=== PATIENT | male | born 2000 | race Caucasian/White ===

== ENCOUNTER 2025-07-25 18:20 | Emergency (ER) | payer SELFPAY ==
[2025-07-25 18:20] VITALS: BP 141/73; PULSE 109; RESP 22; TEMP 37.4; O2SAT 99; BMI 24.4
--- OUTSIDE RECORDS SUMMARY | 2025-07-25 18:42 | XMS_ITS | Encounter Summary ---
Author Organization [facility] Address [address] [place] [address] Care Team Providers Care Holistic Pulser Name Role Phone Franky Starkey MD Primary Care Provider +1 -[phone] Encounter Details Date Type Department Care Team (Latest Contact Info) Description 09/25/2003 Outpatient Historical 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
--- OUTSIDE RECORDS SUMMARY | 2025-07-25 18:42 | XMS_ITS | Encounter Summary ---
Author Organization [facility] Address [address] [place] [address] Care Team Providers Care E Commerce Retailer Name Role Phone Franky Starkey MD Primary Care Provider +1 -[phone] Encounter Details Date Type Department Care Team (Latest Contact Info) Description 08/22/2001 [facility] [place] [address] [phone] Alfred Vera MD [address] [phone] Unspecified otitis media (Primary Dx) Social History Tobacco Use Types Packs/Day Years Used Date Smoking Tobacco: Never Assessed Sex and Gender Information Value Date Recorded Sex Assigned at Not on file Legal 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
--- OUTSIDE RECORDS SUMMARY | 2025-07-25 18:42 | XMS_ITS | Encounter Summary ---
Author Organization [facility] Address [address] 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
--- OUTSIDE RECORDS SUMMARY | 2025-07-25 18:42 | XMS_ITS | Encounter Summary ---
Author Organization [facility] Address [address] [place] [address] Care Team Providers Care Patient Ambassador Name Role Phone Franky Starkey MD Primary Care Provider +1 -[phone] Encounter Details Date Type Department Care Team (Latest Contact Info) Description 10/25/2001 Outpatient Historical [facility] Medicine [place] [address] [address] Car Suazo DO NO ADDRESS ON FILE ACUTE URI NOS (Primary Dx) Social History Tobacco Use Types Packs/Day Years Used Date Smoking Tobacco: Never Assessed Sex and Gender Information Value Date Recorded Sex Assigned at Not on file 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
--- OUTSIDE RECORDS SUMMARY | 2025-07-25 18:42 | XMS_ITS | Encounter Summary ---
Author Organization [facility] Address [address] [place] [address] Care Team Providers Care Sound Mixer Name Role Phone Franky Starkey MD Primary Care Provider +1 -[phone] Encounter Details Date Type Department Care Team (Latest Contact Info) Description 12/27/2002 Outpatient Historical [facility] Medicine [place] [address] [phone] Alfred Vera MD [address] [address] ACUTE URI NOS (Primary Dx) Social History Tobacco Use Types Packs/Day Years Used Date Smoking Tobacco: Never Assessed Sex and Gender Information Value Date Recorded Sex Assigned at Not on file Legal 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
--- OUTSIDE RECORDS SUMMARY | 2025-07-25 18:42 | XMS_ITS | Encounter Summary ---
Author Organization [facility] Address [address] [place] [address] Care Team Providers Care Slate Roofer Helper Name Role Phone Franky Starkey MD Primary Care Provider +1 -[phone] Encounter Details Date Type Department Care Team (Latest Contact Info) Description 02/20/2002 Outpatient Historical [facility] Family Medicine- [place] [address] [facility] [place] [address] Nevin Hinojosa MD NO ADDRESS ON FILE ACUTE PHARYNGITIS (Primary Dx) Social History Tobacco Use Types Packs/Day Years Used Date Smoking Tobacco: Never Assessed Sex and Gender Information Value Date Recorded Sex Assigned at Not on file 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
--- OUTSIDE RECORDS SUMMARY | 2025-07-25 18:42 | XMS_ITS | Encounter Summary ---
Author Organization [facility] Address [address] [place] [address] Care Team Providers Care Data Migration Lead Name Role Phone Franky Starkey MD Primary Care Provider +1 -[phone] Encounter Details Date Type Department Care Team (Latest Contact Info) Description 03/09/2003 Outpatient Historical 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
--- OUTSIDE RECORDS SUMMARY | 2025-07-25 18:42 | XMS_ITS | Encounter Summary ---
Author Organization [facility] Address [address] [place] [address] Care Team Providers Care Estate Administrator Name Role Phone Franky Starkey MD Primary Care Provider +1 -[phone] Encounter Details Date Type Department Care Team (Latest Contact Info) Description 07/31/2002 Outpatient Historical [facility] Medicine [place] [address] [phone] Alfred Vera MD [address] [phone] OTITIS MEDIA NOS (Primary Dx); ACUTE BRONCHITIS; IMPACTED CERUMEN Social History Tobacco Use Types Packs/Day Years Used Date Smoking Tobacco: Never Assessed Sex and Gender Information Value Date Recorded Sex Assigned at Not on file Legal Sex Male 3:58 AM APPEALS ANALYST Gender Identity Not on file Sexual Orientation Not on file documented as of this encounter Plan of Treatment Not on file documented as of this encounter Visit Diagnoses Diagnosis Unspecified otitis media- Primary Acute bronchitis Impacted cerumen documented in this encounter Care Teams Estate Administrator Relationship Specialty Start Date End Date Franky Starkey MD [address] [phone] PCP - General Family Practice 03/03/17 09/07/17 documented as of this encounter
--- OUTSIDE RECORDS SUMMARY | 2025-07-25 18:42 | XMS_ITS | Encounter Summary ---
Author Organization [facility] Address [address] [place] [address] Care Team Providers Care Continuous Miner Name Role Phone Franky Starkey MD Primary Care Provider +1 -[phone] Encounter Details Date Type Department Care Team (Latest Contact Info) Description 12/04/2002 Outpatient Historical [facility] Medicine [place] [address] [phone] Alfred Vera MD [address] [address] INFEC OTITIS EXTERNA NOS (Primary Dx); IMPACTED CERUMEN; SPEECH/LANGUAGE DIS NEC Social History Tobacco Use Types Packs/Day Years Used Date Smoking Tobacco: Never Assessed Sex and Gender Information Value Date Recorded Sex Assigned at Not on file Legal Sex Male 3:58 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
--- OUTSIDE RECORDS SUMMARY | 2025-07-25 18:43 | XMS_ITS | Encounter Summary ---
Author Organization [facility] Address [address] [place] [address] Care Team Providers Care Candy Cutter Machine Name Role Phone Franky Starkey MD Primary Care Provider +1 -[phone] Encounter Details Date Type Department Care Team (Late st Contact Info) Description 12/23/2005 Outpatient Historical [facility] [address] [place] [phone] Social History Tobacco Use Types Packs/Day Years Used Date Smoking Tobacco: Never Assessed Sex and Gender Information Value Date Recorded Sex Assigned at Not on file Legal 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
--- OUTSIDE RECORDS SUMMARY | 2025-07-25 18:43 | XMS_ITS | Encounter Summary ---
Author Organization [facility] Address [address] [place] [address] Care Team Providers Care Indian Blanket Weaver Name Role Phone Franky Starkey MD Primary Care Provider +1 -[phone] Encounter Details Date Type Department Care Team (Latest Contact Info) Description 10/29/2003 Outpatient Historical [facility] Medicine [place] [address] [address] Car Suazo DO NO ADDRESS ON FILE ACUTE BRONCHITIS (Primary Dx) Social History Tobacco Use Types Packs/Day Years Used Date Smoking Tobacco: Never Assessed Sex and Gender Information Value Date Recorded Sex Assigned at Not on file Legal 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
--- OUTSIDE RECORDS SUMMARY | 2025-07-25 18:43 | XMS_ITS | Encounter Summary ---
Author Organization [facility] Address [address] [place] [address] Care Team Providers Care Etymology Teacher Name Role Phone Franky Starkey MD Primary Care Provider +1 -[phone] Encounter Details Date Type Department Care Team (Latest Contact Info) Description 12/06/2006 Outpatient Historical [facility] Medicine [place] [address] [address] Shoshana Mills NP NO ADDRESS ON FILE Acute Pharyngitis (Primary Dx); Cough Social History Tobacco Use Types Packs/Day Years Used Date Smoking Tobacco: Never Assessed Sex and Gender Information Value Date Recorded Sex Assigned at Not on file Legal 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
--- OUTSIDE RECORDS SUMMARY | 2025-07-25 18:43 | XMS_ITS | Encounter Summary ---
Author Organization [facility] Address [address] [place] [address] Care Team Providers Care Aerospace Engineer Name Role Phone Franky Starkey MD Primary Care Provider +1 -[phone] Encounter Details Date Type Department Care Team (Latest Contact Info) Description 12/22/2005 Outpatient Historical [facility] Medicine [place] [address] [phone] Gi Perez, TENTERING MACHINE FEEDER [address] [place] [phone] ACUTE URI NOS (Primary Dx); COUGH Social History Tobacco Use Types Packs/Day Years Used Date Smoking Tobacco: Never Assessed Sex and Gender Information Value Date Recorded Sex Assigned at Not on file Legal Sex Male 3:58 AM HAT IRONER Gender Identity Not on file Sexual Orientation Not on file documented as of this encounter Plan of Treatment Not on file documented as of this encounter Visit Diagnoses Diagnosis Acute upper respiratory infections of unspecified site- Primary Cough documented in this encounter Care Teams Aerospace Engineer Relationship Specialty Start Date End Date Franky Starkey MD [address] [phone] PCP - General Family Practice 03/03/17 09/07/17 documented as of this encounter
--- OUTSIDE RECORDS SUMMARY | 2025-07-25 18:43 | XMS_ITS | Encounter Summary ---
Author Organization [facility] Address [address] [place] [address] Care Team Providers Care After School Coordinator Name Role Phone Franky Starkey MD Primary Care Provider +1 -[phone] Encounter Details Date Type Department Care Team (Latest Contact Info) Description 12/09/2005 Outpatient Historical [facility] Medicine [place] [address] [address] Nevin Hinojosa MD NO ADDRESS ON FILE Dermatitis due to plant (Primary Dx) Social History Tobacco Use Types Packs/Day Years Used Date Smoking Tobacco: Never Assessed Sex and Gender Information Value Date Recorded Sex Assigned at Not on file Legal Sex Male 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
--- OUTSIDE RECORDS SUMMARY | 2025-07-25 18:43 | XMS_ITS | Encounter Summary ---
Author Organization [facility] Address [address] [place] [address] Care Team Providers Care Electronic Scale Assembler And Tester Name Role Phone Franky Starkey MD Primary Care Provider +1 -[phone] Encounter Details Date Type Department Care Team (Latest Contact Info) Description 01/16/2005 Outpatient Historical [facility] Medicine [place] [address] [phone] Shoshana Mills NP NO ADDRESS ON FILE Routine child health exam (Primary Dx) Social History Tobacco Use Types Packs/Day Years Used Date Smoking Tobacco: Never Assessed Sex and Gender Information Value Date Recorded Sex Assigned at Not on file Legal 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
--- OUTSIDE RECORDS SUMMARY | 2025-07-25 18:43 | XMS_ITS | Encounter Summary ---
Author Organization [facility] Address [address] [place] [address] Care Team Providers Care Operations Manager Name Role Phone Franky Starkey MD Primary Care Provider +1 -[phone] Encounter Details Date Type Department Care Team (Latest Contact Info) Description 02/04/2005 Outpatient Historical [facility] Family Medicine- [place] [address] [place] [address] Shoshana Mills NP NO ADDRESS ON FILE ACUTE PHARYNGITIS (Primary Dx); ACUTE BRONCHITIS Social History Tobacco Use Types Packs/Day Years Used Date Smoking Tobacco: Never Assessed Sex and Gender Information Value Date Recorded Sex Assigned at Not on file 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
--- OUTSIDE RECORDS SUMMARY | 2025-07-25 18:43 | XMS_ITS | Encounter Summary ---
Author Organization [facility] Address [address] [place] [address] Care Team Providers Care Dragger Out Name Role Phone Franky Starkey MD Primary Care Provider +1 -[phone] Encounter Details Date Type Department Care Team (Latest Contact Info) Description 04/22/2006 Outpatient Historical [facility] Medicine [place] [address] [address] Nevin Hinojosa MD NO ADDRESS ON FILE Dermatitis due to Plant (Primary Dx) Social History Tobacco Use Types Packs/Day Years Used Date Smoking Tobacco: Never Assessed Sex and Gender Information Value Date Recorded Sex Assigned at Not on file Legal Sex Male 3:58 AM ADON Gender Identity Not on file Sexual Orientation Not on file documented as of this encounter Plan of Treatment Not on file documented as of this encounter Visit Diagnoses Diagnosis Dermatitis due to plant- Primary Contact dermatitis and other eczema due to plants (except food) documented in this encounter Care Teams Dragger Out Relationship Specialty Start Date End Date Franky Starkey MD [address] [phone] PCP - General Family Practice 03/03/17 09/07/17 documented as of this encounter
--- OUTSIDE RECORDS SUMMARY | 2025-07-25 18:43 | XMS_ITS | Encounter Summary ---
Author Organization [facility] Address [address] [place] [address] Care Team Providers Care Bicycle Repairer Name Role Phone Franky Starkey MD Primary Care Provider +1 -[phone] Encounter Details Date Type Department Care Team (Latest Contact Info) Description 07/20/2006 Outpatient Historical [facility] Medicine [place] [address] [phone] Gi Perez, DIGITAL ASSOCIATE [address] [place] [phone] Acute Upper Respiratory Infections of Unspecified Site (Primary Dx) Social History Tobacco Use Types Packs/Day Years Used Date Smoking Tobacco: Never Assessed Sex and Gender Information Value Date Recorded Sex Assigned at Not on file Legal 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
--- OUTSIDE RECORDS SUMMARY | 2025-07-25 18:43 | XMS_ITS | Clinical Summary ---
Author Organization [facility] [place] [address] Care Team Providers Care It Trainer Name Role Phone Unavailable Primary Care Provider Unavailabl e Allergies No known active allergies Medications cephALEXin (KEFLEX) 500 mg capsule Take 1 Capsule (500 mg) by mouth 4 times daily. 20 Capsule None 12/21/2018 Active HYDROcodone-indigo taminophen (NORCO) 5-325 mg tablet Take 1 Tablet by mouth every 4 hours as needed for Pain. Max Daily Amount: 6 Tablets 4 Tablet 01/12/2019 Active Active Problems Problem Noted Date Diagnosed Date Cellulitis of left lower extremity 05/20/2020 Environmental tobacco smoke exposure 11/28/2015 Immunizations Immunization Administration Dates Next Due (ADACEL/BOOSTRIX)(10 YR UP) TDAP VACCINE, 0.5ML, IM 12/21/2018 (M-M-R II/PRIORIX)(12 MO UP) MEASLES, MUMPS AND RUBELLA VIRUS VACCINE, 0.5 ML IM/SUBCUT 01/16/2005 Dt Dtp Dtap Vaccine 01/16/2005 HPV Vaccine 3 Dose IM VFC 09/05/2010 IPV/OPV 01/16/2005 Meningococcal A Conjugate Vaccine IM VFC 010 Family History Medical History Relation Name Comments Healthy Father Ovarian Cancer Maternal Grandmother Cancer Mother cervical cancer Colon Cancer Paternal Grandfather Healthy Paternal Grandmother Relation Name Status Comments Father Alive Maternal Grandmother Alive Mother Alive Paternal Grandfather Paternal Grandmother Social History Tobacco Use Types Packs/Day Years Used Date Smoking Tobacco: Every Day Cigarettes Smokeless Tobacco: Never Alcohol Use Standard Drinks/Week Comments No 0 (1 standard drink = 0.6 oz pur e alcohol) Sex and Gender Information Value Date Recorded Sex Assigned at Not on file Legal Sex Male 3:58 AM 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 Gender Identity Not on file Sexual Orientation Not on file Occupation Industry Job Start Date Job End Date Not on file Not on file Not on file Not on file Last Filed Vital Signs Vital Sign Reading Time Taken Comments Blood Pressure 151/78 09/15/2020 4:10 PM 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 Pulse 94 05/16/2020 3:44 PM CDT Temperature 36.7 C (98 F) 09/15/2020 4:10 PM 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 Respiratory Rate 18 09/15/2020 3:30 PM 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 Oxygen Saturation 100% 09/15/2020 4:10 PM 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 Inhaled Oxygen Concentration - - Weight 81.5 kg (179 lb 9.6 oz) 09/15/2020 3:30 P M 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 Height 182.9 cm (6') 09/15/2020 3:30 PM 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 Body Mass Index 24.36 09/15/2020 3:30 PM 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 Plan of Treatment Health Maintenance Due Date Last Done Comments HPV VACCINES (2 - Male 2-dose series) 03/06/2011 HEPATITIS B VACCINES (1 of 3 - 19+ 3-dose series) 2018 INFLUENZA VACCINE (#1) 2025 DTAP/TDAP/TD VACCINES (3 - Td or Tdap) 12/21/2028, 01/16/2005 CHLAMYDIA SCREENING (ANNUAL) 11-24 YEARS Discontinued 05/16/2020 Procedures Procedure Name Priority Date/Time Associated Diagnosis Comments GC/CHLAMYDIA, URINE Stat 05/16/2020 4 :14 PM CDT from Last 3 Months or Most Recently Relevant to Health Maintenance Results * GC/CHLAMYDIA, URINE (05/16/2020 4:14 PM CDT) CHLAMYDIA DNA AMPLIFICATION NOT DETECTED Not Detected 05/17/2020 7:06 PM CDT [facility] GC DNA AMPLIFICATION NOT DETECTED Not Detected 05/17/2020 7:06 PM CDT [facility] Urine URINE SPECIMEN / Unknown Collection / Unknown 05/16/2020 4:14 PM CDT 05/16/2020 4:40 PM CDT Narrative [facility] - 05/17/2020 7:06 PM CDT Results should not be used for the evaluation of suspected sexual abuse or for other medico-legal indications. The only legally accepted results are from culture. Results cannot be used to assess therapeutic success or failure since nucleic acids may persist following antimicrobial therapy. Raciel Avelar DO URINE ORDERABLES COM Final Re sult [id number] [address] [place] [address] from Last 3 Months or Most Recently Relevant to Health Maintenance Insurance [employer] * Guarantor: NATANAEL WHITTAKER Account Type Relation to Patient Date of Phone Billing Address Third Constitution Party Liability Other
--- OUTSIDE RECORDS SUMMARY | 2025-07-25 18:43 | XMS_ITS | Encounter Summary ---
Author Organization [facility] Address [address] [place] [address] Care Team Providers Care Retail Merchandising Manager Name Role Phone Franky Starkey MD Primary Care Provider [phone] Encounter Details Date Type Department Care Team (Latest Contact Info) Description 03/12/2004 Outpatient Historical 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
--- OUTSIDE RECORDS SUMMARY | 2025-07-25 18:43 | XMS_ITS | Clinical Summary ---
Author Organization [facility] Address [address] Attn: Epic Prelude ADT [place] [address] Care Team Providers Care Wellness Instructor Name Role Phone Unavailable Primary Care Provider Unavailabl e Allergies No known active allergies Medications gabapentin (NEURONTIN) 300 mg capsule Take 1 Capsule (300 mg) by mouth every 8 hours. 90 Capsule 05/14/2025 Active QUEtiapine (SEROquel) 50 mg tablet Take 1 Tablet (50 mg) by mouth 2 times daily. 30 Tablet 05/14/2025 Active sertraline (ZOLOFT) 50 mg tablet Take 1 Tablet (50 mg) by mouth daily. 30 Tablet 05/15/2025 Active Active Problems Problem Noted Date Diagnosed Date Substance induced mood disorder 05/10/2025 Severe episode of recurrent major depressive disorder, without psychotic features 05/10/2025 COVID-19 virus infection 10/18/2023 Traumatic closed fracture of distal phalanx of finger with minimal displacement 07/21/2022 Nail avulsion, finger, initial encounter 022 Current severe episode of ma victorino depressive disorder without psychotic features without prior episode 08/07/2021 Suicide attempt 08/07/2021 Drug overdose, intentional self-harm, initial en counter 08/07/2021 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 Cannabis abuse, daily use 08/07/2021 Intentional acetaminophen overdose 08/01/2021 Suicide ideation 08/01/2021 Methamphetamine abuse 08/01/2021 Abrasion of right cornea 08/01/2021 Cellulitis of left lower extremity 05/20/2020 Tobacco use disorder 11/28/2015 Suicidal behavior with attempted self-injury Encounters Date Type Department Care Team Description 07/11/2025 External Device Data [facility]CTION Provider, Abstract 06/12/2025 External Device Data [facility] Provider, Abstract 06/12/2025 External Device Data [facility] Provider, Abstract 06/05/2025 External Device Data [facility] Provider, Abstract 06/05/2025 External Device Data [facility] Provider, Abstract 06/05/2025 External Device Data [facility] Provider, Abstract 05/13/2025 Plan of Care Documentation [address] [address] 05/11/2025 Plan of Care Documentation [address] [address] 05/10/2025 Plan of Care Documentation [address] [address] 05/09/2025 1:18 PM CDT - 05/14/2025 9:36 PM CDT Hospital Encounter [address] [address] Becki Galvan MD Substance induced mood disorder (CMS/HCC) Discharge Disposition: Home or Self Care 05/09/2025 12:30 AM CDT - 05/09/2025 11:59 PM CDT Hospital Encounter [facility] [place] [address] [place] [address] Eamon Schreiber MD Ambulance, [facility] Discharge Disposition: [facility] 05/09/2025 Travel 05/08/2025 11:04 PM CDT - 05/09/2025 12:02 PM CDT Emergency [facility] Emergency Department [address] [place] [address] Donald Rosen MD Reinhard, Kevin H, MD Plate, Rachel, MD Suicidal ideation (Primary Dx) [facility] from Last 3 Months Immunizations Immunization Administration Dates Next Due (ADACEL/BOOSTRIX)(10 YR UP) TDAP VACCINE, 0.5ML, IM 08/25/2021,12/21/2018 (M-M-R II/PRIORIX)(12 [place] UP) MEASLES, MUMPS AND [...] Tobacco: Every Day Cigarettes Smokeless Tobacco: Never Tobacco Cessation:Ready to Q uit: Not Asked; Counseling Given: Not Answered Alcohol Use Standard Drinks/Week Comments Not Currently 3 (1 standard drink = 0.6 oz pur e alcohol) Feeling Safe Answer Date Recorded Are you in a relationship wi th someone who hurts you emotionally and/or physically? No 05/09/2025 Food Insecurity Answer Date Recorded Patient needs follow up regardin 05/09/2025 Transportation Needs Answer Date Record ed Patient needs follow up regardin 05/09/2025 Utility Needs Answer Date Recorded Patient needs follow up regardin 05/09/2025 Sex and Gender Information Value Date Recorded Sex Assigned at Not on file Legal Sex Male 1:58 PM [employer] Gender Identity Not on file Sexual Orientation Not on file Last Filed Vital Signs Vital Sign Reading Time Taken Comments Blood Pressure 133/69 05/14/2025 7:44 PM CDT Pulse 79 05/14/2025 7:44 PM CDT Temperature 37.1 C (98.8 F) 05/14/2025 7:44 PM CDT Respiratory Rate 18 05/14/2025 7:44 PM CDT Oxygen Saturation 97% 05/14/2025 7:44 PM CDT Inhaled Oxygen Concentration - - Weight 75.9 kg (167 lb 6.4 oz) 05/09/2025 2:00 P M CDT Height 180.3 cm (5' 11 ) 05/09/2025 2:00 PM CDT Body Mass Index 23.35 05/09/2025 2:00 PM CDT Plan of Treatment Health Maintenance Due Date Last Done Comments HPV VACCINES (2 - Male 2-dos e series) 03/06/2011 09/05/2010 INFLUENZA VACCINE (#1) 2025 DTAP/TDAP/TD VACCINES (4 - T d or Tdap) 08/25/2031 08/25/2021, 12/21/2018, 01/16/2005 HEPATITIS B VACCINES Completed 01/06/2000, 1999, 1999 Abdominal Aortic Aneurysm (A AA) Screening Completed 06/06/2012 Procedures Procedure Name Priority Date/Time Associated Diagnosis Comments EXTRA TUBE (URINE ROSA) Stat 05/09/2025 12:11 AM CDT DRUG SCREEN, URINE Stat 05/09/2025 12 :11 AM CDT URINALYSIS W/REFLEX MICROSCOPIC Stat 05/09/2025 12:11 AM CDT ETHANOL LEVEL Stat 05/08/2025 11:42 PM CDT COMPREHENSIVE METABOLIC PANEL Stat 05/08/2025 11:42 PM CDT CBC WITH DIFFERENTIAL Stat 05/08/2025 11:[address] ABDOMEN PELVIS WO CONTRAST Stat 06/06/2012 4:07 PM CDT Back pain Viral infection in conditions classified elsewhere and of unspecified site from Last 3 Months or Most Recently Relevant to Health Maintenance Results * EXTRA TUBE (URINE ROSA) (05/09/2025 12:11 AM CDT) Urine URINE SPECIMEN OBTAINED BY CLEAN CATCH PROCEDURE / Unknown Collection / Unknown 05/09/2025 12:11 AM CDT 05/09/2025 12:29 AM CDT Donald Rosen MD URINE ORDERABLES Final Result [facility] # [id number] [address] [address] * (ABNORMAL) DRUG SCREEN, URINE (05/09/2025 12:11 AM CDT) [facility] AMPHETAMINE QUAL, URINE Presumptive Positive(A) Negative 05/09/2025 1:13 AM [facility] BARBITURATE QUAL, URINE Negative Negative 05/09/2025 1:13 AM [facility] BENZODIAZEPINE QUAL, URINE Negative Negative 05/09/2025 1:13 AM [facility] COCAINE QUAL URINE Negative Negative 05/09/2025 1:13 AM [facility] OPIATE QUAL, URINE Negative Negative 05/09/2025 1:13 AM [facility] CANNABINOIDS QUAL, URINE Presumptive Positive(A) Negative 05/09/2025 1:13 AM [facility] OXYCODONE QUAL, URINE Negative Negative 05/09/2025 1:13 AM [facility] METHADONE QUAL, URINE Negative Negative 05/09/2025 1:13 AM [facility] FENTANYL QUAL, URINE Negative Negative 05/09/2025 1:13 AM [facility] CREATININE, URINE 502.9(H) 40.0 - 278.0 mg/dL 05/09/2025 1:13 AM [facility] Comment:Reference Range vari es with fluid intake and diet. Urine URINE SPECIMEN OBTAINED BY CLEAN CATCH PROCEDURE / Unknown Collection / Unknown 05/09/2025 12:11 AM T 05/09/2025 12:31 AM [facility] Narrative [facility] - 05/09/2025 1:13 AM [facility] This test is a qualitative screen. The presumptive positive results should not be used for legal purposes. If confirmation of results is desired, the lab must be contacted without delay. Drug Ref. Range Screening Threshold Amphetamines Negative 500 ng/mL Barbiturates Negative 200 ng/mL Benzodiazepines Negative 100 ng/mL Cannabinoids Negative 50 ng/mL Cocaine Metabolite Negative 300 ng/mL Opiate Negative 300 ng/mL Oxycodone Negative 100 ng/mL Methadone Negative 300 ng/mL Fentanyl Negative 5 ng/mL Donald Rosen MD URINE ORDERABLES Final Result [facility] CLIA # [id number] [facility], 1929[address] [address] [place] [address] * (ABNORMAL) URINALYSIS WITH REFLEX MICROSCOPIC (05/09/2025 12:11 AM CDT) COLOR UA Yellow Pale to Dark Yellow 05/09/2025 12:43 AM T [facility] CLARITY UA Clear Clear 05/09/2025 12:43 AM T [facility] SPECIFIC GRAVITY UA 1.037(H) 1.003 - 1.035 05/09/2025 12:43 AM T [facility] PH UA 6.0 5.0 - 8.0 05/09/2025 12:43 AM T [facility] LEUKOCYTE ESTERASE UA Trace(A) Negative 05/09/2025 12:43 AM T [facility] NITRITE UA Negative Negative 05/09/2025 12:43 AM [facility] PROTEIN UA 1+(A) Negative 05/09/2025 12:43 AM [facility] GLUCOSE UA Trace(A) Negative 05/09/2025 12:43 AM [facility] KETONES UA Trace(A) Negative 05/09/2025 12:43 AM [facility] UROBILINOGEN UA 4.0(A) <2.0 mg/dL 12:43 AM T [facility] BILIRUBIN UA Negative Negative 05/09/2025 12:43 AM T [facility] BLOOD UA Negative Negative 05/09/2025 12:43 AM T [facility] WBC UA 3-5(A) 0 - 2 /hpf 05/09/2025 12:43 AM T [facility] RBC UA 0-2 0 - 2 /hpf 05/09/2025 12:43 AM T [facility] BACTERIA UA Negative Negative /hpf 05/09/2025 12:43 AM CDT [facility] CALCIUM OXALATE, URINE Present(A) Absent 05/09/2025 12:43 AM CDT [facility] Urine URINE SPECIMEN OBTAINED BY CLEAN CATCH PROCEDURE / Unknown Collection / Unknown 05/09/2025 12:11 AM CDT 05/09/2025 12:29 AM CDT Donald Rosen MD URINE ORDERABLES Final Result [facility] CLIA # [id number] [address] [address] [place] [address] * (ABNORMAL) CBC WITH DIFFERENTIAL (05/08/2025 11:42 PM CDT) WBC 12.6(H) 4.5 - 11.0 K/uL 05/08/2025 11:57 PM CDT [facility] RBC 4.55(L) 4.60 - 6.20 M/uL 05/08/2025 11:57 PM CDT [facility] HEMOGLOBIN 14.5 14.0 - 18.0 g/dL 05/08/2025 11:57 PM T [facility] HEMATOCRIT 40.7(L) 41.0 - 53.0 % 05/08/2025 11:57 PM CDT [facility] MCV 89.5 84.0 - 103.0 fL 05/08/2025 11:57 PM CDT [facility] MCH 31.9 27.0 - 34.0 pg 05/08/2025 11:57 PM CDT [facility] MCHC 35.6(H) 30.0 - 35.0 g/dL 05/08/2025 11:57 PM CDT [facility] PLATELETS 318 140 - 440 K/uL 05/08/2025 11:57 PM [facility] MPV 8.8(L) 8.9 - 12.8 fL 05/08/2025 11:57 PM [facility] RDW 12.3 11.0 - 14.5 % 05/08/2025 11:57 PM [facility] RDW-STDEV 40.4 37.0 - 54.0 fL 05/08/2025 11:57 PM [facility] NEUTROPHILS 70 42 - 75 % 05/08/2025 11:57 PM [facility] LYMPHOCYTES 18(L) 24 - 44 % 05/08/2025 11:57 PM [facility] MONOCYTES 9 2 - 10 % 05/08/2025 11:57 PM [facility] EOSINOPHILS 2 0 - 7 % 05/08/2025 11:57 PM [facility] BASOPHILS 1 0 - 1 % 05/08/2025 11:57 PM [facility] IMMATURE GRANULOCYTES 0 0 - 2 % 05/08/2025 11:57 PM [facility] NEUTROPHIL ABSOLUTE 8.79(H) 2.00 - 8.00 K/uL 05/08/2025 11:57 PM [facility] LYMPHOCYTE ABSOLUTE 2.29 1.20 - 4.00 K/uL 05/08/2025 11:57 PM [facility] MONOCYTE ABSOLUTE 1.16(H) 0.10 - 0.60 K/uL 05/08/2025 11:57 PM [facility] EOSINOPHIL ABSOLUTE 0.27 0.00 - 0.70 K/uL 05/08/2025 11:57 PM [facility] BASOPHILS ABSOLUTE 0.06 0.00 - 0.20 K/uL 05/08/2025 11:57 PM [facility] IMMATURE GRANULOCYTES ABSOLUTE 0.02 0.00 - 0.10 K/uL 05/08/2025 11:57 PM [facility] SMEAR REVIEWED: NA - Not Applicable 05/08/2025 11:57 PM [facility] Blood Venipuncture / Unknown 05/08/2025 11:42 PM CDT 05/08/2025 11:50 PM CDT Donald Rosen MD HEMATOLOGY ORDERABLES Final Result Performing Organization Address [facility] Co de Phone Number [facility] CLIA # [id number] [address] [address] * ETHANOL LEVEL (05/08/2025 11:42 PM CDT) ETHANOL <10.10 <10.10 mg/dL 05/09/2025 12:21 AM CDT [facility] ETHANOL % <0.01 <=0.01 %w/v 05/09/2025 12:21 AM CDT [facility] Blood Venipuncture / Unknown 05/08/2025 11:42 PM CDT 05/08/2025 11:50 PM CDT Donald Rosen MD CHEMISTRY ORDERABLES F inal Result Performing Organization Address [facility] Co de Phone Number [facility] CLIA # [id number] [address] [address] * (ABNORMAL) COMPREHENSIVE METABOLIC PANEL (05/08/2025 11:42 PM CDT) SODIUM 140 136 - 145 mmol/L 05/09/2025 12:21 AM CDT [facility] POTASSIUM 3.3(L) 3.5 - 5.1 mmol/L 05/09/2025 12:21 AM CDT [facility] CHLORIDE 104 98 - 107 mmol/L 05/09/2025 12:21 AM CDT [facility] CO2 24 22 - 29 mmol/L 05/09/2025 12:21 AM CDT [facility] CALCIUM 9.0 8.6 - 10.0 mg/dL 05/09/2025 12:21 AM CDT [facility] BUN 18 6 - 20 mg/dL 05/09/2025 12:21 AM [facility] CREATININE 1.05 0.67 - 1.17 mg/dL 05/09/2025 12:21 AM [facility] GLUCOSE 110(H) 74 - 99 mg/dL 05/09/2025 12:21 AM [facility] TOTAL PROTEIN 6.2(L) 6.4 - 8.3 g/dL 05/09/2025 12:21 AM [facility] ALBUMIN 4.4 3.5 - 5.2 g/dL 05/09/2025 12:21 AM [facility] BILIRUBIN TOTAL 0.4 0.0 - 1.0 mg/dL 05/09/2025 12:21 AM [facility] ALKALINE PHOSPHATASE 57 40 - 129 U/L 05/09/2025 12:21 AM [facility] AST 19 10 - 50 U/L 05/09/2025 12:21 AM [facility] ALT 11 <=50 U/L 05/09/2025 12:21 AM [facility] GFR >60 >=60 mL/min/1.7 3 sq meter 05/09/2025 12:21 AM [facility] Comment:eGFR calculated with 2020 CKD-EPI equation. Vegetarian diet, extremely high or low muscle mass, and may affect results. Cystatin C with Glomerular Filtration Rate is a suitable alternative for these patients. ANION GAP 12 9 - 20 mmol/L 05/09/2025 12:21 AM [facility] Blood Venipuncture / Unknown 05/08/2025 11:42 PM CDT 05/08/2025 11:50 PM T Donald Rosen MD CHEMISTRY ORDERABLES F inal Result [facility] CLIA # [id number] [address] [address] [place] [address] * CT ABDOMEN PELVIS WO CONTRAST (06/06/2012 4:07 PM CDT) Anatomical Region Laterality Modality Abdomen Other Narrative 06/06/2012 8:[address] ABDOMEN AND PELVIS, noncontrast 06 June 2012 TECHNIQUE With the patient supine in the scanning gantry, with no oral or IV contrast administered, helical axial imaging was obtained from above the diaphragm through the pelvis at 5 mm increments for 87 axial images. Sagittal and coronal reconstructions are also obtained. DESCRIPTION The heart and lung bases appear unremarkable. The unenhanced liver, spleen, pancreas, gallbladder, adrenal glands, kidneys, the ureters, bladder and appendix appear unremarkable. Small bowel and colon appear unremarkable except for some minimal fluid levels of the small bowel and colon. No obstructive distention or pneumoperitoneum is seen. IMPRESSION no acute abdominal findings Procedure Note Jarvis Schmid MD - 01/14/[address] ABDOMEN AND PELVIS, noncontrast 06 June 2012 TECHNIQUE With the patient supine in the scanning gantry, with no oral or IV contrast administered, helical axial imaging was obtained from above the diaphragm through the pelvis at 5 mm increments for 87 axial images. Sagittal and coronal reconstructions are also obtained. DESCRIPTION The heart and lung bases appear unremarkable. The unenhanced liver, spleen, pancreas, gallbladder, adrenal glands, kidneys, the ureters, bladder and appendix appear unremarkable. Small bowel and colon appear unremarkable except for some minimal fluid levels of the small bowel and colon. No obstructive distention or pneumoperitoneum is seen. IMPRESSION no acute abdominal findings us Celi Gusman MD CT ORDERABLES Final Result from Last 3 Months or Most Recently Relevant to Health Maintenance Advance Directives For more information, please contact: [phone] * Full Code (Latest Code Status on File) Date Activated Date Inactivated Comments 05/09/2025 1:27 PM 05/14/2025 11:42 PM * Full Code Date Activated Date Inactivated Comments 05/09/2025 7:16 AM 05/09/2025 1:18 PM * Full Code Date Activated Date Inactivated Comments 08/06/2021 10:44 PM 08/11/2021 6:16 PM * Full Code Date Activated Date Inactivated Comments 08/01/2021 2:49 PM 08/06/2021 8:31 PM
--- OUTSIDE RECORDS SUMMARY | 2025-07-25 18:43 | XMS_ITS | Encounter Summary ---
[facility] Address [address] [place] [address] Care Team Providers Care Pasting Inspector Name Role Phone Franky Starkey MD Primary Care Provider [phone] Encounter Details Date Type Department Care Team (Late st Contact Info) Description 04/12/2004 Outpatient Historical [facility] 06 Daryl Schroeder MD [address] [address] Social History Tobacco Use Types Packs/Day Years Used Date Smoking Tobacco: Never Assessed Sex and Gender Information Value Date Recorded Sex Assigned at Not on file Legal Sex Male 3:58 AM CEO [place] Gender Identity Not on file Sexual Orientation Not on file documented as of this encounter Plan of Treatment Not on file documented as of this encounter Visit Diagnoses Not on filedocumented in this encounter Care Teams Pasting Inspector Relationship Specialty Start Date End Date Franky Starkey MD [address] [phone] PCP - General Family Practice 03/03/17 09/07/17 documented as of this encounter
--- OUTSIDE RECORDS SUMMARY | 2025-07-25 18:43 | XMS_ITS | Encounter Summary ---
Author Organization [facility] Address [address] [place] [address] Care Team Providers Care School Psychologist Assistant Name Role Phone Franky Starkey MD Primary Care Provider +1 [phone] Encounter Details Date Type Department Care Team (Latest Contact Info) Description 01/01/2005 Outpatient Historical [facility] Medicine [place] [address] [address] Nevin Hinojosa MD NO ADDRESS ON FILE ACUTE URI NOS (Primary Dx) Social History Tobacco Use Types Packs/Day Years Used Date Smoking Tobacco: Never Assessed Sex and Gender Information Value Date Recorded Sex Assigned at Not on file Legal 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
--- OUTSIDE RECORDS SUMMARY | 2025-07-25 18:43 | XMS_ITS | Encounter Summary ---
Author Organization [facility] Address [address] [place] [address] Care Team Providers Care Health And Safety Specialist Name Role Phone Franky Starkey MD Primary Care Provider [phone] [phone] Encounter Details Date Type Department Care Team (Latest Contact Info) Description 12/22/2001 Outpatient Historical [facility] Medicine [place] [address] [address] Nevin Hinojosa MD NO ADDRESS ON FILE OTITIS MEDIA NOS (Primary Dx); INFEC OTITIS EXTERNA NOS Social History Tobacco Use Types Packs/Day Years Used Date Smoking Tobacco: Never Assessed Sex and Gender Information Value Date Recorded Sex Assigned at Not on file 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
--- OUTSIDE RECORDS SUMMARY | 2025-07-25 18:43 | XMS_ITS | Encounter Summary ---
Author Organization [facility] Address [address] [place] [address] Care Team Providers Care Professional Nursing Assistant Name Role Phone Franky Starkey MD Primary Care Provider [phone] [phone] Encounter Details Date Type Department Care Team (Latest Contact Info) Description 04/20/2001 Outpatient Historical [facility] Family Medicine- [place] [address] [place] [address] Car Suazo, NO ADDRESS ON FILE Unspecified otitis media (Primary Dx); Acute tonsillitis; Acute sinusitis, unspecified Social History Tobacco Use Types Packs/Day Years Used Date Smoking Tobacco: Never Assessed Sex and Gender Information Value Date Recorded Sex Assigned at Not on file 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
--- OUTSIDE RECORDS SUMMARY | 2025-07-25 18:43 | XMS_ITS | Encounter Summary ---
Author Organization [facility] Address [address] [place] [address] Care Team Providers Care Pantomimist Name Role Phone Franky Starkey MD Primary Care Provider [phone] [phone] Encounter Details Date Type Department Care Team (Latest Contact Info) Description 12/07/2001 Outpatient Historical [facility] Family Medicine- [place] [address] [place] [address] Alfred Vera MD [address] [facility] [address] [place] [phone] OTITIS MEDIA NOS (Primary Dx); OTALGIA NOS; IMPACTED CERUMEN Social History Tobacco Use Types Packs/Day Years Used Date Smoking Tobacco: Never Assessed Sex and Gender Information Value Date Recorded Sex Assigned at Not on file 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
--- OUTSIDE RECORDS SUMMARY | 2025-07-25 18:43 | XMS_ITS | Encounter Summary ---
Author Organization [facility] Address [address] [place] [address] Care Team Providers Care Lathe Sander Name Role Phone Franky Starkey MD Primary Care Provider [phone] [phone] Encounter Details Date Type Department Care Team (Latest Contact Info) Description 01/30/2002 Outpatient Historical [facility] Medicine [place] [address] [phone] Alfred Vera MD [address] [phone] IMPACTED CERUMEN (Primary Dx) Social History Tobacco Use Types Packs/Day Years Used Date Smoking Tobacco: Never Assessed Sex and Gender Information Value Date Recorded Sex Assigned at Not on file 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
--- OUTSIDE RECORDS SUMMARY | 2025-07-25 18:43 | XMS_ITS | Encounter Summary ---
Author Organization [facility] Address [address] [place] [address] Care Team Providers Care Porcelain Waxer Name Role Phone Franky Starkey MD Primary Care Provider +1 [phone] Encounter Details Date Type Department Care Team (Latest Contact Info) Description 08/04/2007 Outpatient Historical [facility] Medicine [place] [address] [phone] Gi Perez, AIRPLANE CAPTAIN [address] [place] [phone] Abdominal Pain, Unspecified Site (Primary Dx); Diarrhea Social History Tobacco Use Types Packs/Day Years Used Date Smoking Tobacco: Never Assessed Sex and Gender Information Value Date Recorded Sex Assigned at Not on file 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
--- OUTSIDE RECORDS SUMMARY | 2025-07-25 18:43 | XMS_ITS | Encounter Summary ---
Author Organization [facility] Address [address] [place] [address] Care Team Providers Care Elementary Esl Teacher Name Role Phone Franky Starkey MD Primary Care Provider [phone] [phone] Encounter Details Date Type Department Care Team (Latest Contact Info) Description 09/14/2006 Outpatient Historical [facility] Medicine [place] [address] [phone] Gi Perez, GAMING CASHIER [address] [place] [phone] Acute Upper Respiratory Infections of Unspecified Site (Primary Dx) Social History Tobacco Use Types Packs/Day Years Used Date Smoking Tobacco: Never Assessed Sex and Gender Information Value Date Recorded Sex Assigned at Not on file 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
--- OUTSIDE RECORDS SUMMARY | 2025-07-25 18:43 | XMS_ITS | Encounter Summary ---
Author Organization [facility] Address [address] [place] [address] Care Team Providers Care Optic Fibre Drawer Name Role Phone Franky Starkey MD Primary Care Provider +1 [phone] Encounter Details Date Type Department Care Team (Latest Contact Info) Description 08/08/2001 Outpatient Historical [facility] Medicine [place] [address] [phone] Alfred Vera MD [address] [phone] Unspecified otitis media (Primary Dx) Social History Tobacco Use Types Packs/Day Years Used Date Smoking Tobacco: Never Assessed Sex and Gender Information Value Date Recorded Sex Assigned at Not on file 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
--- OUTSIDE RECORDS SUMMARY | 2025-07-25 18:43 | XMS_ITS | Encounter Summary ---
Author Organization [facility] Address [address] [place] [address] Care Team Providers Care Health Tech Name Role Phone Franky Starkey MD Primary Care Provider [phone] [phone] Encounter Details Date Type Department Care Team (Latest Contact Info) Description 10/01/2003 Outpatient Historical [facility] Family Medicine- [place] [address] [place] [address] Car Suazo, NO ADDRESS ON FILE PNEUMONIA, ORGANISM NOS (Primary Dx) Social History Tobacco Use Types Packs/Day Years Used Date Smoking Tobacco: Never Assessed Sex and Gender Information Value Date Recorded Sex Assigned at Not on file 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
--- NOTE | 2025-07-25 18:53 | CTR_ITS ---
PROCEDURE INFORMATION: Exam: CT Abdomen And Pelvis With Contrast Exam date and time: 07/25/2025 7:34 PM Age: 25 years old Clinical indication: Abdominal pain; Generalized; Additional info: Abdominal pain/back pain, wait on cmp TECHNIQUE: Imaging protocol: Computed tomography of the abdomen and pelvis with contrast. 223 image(s) are submitted. Radiation optimization: All CT scans at this facility use at least one of these dose optimization techniques: automated exposure control; mA and/or kV adjustment per patient size (includes targeted exams where dose is matched to clinical indication); or iterative reconstruction. Contrast material: OMNIPAQUE 350; Contrast volume: 100 ml; Contrast route: INTRAVENOUS (IV); COMPARISON: No relevant prior studies available. RADIATION DOSE METRICS: Total DLP (mGy-cm): 660.33 FINDINGS: Liver: Normal. No mass. Gallbladder and biliary ducts: Normal. No calcified stones. No ductal dilation. Pancreas: Normal. No ductal dilation. Spleen: Normal. No splenomegaly. Adrenal glands: Normal. No mass. Kidneys and ureters: See Stomach and bowel finding. Stomach and bowel: Fecal material is seen throughout the colon, could represent mild constipation. No evidence of diverticulitis or small bowel obstruction. Normal appendix. No urinary tract obstruction or calculus on either side. 1.1 cm air containing cystic structure in the left side superior sacrum adjacent to the sacroiliac joint seen on image number 60/5, could represent sequela of underlying degenerative changes of the SI joint. Infection is considered less likely. Degenerative disc disease at L3-L4, L4-L5 and L5-S1 level. Abdominal pain is difficult to explain. Appendix: See Stomach and bowel finding. Intraperitoneal space: See Stomach and bowel finding. Vasculature: Unremarkable. No abdominal aortic aneurysm. Lymph nodes: Unremarkable. No enlarged lymph nodes. Urinary bladder: Unremarkable as visualized. Reproductive: Unremarkable as visualized. Bones/joints: See Stomach and bowel finding. Soft tissues: Unremarkable. CT/CT abdomen pelvis w con* [id number] IMPRESSION: Fecal material is seen throughout the colon, could represent mild constipation. No evidence of diverticulitis or small bowel obstruction. Normal appendix. No urinary tract obstruction or calculus on either side. 1.1 cm air containing cystic structure in the left side superior sacrum adjacent to the sacroiliac joint seen on image number 60/5, could represent sequela of underlying degenerative changes of the SI joint. Infection is considered less likely. Degenerative disc disease at L3-L4, L4-L5 and L5-S1 level. Abdominal pain is difficult to explain.
[2025-07-25 19:04] LABS: Hematocrit 43.1 % (37-53); Hemoglobin 15.70 g/dL (11.27-16.99); Mean Corpuscular HGB Conc 36.4 g/dL (30-55); Mean Corpuscular Hemoglobin 31.6 pg (27-33); Mean Corpuscular Volume 86.7 fl (82-101); Nucleated Red Blood Cells % 0 %; Platelet Count 291 10^3/cmm (157-399); Red Blood Count 4.97 10^6/uL (3.85-5.65); White Blood Count 9.01 10^3/uL (3.29-11.43)
--- NOTE | 2025-07-25 19:05 | ED_ITS ---
HPI - Abdominal Pain 2 General: Chief Complaint: Abdominal Pain Stated Complaint: kidney/ flank pain Source: patient Mode of arrival: EMS Limitations: no limitations History of Present Illness: This patient is a 25-year-old male who presents to the emergency department by ambulance, [facility], complaining of bilateral flank pain. He states he has had kidney issues for years, stemming from Tylenol overdose many years ago that left him hospitalized with diffuse organ failure, states that intermittently has had pain but never this severe. He is crying on assessment and refusing to answer questions, is not reporting any nausea or vomiting. Has been able to make urine, no hematuria. States the pain radiates into the abdomen bilaterally. Pain began yesterday, has gradually worsened since and states the pain in his back is sharp and stabbing. No chest pain or shortness of breath. No fevers. States he has not followed up with anyone since being hospitalized. MD elicited complaint: flank pain Pertinent past history: other ( kidney injury from tylenol OD ) Onset (ago): day(s) Pain Consistency: constant Location: L flank and R flank Severity: severe Quality: stabbing and sharp Radiation: other (abdomen) Associated Symptoms: Denies bloating, change in stool character, chills, constipation, diarrhea, dysuria, fever(s), hematochezia, nausea and vomiting Related Data Allergies Allergy/AdvReac Type Severity Reaction Status Date / Time No Known Allergies Allergy Verified 07/25/25 18:27 Review of Systems 2 General: Reports: 10 or more systems reviewed and unremarkable except in HPI and below Const: Denies: fever(s), chills, change in appetite, change in weight or diaphoresis ENMT: Denies: throat pain or hoarseness Card: Denies: chest pain, palpitations or lightheadedness Resp: Denies: dyspnea, productive cough or wheezing GI: Reports: abdominal pain; Denies: nausea, vomiting, diarrhea, constipation, bloating, change in stool character or hematochezia : Reports: flank pain; Denies: difficulty urinating, dysuria, urinary frequency or urinary urgency Musc: Denies: neck pain or back pain Skin/Breast: Denies: rash or new lesions Neuro: Denies: headache(s) or dizziness Physical Exam 2 Const: COMMON NORMALS: average body habitus, patient oriented x3, alert and well nourished GENERAL APPEARANCE: cooperative ORIENTATION/CONSCIOUSNESS: Yes awake OTHER: Nontoxic-appearing, tearful Eye: COMMON NORMALS: Equal, round and reactive pupils present and EOMs intact bilaterally PUPIL: Yes Equal, round and reactive pupils present Neck/C-Spine: COMMON NORMALS: full ROM, supple, no meningeal signs and no JVD Resp: COMMON NORMALS: normal respiratory effort, No retractions, No use of accessory muscles and clear to auscultation bilaterally AUSCULTATION: clear to auscultation bilaterally, no crackles, no rales, no rhonchi and no wheezes Cardio: COMMON NORMALS: no JVD, regular rhythm, No gallops present (Cardio), No clicks present (Cardio), No murmurs present (Cardio), No rub (Cardio) and Peripheral pulses 2+ throughout RATE: tachycardic RHYTHM: regular rhythm PERIPHERAL PULSES: Peripheral pulses 2+ throughout GI: COMMON NORMALS: Normal to inspection, nondistended, normoactive bowel sounds present, Soft to palpation, No hepatosplenomegaly present and no masses AUSCULTATION: Yes normoactive bowel sounds PALPATION: Yes Soft to palpation, Yes Tenderness to palpation present (GI) (Diffuse abdominal tenderness to light palpation), Yes Guarding due to palpation present (GI) (Voluntary), No Rigid due to palpation and Yes No hepatosplenomegaly present RECTAL EXAM: Yes deferred Extremity: COMMON NORMALS: normal to inspection and full ROM Neuro: COMMON NORMALS: patient oriented x3, moves all extremities, no focal motor deficits and no sensory deficits noted SENSORIUM/ORIENTATION: Yes alert MENINGEAL SIGNS: Yes no meningeal signs Psych: COMMON NORMALS: mental status grossly normal, cooperative and speech normal SPEECH: Yes normal speech Skin: COMMON NORMALS: no rashes or lesions noted GENERAL SKIN EXAM: no rashes or lesions noted Course 2 Vital Signs: Vital signs: Vital Signs Temperature 99.3 F 07/25/25 18:20 Pulse Rate 80 07/25/25 21:54 Respiratory Rate 18 07/25/25 21:54 Blood Pressure 133/68 07/25/25 21:54 Pulse Oximetry 99 07/25/25 21:54 Oxygen Delivery Me thod Room Air 07/25/25 20:30 MDM - Abdominal Pain Medical Decision Making Patient presenting [facility] with concerns of bilateral flank pain, reporting history of kidney injury from Tylenol overdose. Tearful on exam, diffuse tender to the abdomen, mild tachycardia but otherwise nontoxic-appearing. Still able to make urine, his blood work is all unremarkable including negative urinalysis. CT abdomen and pelvis does not show any acute abnormalities, specifically with his kidneys. He does note significant improvement of his symptoms after Toradol through the IV, suspect musculoskeletal pain and no reason for further lab work, imaging, or admission. He will be discharged back to [facility]. Lab Data 07/25/25 18:34 07/25/25 18:34 Labs/Radiology: Radiology Impressions Abdomen/Pelvis CT 07/25/25 18:53 IMPRESSION: Fecal material is seen throughout the colon, could represent mild constipation. No evidence of diverticulitis or small bowel obstruction. Normal appendix. No urinary tract obstruction or calculus on either side. 1.1 cm air containing cystic structure in the left side superior sacrum adjacent to the sacroiliac joint seen on image number 60/5, could represent sequela of underlying degenerative changes of the SI joint. Infection is considered less likely. Degenerative disc disease at L3-L4, L4-L5 and L5-S1 level. Abdominal pain is difficult to explain. Laboratory Results WBC 9.01 10^3/uL (3.29-11.43) 07/25/25 18: RBC 4.97 10^6/uL (3.85-5.65) 07/25/25 18:34 Hgb 15.70 g/dL (11.27-16.99) 07/25/25 18:34 Hct 43.1 % (37-53) 07/25/25 18:34 MCV 86.7 fl (82-101) 07/25/25 18:34 MCH 31.6 pg (27-33) 07/25/25 18: MCHC 36.4 g/dL (30-55) 07/25/25 18:34 RDW 12.2 % (12.1-15.1) 07/25/25 18:34 Plt Count 291 10^3/cmm (157-399) 07/25/25 18:34 MPV 9.3 fL (7.4-10.4) 07/25/25 18: Neut % (Auto) 80.0 % 07/25/25 18: Lymph % (Auto) 3.1 % 07/25/25 18:34 [place] % (Auto) 14.2 % 07/25/25 18:34 Eos % (Auto) 1.7 % 07/25/25 18:34 Baso % (Auto) 0.7 % 07/25/25 18:34 Neut # (Auto) 7.21 10^3/uL (1.8-7.7) 07/25/25 18:34 Lymph # (Auto) 0.3 10^3/uL (0.8-4.8) L 07/25/25 18:34 [place] # (Auto) 1.3 10^3/uL (0.2-0.9) H 07/25/25 18:34 Eos # (Auto) 0.2 10^3/uL (0.0-0.8) 07/25/25 18:34 Baso # (Auto) 0.1 10^3/uL (0.0-0.1) 07/25/25 18:34 Nucleated RBC % (auto) 0 % 07/25/25 18:34 Nucleated RBCs # 0.0 /100WBC 07/25/25 18:34 Sodium 135 mmol/L (136-145) L 07/25/25 18:34 Potassium 3.5 mmol/L (3.5-5.1) 07/25/25 18:34 Chloride 101 mmol/L (98-107) 07/25/25 18:34 Carbon Dioxide 19 mmol/L (22-29) L 07/25/25 18:34 Anion Gap 18.5 (5-19) 07/25/25 18:34 BUN 17 mg/dL (6-20) 07/25/25 18:34 Creatinine 0.8 mg/dL (0.7-1.2) 07/25/25 18:34 GFR Calculation 116.9 mL/min (90-130) 07/25/25 18:34 Glucose 109 mg/dL (65-115) 07/25/25 18:34 Calculated Osmolality 282 mOsm/kg (285-295) L 07/25/25 18:34 Calcium 9.7 mg/dL (8.5-10.5) 07/25/25 18:34 Total Bilirubin 0.5 mg/dL (0.15-1.2) 07/25/25 18:34 AST 13 U/L (0-40) 07/25/25 18:34 ALT 10 U/L (0-41) 07/25/25 18:34 Alkaline Phosphatase 65 U/L (40-130) 07/25/25 18:34 Total Protein 7.2 g/dL (6.6-8.7) 07/25/25 18:34 Albumin 4.8 g/dL (3.5-5.2) 07/25/25 18:34 Globulin 2.4 g/dL (1.3-4.6) 07/25/25 18:34 Lipase 20 U/L (13-60) 07/25/25 18:34 Urine Color Yellow (Yellow) 07/25/25 19:58 Urine Appearance Clear (CLEAR) 07/25/25 19:58 Urine pH 8.0 (5-7) A 07/25/25 19:58 Ur Specific [place] 1.026 (1.005-1.030) 07/25/25 19:58 Urine Protein Trace (Negative) A 07/25/25 19:58 Urine Glucose (UA) Negative (Normal) 07/25/25 19:58 Urine Ketones 3+ (Negative) H 07/25/25 19:58 Urine Blood Negative (Negative) 07/25/25 19:58 Urine Nitrate Negative (Negative) 07/25/25 19:58 Urine Bilirubin Negative (Negative) 07/25/25 19:58 Urine Urobilinogen 1.0 mg/dL (Negative) 07/25/25 19:58 Ur Leukocyte Esterase Negative (Negative) 07/25/25 19:58 Urine RBC 0-2 /hpf (0-2) 07/25/25 19:58 Urine WBC 0-5 /hpf (0-5) 07/25/25 19:58 Ur Squamous Epith Cells 0-5 /hpf (0-5) 07/25/25 19:58 Amorphous Sediment Not Reportable 07/25/25 19:58 Urine Bacteria None seen /hpf (NONE) 07/25/25 19:58 Hyaline Casts 0-4 /lpf H 07/25/25 19:58 All radiology interpretation(s) finalized by discharge Discharge Plan Discharge Patient Disposition: Home Clinical Impression: Musculoskeletal back pain Condition: Stable Discharge Orders: Discharge ED (Routine); Ordered 07/25/25 Ordered By: Silverio Dockery Referrals: Sanjay Freedman FNP [Primary Care Provider, [facility]] Patient Instructions: Patient Portal & Fausto Instructions Activity Restrictions/Additional Instructions: Musculoskeletal Back Pain Discharge Diagnosis: Acute musculoskeletal low back pain, with normal laboratory, urinalysis, and abdominal/pelvic CT findings. No evidence of infection, nephrolithiasis, or other intra-abdominal pathology. Prognosis: Acute nonspecific low back pain is typically self-limited, with most patients experiencing significant improvement within days to weeks. The absence of red flag symptoms and normal diagnostic workup indicate a very low likelihood of serious underlying disease.[1] https://www.nejm.org/doi/full/10.1056/VPOPyy5545180 [2] https://pubmed.ncbi.nlm.nih.gov/76443184 [3] https://pubmed.ncbi.nlm.nih.gov/15191568 Activity Recommendations: - Encourage early return to normal activities as tolerated, even if mild pain persists. Prolonged bed rest is not recommended, as it may delay recovery.[1] https://www.nejm.org/doi/full/10.1056/EUSLwh7202826 [4] https://www.nejm.org/doi/full/10.1056/ROOQ804004017252642 [5] https://pubmed.ncbi.nlm.nih.gov/14830201 [2] https://pubmed.ncbi.nlm.nih.gov/17 399991 [3] https://pubmed.ncbi.nlm.nih.gov/98411559 - Avoid heavy lifting, repetitive trunk twisting, or activities that exacerbate pain in the acute phase.[4] https://www.nejm.org/doi/full/10.1056/CTMT199112051461230 - Incarcerated patients should be encouraged to participate in available activities and avoid unnecessary inactivity. Analgesia: - Short-term use of NSAIDs (e.g., ketorolac, ibuprofen, naproxen) may be beneficial for symptom relief, provided there are no contraindications (renal impairment, GI ulcer, bleeding risk).[1] https://www.nejm.org/doi/full/10.1056/DKSMkm5837171 [4] https://www.nejm.org/doi/full/10.1056/VUYU310623316401470 [6] https://pubmed.ncbi.nlm.nih.gov/31248315 [2] https://pubmed.ncbi.nlm.nih.gov/17 894721 - If NSAIDs are not tolerated, acetaminophen may be considered, though evidence for efficacy is limited.[6] https://pubmed.ncbi.nlm.nih.gov/87380027 [2] https://pubmed.ncbi.nlm.nih.gov/37061331 - Muscle relaxants may provide additional relief but are associated with sedation and are not routinely recommended.[4] https://www.nejm.org/doi/full/10.1056/KVYZ401696317601258 [6] https://pubmed.ncbi.nlm.nih.gov/61645227 - Opioids are not indicated for uncomplicated musculoskeletal back pain.[6] https://pubmed.ncbi.nlm.nih.gov/15828015 Nonpharmacologic Measures: - Consider use of a heating pad for comfort; limited data suggest possible benefit.[1] https://www.nejm.org/doi/full/10.1056/AGJXey2122010 [2] https://pubmed.ncbi.nlm.nih.gov/13637045 - Physical therapy, core strengthening, or supervised exercise are not indicated acutely but may be considered if pain persists beyond 2-4 weeks or if there is risk of chronicity.[1] https://www.nejm.org/doi/full/10.1056/KFSAao7942397 [5] https://pubmed.ncbi.nlm.nih.gov/57117573 [6] https://pubmed.ncbi.nlm.nih.gov/64261499 - Patient education and reassurance regarding the favorable prognosis are essential.[1] https://www.nejm.org/doi/full/10.1056/VAGEjl8009375 [7] https://pubmed.ncbi.nlm.nih.gov/42759280 [2] https://pubmed.ncbi.nlm.nih.gov/64386243 [3] https://pubmed.ncbi.nlm.nih.gov/09726212 Warning Signs ( Red Flags ): Advise immediate medical attention if any of the following develop: - New or worsening neurological deficits (e.g., leg weakness, numbness, loss of bowel/bladder control) - Fever, chills, or signs of systemic infection - Unexplained weight loss - Severe, unremitting pain, especially at night - History of cancer or immunosuppression[6] https://pubmed.ncbi.nlm.nih.gov/66699285 [2] https://pubmed.ncbi.nlm.nih.gov/91107321 [3] https:/ /pubmed.ncbi.nlm.nih.gov/66568140 Follow-Up: - Routine follow-up is not required unless symptoms persist beyond 4-6 weeks, worsen, or new concerning features arise.[1] https://www.nejm.org/doi/full/10.1056/YVGUcd4523039 [2] https://pubmed.ncbi.nlm.nih.gov/95296264 [3] https://pubmed.ncbi.nlm.nih.gov/20148203 - If pain does not improve within 2 months, consider referral for specialist evaluation and possible supervised exercise or behavioral therapy.[1] https://www.nejm.org/doi/full/10.1056/CMPGca3920954 Prevention of Chronicity: - Early identification of psychosocial barriers (fear avoidance, depression, stress) may help prevent progression to chronic pain.[5] https://pubmed.ncbi.nlm.nih.gov/33339009 [6] https://pubmed.ncbi.nlm.nih.gov/59788133 - Screening tools (e.g., PICK-UP, ?rebro Musculoskeletal Pain Questionnaire) may be considered if available.[1] https://www.nejm.org/doi/full/10.1056/CPJTmq7836309 [8] https://pubmed.ncbi.nlm.nih.gov/01266828 Return to Long Term: - The patient is medically stable for return to penitentiary. No restrictions are required beyond avoidance of activities that exacerbate pain in the acute phase. Patient Education: - Reassure regarding the benign nature and expected recovery of musculoskeletal back pain. - Encourage maintenance of activity and function, as tolerated. - Advise on appropriate use of analgesics and nonpharmacologic measures. - Review warning signs and indications for prompt re-evaluation. References: Recommendations are based on current evidence and consensus from recent reviews and guidelines.[1] https://www.nejm.org/doi/full/10.1056/INILzt5039296 [7] https://pubmed.ncbi.nlm.nih.gov/73864669 [4] https://www.nejm.org/doi/full/10.1056/AXKM803334845853433 [5] https://pubmed.ncbi.nlm.nih.gov/06932685 [6] https://pubmed.ncbi.nlm.nih.gov/76410198 [2] https://pubmed.ncbi.nlm.nih.gov/78082490 [3] https://pubmed.ncbi.nlm.nih.gov/20572010 References * Nonspecific Low Back Pain https://www.nejm.org/doi/full/10.1056/BIYFqx3668092 . Chiarorenatoo A, Sander LANGSTON. The [place] Journal of Medicine. 2021;386(18):3248-0616. doi:10.1056/ETVLtw9860280. * Evaluation and Treatment of Acute Low Back Pain https://pubmed.ncbi.nlm.nih.gov/56985010 . Sinan Barrett. [employer]ician. 2007;75(8):1181-8. * Evaluating and Managing Acute Low Back Pain in the Primary Care Setting https://pubmed.ncbi.nlm.nih.gov/35401743 . Steve SJ, Kathy GALAN. Journal of General Internal Medicine. 2001;16(2):120-31. doi:10.1111/j.1525- 1497.2001.60006.x. * Low Back Pain https://www.nejm.org/doi/full/10.1056/GUOY557240865890648 . Lux Chavez RA. The [place] Journal of Medicine. 2001;344(5):363-70. doi:10.1056/SOOP237956834282251. * Nonspecific Low Back Pain and Return to Work https://pubmed.ncbi.nlm.nih.gov/02421934 . Kip BA, Nancy MA. [place] [employer]ician. 2019;100(11):697-703. * Mechanical Low Back Pain https://pubmed.ncbi.nlm.nih.gov/42699844 . Felipe JS, Hillary DC, Maza JA. [employer]ician. 2018;98(7):421-428. * Prevention and Treatment of Low Back Pain: Evidence, Challenges, and Promising Directions https://pubmed.ncbi.nlm.nih.gov/24286975 . Parker NE, Tramaine JR, Martín D, et al. Lancet ([place], [place]). 2018;391(36034):4512-2617. doi:10.1016/R8611-98261899647-7. * Chronic Low Back Pain in Adults: Evaluation and Management https://pubmed.ncbi.nlm.nih.gov/39142986 . Reji KRISHNAMURTHY, Olga SC, Jorge RB. [place] [employer]ician. 2023;109(3):233-244. Print Language: Faroese Coding Level of Care Code ED Nurse Manager for Ari Beckman
[2025-07-25 19:15] LABS: Alanine Aminotransferase 10 U/L (0-41); Albumin Level 4.8 g/dL (3.5-5.2); Alkaline Phosphatase 65 U/L (40-130); Anion Gap 18.5 (5-19); Aspartate Amino Transferase 13 U/L (0-40); Blood Urea Nitrogen 17 mg/dL (6-20); Calcium 9.7 mg/dL (8.5-10.5); Carbon Dioxide 19 mmol/L (22-29); Chloride 101 mmol/L (98-107); Creatinine Clr Calc Pharmacy 156.7872; Globulin 2.4 g/dL (1.3-4.6); Glucose 109 mg/dL (65-115); Lipase 20 U/L (13-60); Osmolality Calculated 282 mOsm/kg (285-295); Potassium 3.5 mmol/L (3.5-5.1); Sodium 135 mmol/L (136-145); Total Protein 7.2 g/dL (6.6-8.7)
[2025-07-25] MEDS: iohexol 350 mg/mL 500 mL Btl (per mL) IV (19:47)
[2025-07-25 19:50] VITALS: BP 134/62; PULSE 89; O2SAT 98
[2025-07-25] MEDS: ondansetron 2 mg/ML SDV 2 mL 4 MG IVP (19:53)
[2025-07-25 20:00] VITALS: BP 138/70; PULSE 82; O2SAT 99
[2025-07-25 20:05] LABS: Glucose Urine UA Negative (Normal); Nitrate Urine Negative (Negative); Specific Gravity, Urine 1.026 (1.005-1.030)
[2025-07-25 20:11] LABS: Add Urine Microscopic? YES
[2025-07-25 20:30] VITALS: BP 160/57; PULSE 94; O2SAT 99
[2025-07-25 21:00] VITALS: BP 140/71; PULSE 89; O2SAT 97
[2025-07-25 21:54] VITALS: BP 133/68; PULSE 80; RESP 18; O2SAT 99
== END 2025-07-25 21:55 | disposition home or self-care (01) ==
PROVIDERS: Emergency Provider Physician Assistant; PCP Nurse Practitioner Family
DX: M79.18 Myalgia, other site (principal)
CPT/HCPCS: 36415; 74177; 80053; 81001; 83690; 85025; 96374; 96375; 99285; J1885; J2405; J7040

== ENCOUNTER 2025-09-07 16:51 | Inpatient (IN) | payer BC, MEDICAID, SELFPAY ==
[2025-09-07] VITALS (16 sets, daily range): BP systolic 129–165; BP diastolic 76–98; PULSE 79–104; RESP 13–17; TEMP 36.4–36.9; O2SAT 92–100; BMI 27.5; BMI 27.3
--- NOTE | 2025-09-07 16:57 | ECG_ITS ---
[facility] Test Date: 2025-09-07 Pat Name: Kalia Dillard Department: Room: Gender: Male Classroom Assistant: : 2000 Requested By: Mary Cid Order Number: [id number] Omer MD: ALLEY NORTH Measurements Intervals [place] Rate: 90 P: 19 [place]: 136 QRS: 59 QRSD: 101 T: 37 QT: 357 QTc: 438 Interpretive Statements SINUS RHYTHM POSSIBLE RIGHT VENTRICULAR CONDUCTION DELAY [RSR (QR) IN V1/V2] SEPTAL MYOCARDIAL INFARCTION , OF INDETERMINATE AGE [40+ ms Q WAVE IN V1/V2] No previous ECG available for comparison Electronically Signed On 09-09-2025 22:27:30 CDT by ALLEY NORTH [email or web address]
--- OUTSIDE RECORDS SUMMARY | 2025-09-07 16:58 | XMS_ITS | Encounter Summary ---
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
--- OUTSIDE RECORDS SUMMARY | 2025-09-07 16:58 | XMS_ITS | Encounter Summary ---
Author Organization [facility] Address [address] [place] [address] Care Team Providers Care Pantograph Engraver Name Role Phone Franky Starkey MD Primary Care Provider [phone] [phone] Encounter Details Date Type Department Care Team (Latest Contact Info) Description 12/04/2002 Outpatient Historical [facility] Medicine [place] [address] [address] Alfred Vera MD [address] [address] INFEC OTITIS EXTERNA NOS (Primary Dx); IMPACTED CERUMEN; SPEECH/LANGUAGE DIS NEC Social History Tobacco Use Types Packs/Day Years Used Date Smoking Tobacco: Never Assessed Sex and Gender Information Value Date Recorded Sex Assigned at Not on file 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
--- OUTSIDE RECORDS SUMMARY | 2025-09-07 16:58 | XMS_ITS | Encounter Summary ---
Author Organization [facility] Address [address] [place] [address] Care Team Providers Care Medical Lab Specialist Name Role Phone Franky Starkey MD Primary Care Provider [phone] Encounter Details Date Type Department Care Team (Latest Contact Info) Description 09/14/2006 Outpatient Historical [facility] Medicine [place] [address] [phone] Gi Perez, CROSS ENTERPRISE INTEGRATOR [address] [place] [phone] Acute Upper Respiratory Infections of Unspecified Site (Primary Dx) Social History Tobacco Use Types Packs/Day Years Used Date Smoking Tobacco: Never Assessed Sex and Gender Information Value Date Recorded Sex Assigned at Not on file 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
--- OUTSIDE RECORDS SUMMARY | 2025-09-07 16:58 | XMS_ITS | Encounter Summary ---
Author Organization [facility] Address [address] [place] [address] Care Team Providers Care Commercial Correspondent Name Role Phone Franky Starkey MD Primary Care Provider [phone] [phone] Encounter Details Date Type Department Care Team (Latest Contact Info) Description 12/07/2001 Outpatient Historical [facility]- [place] [address] [place] [address] Alfred Vera MD [address] [facility] [address] [place] [phone] OTITIS MEDIA NOS (Primary Dx); OTALGIA NOS; IMPACTED CERUMEN Social History Tobacco Use Types Packs/Day Years Used Date Smoking Tobacco: Never Assessed Sex and Gender Information Value Date Recorded Sex Assigned at Not on file 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
--- OUTSIDE RECORDS SUMMARY | 2025-09-07 16:58 | XMS_ITS | Encounter Summary ---
Author Organization [facility] Address [address] [place] [address] Care Team Providers Care Legal Director Name Role Phone Franky Starkey MD Primary Care Provider [phone] [phone] Encounter Details Date Type Department Care Team (Latest Contact Info) Description 12/27/2002 Outpatient Historical [facility] Medicine [place] [address] [phone] Alfred Vera MD [address] [address] ACUTE URI NOS (Primary Dx) Social History Tobacco Use Types Packs/Day Years Used Date Smoking Tobacco: Never Assessed Sex and Gender Information Value Date Recorded Sex Assigned at Not on file 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
--- OUTSIDE RECORDS SUMMARY | 2025-09-07 16:58 | XMS_ITS | Encounter Summary ---
Author Organization [facility] Address [address] [place] [address] Care Team Providers Care Net Making Supervisor Name Role Phone Franky Starkey MD Primary Care Provider +1 -[phone] Encounter Details Date Type Department Care Team (Latest Contact Info) Description 01/16/2005 Outpatient Historical [facility] Medicine [place] [address] [address] Shoshana Mills NP NO ADDRESS ON FILE Routine child health exam (Primary Dx) Social History Tobacco Use Types Packs/Day Years Used Date Smoking Tobacco: Never Assessed Sex and Gender Information Value Date Recorded Sex Assigned at Not on file 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
--- OUTSIDE RECORDS SUMMARY | 2025-09-07 16:58 | XMS_ITS | Encounter Summary ---
Author Organization [facility] Address [address] [place] [address] Care Team Providers Care Toll Mechanic Name Role Phone Franky Starkey MD Primary Care Provider +1 -[phone] Encounter Details Date Type Department Care Team (Latest Contact Info) Description 02/20/2002 Outpatient Historical [facility] Family Medicine- [address] [place] [address] Nevin Hinojosa MD NO ADDRESS ON FILE ACUTE PHARYNGITIS (Primary Dx) Social History Tobacco Use Types Packs/Day Years Used Date Smoking Tobacco: Never Assessed Sex and Gender Information Value Date Recorded Sex Assigned at Not on file Legal Sex Male 3:58 AM SENIOR COMPLIANCE OFFICER Gender Identity Not on file Sexual Orientation Not on file documented as of this encounter Plan of Treatment Not on file documented as of this encounter Visit Diagnoses Diagnosis Acute pharyngitis- Primary documented in this encounter Care Teams Toll Mechanic Relationship Specialty Start Date End Date Franky Starkey MD [address] [facility] [address] [place] [address] PCP - General Family Practice 03/03/17 09/07/17 documented as of this encounter
--- OUTSIDE RECORDS SUMMARY | 2025-09-07 16:58 | XMS_ITS | Encounter Summary ---
Author Organization [facility] Address [address]: [place] [address] Care Team Providers Care Voice Coach Name Role Phone Franky Starkey MD Primary Care Provider +1 -[phone] Encounter Details Date Type Department Care Team (Late st Contact Info) Description 02/21/2002 Outpatient Historical Nevin Hinojosa MD NO ADDRESS ON FILE Social History Tobacco Use Types Packs/Day Years Used Date Smoking Tobacco: Never Assessed Sex and Gender Information Value Date Recorded Sex Assigned at Not on file Legal Sex Male 3:58 AM MUMPS DEVELOPER Gender Identity Not on file Sexual Orientation Not on file documented as of this encounter Plan of Treatment Not on file documented as of this encounter Visit Diagnoses Not on filedocumented in this encounter Care Teams Voice Coach Relationship Specialty Start Date End Date Franky Starkey MD [address] [facility] [address] [place] [address] PCP - General Family Practice 03/03/17 09/07/17 documented as of this encounter
--- OUTSIDE RECORDS SUMMARY | 2025-09-07 16:58 | XMS_ITS | Encounter Summary ---
Author Organization [facility] Address [address] [place] [address] Care Team Providers Care Railroad Car Repair Supervisor Name Role Phone Franky Starkey MD Primary Care Provider +1 -[phone] Encounter Details Date Type Department Care Team (Latest Contact Info) Description 07/20/2006 Outpatient Historical [facility] Medicine [place] [address] [phone] Gi Perez, PERSONNEL TRAINING OFFICER [address] [place] [phone] Acute Upper Respiratory Infections of Unspecified Site (Primary Dx) Social History Tobacco Use Types Packs/Day Years Used Date Smoking Tobacco: Never Assessed Sex and Gender Information Value Date Recorded Sex Assigned at Not on file Legal Sex Male 3:58 AM DROP WORKER Gender Identity Not on file Sexual Orientation Not on file documented as of this encounter Plan of Treatment Not on file documented as of this encounter Visit Diagnoses Diagnosis Acute upper respiratory infections of unspecified site- Primary documented in this encounter Care Teams Railroad Car Repair Supervisor Relationship Specialty Start Date End Date Franky Starkey MD [address] [phone] PCP - General Family Practice 03/03/17 09/07/17 documented as of this encounter
--- OUTSIDE RECORDS SUMMARY | 2025-09-07 16:58 | XMS_ITS | Encounter Summary ---
Author Organization [facility] Address [address] [place] [address] Care Team Providers Care Coal Drier Operator Name Role Phone Franky Starkey MD Primary Care Provider +1 -[phone] Encounter Details Date Type Department Care Team (Latest Contact Info) Description 10/25/2001 Outpatient Historical [facility] Medicine [place] [address] [address] Car Suazo DO NO ADDRESS ON FILE ACUTE URI NOS (Primary Dx) Social History Tobacco Use Types Packs/Day Years Used Date Smoking Tobacco: Never Assessed Sex and Gender Information Value Date Recorded Sex Assigned at Not on file Legal Sex Male 3:58 AM WARP WORKER Gender Identity Not on file Sexual Orientation Not on file documented as of this encounter Plan of Treatment Not on file documented as of this encounter Visit Diagnoses Diagnosis Acute upper respiratory infections of unspecified site- Primary documented in this encounter Care Teams Coal Drier Operator Relationship Specialty Start Date End Date Franky Starkey MD [address] [phone] PCP - General Family Practice 03/03/17 09/07/17 documented as of this encounter
--- OUTSIDE RECORDS SUMMARY | 2025-09-07 16:58 | XMS_ITS | Encounter Summary ---
Author Organization [facility] Address [address] [place] [address] Care Team Providers Care Color Control Supervisor Name Role Phone Franky Starkey MD Primary Care Provider +1 -[phone] Encounter Details Date Type Department Care Team (Latest Contact Info) Description 03/12/2004 Outpatient Historical [facility] Medicine [place] [address] [address] Nevin Hinojosa MD NO ADDRESS ON FILE ACUTE PHARYNGITIS (Primary Dx); ACUTE BRONCHITIS Social History Tobacco Use Types Packs/Day Years Used Date Smoking Tobacco: Never Assessed Sex and Gender Information Value Date Recorded Sex Assigned at Not on file Legal Sex Male 3:58 AM INVENTORY AUDITOR Gender Identity Not on file Sexual Orientation Not on file documented as of this encounter Plan of Treatment Not on file documented as of this encounter Visit Diagnoses Diagnosis Acute pharyngitis- Primary Acute bronchitis documented in this encounter Care Teams Color Control Supervisor Relationship Specialty Start Date End Date Franky Starkey MD [address] [phone] PCP - General Family Practice 03/03/17 09/07/17 documented as of this encounter
--- OUTSIDE RECORDS SUMMARY | 2025-09-07 16:58 | XMS_ITS | Encounter Summary ---
Author Organization [facility] Address [address] [place] [address] Care Team Providers Care Utility Worker Film Processing Name Role Phone Franky Starkey MD Primary Care Provider +1 -[phone] Encounter Details Date Type Department Care Team (Latest Contact Info) Description 04/20/2001 Outpatient Historical [facility] Family Medicine- [place] [address] [place] [address] Car Suazo, NO ADDRESS ON FILE Unspecified otitis media (Primary Dx); Acute tonsillitis; Acute sinusitis, unspecified Social History Tobacco Use Types Packs/Day Years Used Date Smoking Tobacco: Never Assessed Sex and Gender Information Value Date Recorded Sex Assigned at Not on file Legal Sex Male 3:58 AM CRYPTOLOGIC TECHNICIAN OPERATOR/ANALYST Gender Identity Not on file Sexual Orientation Not on file documented as of this encounter Plan of Treatment Not on file documented as of this encounter Visit Diagnoses Diagnosis Unspecified otitis media- Primary Acute tonsillitis Acute sinusitis, unspecified documented in this encounter Care Teams Utility Worker Film Processing Relationship Specialty Start Date End Date Franky Starkey MD [address] [facility] [address] [place] [address] PCP - General Family Practice 03/03/17 09/07/17 documented as of this encounter
--- OUTSIDE RECORDS SUMMARY | 2025-09-07 16:58 | XMS_ITS | Encounter Summary ---
Author Organization [facility] Address [address] [place] [address] Care Team Providers Care Vice President Mission Integration Name Role Phone Franky Starkey MD Primary Care Provider +1 -[phone] Encounter Details Date Type Department Care Team (Latest Contact Info) Description 08/04/2007 Outpatient Historical [facility] Medicine [place] [address] [phone] Gi Perez, COIL SPRING ASSEMBLER [address] [place] [phone] Abdominal Pain, Unspecified Site (Primary Dx); Diarrhea Social History Tobacco Use Types Packs/Day Years Used Date Smoking Tobacco: Never Assessed Sex and Gender Information Value Date Recorded Sex Assigned at Not on file Legal Sex Male 3:58 AM LAB COURIER Gender Identity Not on file Sexual Orientation Not on file documented as of this encounter Plan of Treatment Not on file documented as of this encounter Visit Diagnoses Diagnosis Abdominal pain, unspecified site- Primary Diarrhea documented in this encounter Care Teams Vice President Mission Integration Relationship Specialty Start Date End Date Franky Starkey MD [address] [phone] PCP - General Family Practice 03/03/17 09/07/17 documented as of this encounter
--- OUTSIDE RECORDS SUMMARY | 2025-09-07 16:58 | XMS_ITS | Encounter Summary ---
Author Organization [facility] Address [address] [place] [address] Care Team Providers Care Pack Puller Name Role Phone Franky Starkey MD Primary Care Provider +1 -[phone] Encounter Details Date Type Department Care Team (Latest Contact Info) Description 10/01/2003 Outpatient Historical [facility] Family Medicine- [place] [address] [place] [address] Car Suazo, NO ADDRESS ON FILE PNEUMONIA, ORGANISM NOS (Primary Dx) Social History Tobacco Use Types Packs/Day Years Used Date Smoking Tobacco: Never Assessed Sex and Gender Information Value Date Recorded Sex Assigned at Not on file Legal Sex Male 3:58 AM SIGNAL INTELLIGENCE/ELECTRONIC WARFARE Gender Identity Not on file Sexual Orientation Not on file documented as of this encounter Plan of Treatment Not on file documented as of this encounter Visit Diagnoses Diagnosis Pneumonia, organism unspecified(486)- Primary Pneumonia, organism unspecified documented in this encounter Care Teams Pack Puller Relationship Specialty Start Date End Date Franky Starkey MD [address] [place] [phone] PCP - General Family Practice 03/03/17 09/07/17 documented as of this encounter
--- OUTSIDE RECORDS SUMMARY | 2025-09-07 16:58 | XMS_ITS | Encounter Summary ---
Author Organization [facility] Address [address] [place] [address] Care Team Providers Care Retort Load Expediter Name Role Phone Franky Starkey MD Primary Care Provider +1 -[phone] Encounter Details Date Type Department Care Team (Latest Contact Info) Description 12/22/2005 Outpatient Historical [facility] Medicine [place] [address] [phone] Gi Perez, AUTO CLUB TRAVEL COUNSELOR [address] [place] [phone] ACUTE URI NOS (Primary Dx); COUGH Social History Tobacco Use Types Packs/Day Years Used Date Smoking Tobacco: Never Assessed Sex and Gender Information Value Date Recorded Sex Assigned at Not on file Legal Sex Male 3:58 AM HEALTH PROFESSIONAL Gender Identity Not on file Sexual Orientation Not on file documented as of this encounter Plan of Treatment Not on file documented as of this encounter Visit Diagnoses Diagnosis Acute upper respiratory infections of unspecified site- Primary Cough documented in this encounter Care Teams Retort Load Expediter Relationship Specialty Start Date End Date Franky Starkey MD [address] [phone] PCP - General Family Practice 03/03/17 09/07/17 documented as of this encounter
--- OUTSIDE RECORDS SUMMARY | 2025-09-07 16:58 | XMS_ITS | Encounter Summary ---
Author Organization [facility] Address [address] [place] [address] Care Team Providers Care Supervisor [place] Name Role Phone Franky Starkey MD Primary Care Provider +1 -[phone] Encounter Details Date Type Department Care Team (Latest Contact Info) Description 01/30/2002 Outpatient Historical [facility] Medicine [place] [address] [phone] Alfred Vera MD [address] [phone] IMPACTED CERUMEN (Primary Dx) Social History Tobacco Use Types Packs/Day Years Used Date Smoking Tobacco: Never Assessed Sex and Gender Information Value Date Recorded Sex Assigned at Not on file Legal Sex Male 3:58 AM CAGE/VAULT SUPERVISOR Gender Identity Not on file Sexual Orientation Not on file documented as of this encounter Plan of Treatment Not on file documented as of this encounter Visit Diagnoses Diagnosis Impacted cerumen- Primary documented in this encounter Care Teams Supervisor [place] Relationship Specialty Start Date End Date Franky Starkey MD [address] [phone] PCP - General Family Practice 03/03/17 09/07/17 documented as of this encounter
--- OUTSIDE RECORDS SUMMARY | 2025-09-07 16:58 | XMS_ITS | Encounter Summary ---
Author Organization [facility] Address [address] [place] [address] Care Team Providers Care Hr Systems Analyst Name Role Phone Franky Starkey MD Primary Care Provider +1 -[phone] Encounter Details Date Type Department Care Team (Latest Contact Info) Description 12/09/2005 Outpatient Historical [facility] Medicine [place] [address] [address] Nevin Hinojosa MD NO ADDRESS ON FILE Dermatitis due to plant (Primary Dx) Social History Tobacco Use Types Packs/Day Years Used Date Smoking Tobacco: Never Assessed Sex and Gender Information Value Date Recorded Sex Assigned at Not on file Legal Sex Male 3:58 AM MECHANICAL MAINTENANCE ENGINEER Gender Identity Not on file Sexual Orientation Not on file documented as of this encounter Plan of Treatment Not on file documented as of this encounter Visit Diagnoses Diagnosis Dermatitis due to plant- Primary Contact dermatitis and other eczema due to plants (except food) documented in this encounter Care Teams Hr Systems Analyst Relationship Specialty Start Date End Date Franky Starkey MD [address] [phone] PCP - General Family Practice 03/03/17 09/07/17 documented as of this encounter
--- OUTSIDE RECORDS SUMMARY | 2025-09-07 16:58 | XMS_ITS | Encounter Summary ---
Author Organization [facility] Address [address] [place] [address] Care Team Providers Care Assembly Line Brazer Name Role Phone Franky Starkey MD Primary Care Provider +1 -[phone] Encounter Details Date Type Department Care Team (Latest Contact Info) Description 02/04/2005 Outpatient Historical [facility] Family Medicine- [place] [address] [place] [address] Shoshana Mills NP NO ADDRESS ON FILE ACUTE PHARYNGITIS (Primary Dx); ACUTE BRONCHITIS Social History Tobacco Use Types Packs/Day Years Used Date Smoking Tobacco: Never Assessed Sex and Gender Information Value Date Recorded Sex Assigned at Not on file Legal Sex Male 3:58 AM BURNING SUPERVISOR Gender Identity Not on file Sexual Orientation Not on file documented as of this encounter Plan of Treatment Not on file documented as of this encounter Visit Diagnoses Diagnosis Acute pharyngitis- Primary Acute bronchitis documented in this encounter Care Teams Assembly Line Brazer Relationship Specialty Start Date End Date Franky Starkey MD [address] [facility] [address] [place] [address] PCP - General Family Practice 03/03/17 09/07/17 documented as of this encounter
--- OUTSIDE RECORDS SUMMARY | 2025-09-07 16:58 | XMS_ITS | Encounter Summary ---
Author Organization [facility] Address [address] [place] [address] Care Team Providers Care Ship Laborer Name Role Phone Franky Starkey MD Primary Care Provider +1 -[phone] Encounter Details Date Type Department Care Team (Latest Contact Info) Description 03/09/2003 Outpatient Historical [facility] Medicine [place] [address] [phone] Nevin Hinojosa MD NO ADDRESS ON FILE DIARRHEA NOS (Primary Dx) Social History Tobacco Use Types Packs/Day Years Used Date Smoking Tobacco: Never Assessed Sex and Gender Information Value Date Recorded Sex Assigned at Not on file Legal Sex Male 3:58 AM MACHINE FILLER Gender Identity Not on file Sexual Orientation Not on file documented as of this encounter Plan of Treatment Not on file documented as of this encounter Visit Diagnoses Diagnosis Diarrhea- Primary documented in this encounter Care Teams Ship Laborer Relationship Specialty Start Date End Date Franky Starkey MD [address] [phone] PCP - General Family Practice 03/03/17 09/07/17 documented as of this encounter
--- OUTSIDE RECORDS SUMMARY | 2025-09-07 16:58 | XMS_ITS | Encounter Summary ---
Author Organization [facility] Address [address] [place] [address] Care Team Providers Care Beauty Parlor Cleaner Name Role Phone Franky Starkey MD Primary Care Provider +1 -[phone] Encounter Details Date Type Department Care Team (Latest Contact Info) Description 07/31/2002 Outpatient Historical [facility] Medicine [place] [address] [address] Alfred Vera MD [address] [address] OTITIS MEDIA NOS (Primary Dx); ACUTE BRONCHITIS; IMPACTED CERUMEN Social History Tobacco Use Types Packs/Day Years Used Date Smoking Tobacco: Never Assessed Sex and Gender Information Value Date Recorded Sex Assigned at Not on file Legal Sex Male 3:58 AM COMPLIANCE ENGINEER Gender Identity Not on file Sexual Orientation Not on file documented as of this encounter Plan of Treatment Not on file documented as of this encounter Visit Diagnoses Diagnosis Unspecified otitis media- Primary Acute bronchitis Impacted cerumen documented in this encounter Care Teams Beauty Parlor Cleaner Relationship Specialty Start Date End Date Franky Starkey MD [address] [phone] PCP - General Family Practice 03/03/17 09/07/17 documented as of this encounter
--- OUTSIDE RECORDS SUMMARY | 2025-09-07 16:58 | XMS_ITS | Clinical Summary ---
Author Organization [facility] Address [address] [place] [address] Care Team Providers Care Graffiti Cleaner Name Role Phone Unavailable Primary Care Provider [...] on file Legal Sex Male 3:58 AM CO DIRECTOR Gender Identity Not on file Sexual Orientation Not on file Occupation Industry Job Start Date Job End Date Not on file Not on file Not on file Not on file Last Filed Vital Signs Vital Sign Reading Time Taken Comments Blood Pressure 151/78 09/15/2020 4:10 PM CO DIRECTOR Pulse 94 05/16/2020 3:44 PM CDT Temperature 36.7 C (98 F) 09/15/2020 4:10 PM CO DIRECTOR Respiratory Rate 18 09/15/2020 3:30 PM CO DIRECTOR Oxygen Saturation 100% 09/15/2020 4:10 PM CO DIRECTOR Inhaled Oxygen Concentration - - Weight 81.5 kg (179 lb 9.6 oz) 09/15/2020 3:30 P M CO DIRECTOR Height 182.9 cm (6') 09/15/2020 3:30 PM CO DIRECTOR Body Mass Index 24.36 09/15/2020 3:30 PM CO DIRECTOR Plan of Treatment Health Maintenance Due Date [...] Not Detected 05/17/2020 7:06 PM CDT [facility] GC DNA AMPLIFICATION NOT DETECTED Not Detected 05/17/2020 7:06 PM CDT [facility] Urine URINE SPECIMEN / Unknown Collection / Unknown 05/16/2020 4:14 PM CDT 05/16/2020 4:40 PM CDT Narrative [facility] - 05/17/2020 7:06 PM CDT Results should not be used for the evaluation of suspected sexual abuse or for other medico-legal indications. The only legally accepted results are from culture. Results cannot be used to assess therapeutic success or failure since nucleic acids may persist following antimicrobial therapy. Raciel Avelar DO URINE ORDERABLES COM Final Re sult [facility]# [id number] [address] [place] [address] from Last 3 Months or Most Recently Relevant to Health Maintenance Insurance [employer] * Guarantor: NATANAEL WHITTAKER Account Type Relation to Patient Date of Phone Billing Address Third Alliance Party Liability Other
--- OUTSIDE RECORDS SUMMARY | 2025-09-07 16:58 | XMS_ITS | Encounter Summary ---
Author Organization [facility] Address [address] [place] [address] Care Team Providers Care Dispute Coordinator Name Role Phone Franky Starkey MD Primary Care Provider +1 -[phone] Encounter Details Date Type Department Care Team (Latest Contact Info) Description 09/25/2003 Outpatient Historical [facility] Medicine [place] [address] [address] Car Suazo DO NO ADDRESS ON FILE ACUTE BRONCHITIS (Primary Dx); ASTHMA UNSPECIFIED; HYPOVOLEMIA Social History Tobacco Use Types Packs/Day Years Used Date Smoking Tobacco: Never Assessed Sex and Gender Information Value Date Recorded Sex Assigned at Not on file Legal Sex Male 3:58 AM RAND BUTTER Gender Identity Not on file Sexual Orientation Not on file documented as of this encounter Plan of Treatment Not on file documented as of this encounter Visit Diagnoses Diagnosis Acute bronchitis- Primary Unspecified asthma(493.90) Unspecified asthma Volume depletion documented in this encounter Care Teams Dispute Coordinator Relationship Specialty Start Date End Date Franky Starkey MD [address] [phone] PCP - General Family Practice 03/03/17 09/07/17 documented as of this encounter
--- OUTSIDE RECORDS SUMMARY | 2025-09-07 16:58 | XMS_ITS | Encounter Summary ---
Author Organization [facility] Address [address] [place] [address] Care Team Providers Care Urban And Regional Planner Name Role Phone Franky Starkey MD Primary Care Provider +1 -[phone] Encounter Details Date Type Department Care Team (Latest Contact Info) Description 04/22/2006 Outpatient Historical [facility] Medicine [place] [address] [address] Nevin Hinojosa MD NO ADDRESS ON FILE Dermatitis due to Plant (Primary Dx) Social History Tobacco Use Types Packs/Day Years Used Date Smoking Tobacco: Never Assessed Sex and Gender Information Value Date Recorded Sex Assigned at Not on file Legal Sex Male 3:58 AM VENTILATION MECHANIC Gender Identity Not on file Sexual Orientation Not on file documented as of this encounter Plan of Treatment Not on file documented as of this encounter Visit Diagnoses Diagnosis Dermatitis due to plant- Primary Contact dermatitis and other eczema due to plants (except food) documented in this encounter Care Teams Urban And Regional Planner Relationship Specialty Start Date End Date Franky Starkey MD [address] [phone] PCP - General Family Practice 03/03/17 09/07/17 documented as of this encounter
--- OUTSIDE RECORDS SUMMARY | 2025-09-07 16:58 | XMS_ITS | Encounter Summary ---
Author Organization [facility] Address [address] [place] [address] Care Team Providers Care Grinding Wheel Operator Name Role Phone Franky Starkey MD Primary Care Provider [phone] Encounter Details Date Type Department Care Team (Latest Contact Info) Description 08/22/2001 Outpatient Historical [facility] Medicine [place] [address] [phone] Alfred Vera MD [address] [phone] Unspecified otitis media (Primary Dx) Social History Tobacco Use Types Packs/Day Years Used Date Smoking Tobacco: Never Assessed Sex and Gender Information Value Date Recorded Sex Assigned at Not on file Legal Sex Male 3:58 AM ACCOUNTING TECHNICIAN Gender Identity Not on file Sexual Orientation Not on file documented as of this encounter Plan of Treatment Not on file documented as of this encounter Visit Diagnoses Diagnosis Unspecified otitis media- Primary documented in this encounter Care Teams Grinding Wheel Operator Relationship Specialty Start Date End Date Franky Starkey MD [address] [phone] PCP - General Family Practice 03/03/17 09/07/17 documented as of this encounter
--- OUTSIDE RECORDS SUMMARY | 2025-09-07 16:58 | XMS_ITS | Encounter Summary ---
Author Organization [facility] Address [address] [place] [address] Care Team Providers Care Wastewater Treatment Supervisor Name Role Phone Franky Starkey MD Primary Care Provider [phone] Encounter Details Date Type Department Care Team (Latest Contact Info) Description 12/06/2006 Outpatient Historical [facility] Medicine [place] [address] [phone] Shoshana Mills NP NO ADDRESS ON FILE Acute Pharyngitis (Primary Dx); Cough Social History Tobacco Use Types Packs/Day Years Used Date Smoking Tobacco: Never Assessed Sex and Gender Information Value Date Recorded Sex Assigned at Not on file Legal Sex Male 3:58 AM ENAMEL BURNER Gender Identity Not on file Sexual Orientation Not on file documented as of this encounter Plan of Treatment Not on file documented as of this encounter Visit Diagnoses Diagnosis Acute pharyngitis- Primary Cough documented in this encounter Care Teams Wastewater Treatment Supervisor Relationship Specialty Start Date End Date Franky Starkey MD [address] [phone] PCP - General Family Practice 03/03/17 09/07/17 documented as of this encounter
--- OUTSIDE RECORDS SUMMARY | 2025-09-07 16:58 | XMS_ITS | Encounter Summary ---
Author Organization [facility] Address [address] [place] [address] Care Team Providers Care Ground Water Pump Installer Name Role Phone Franky Starkey MD Primary Care Provider [phone] Encounter Details Date Type Department Care Team (Latest Contact Info) Description 10/29/2003 Outpatient Historical [facility] Medicine [place] [address] [phone] Car Suazo DO NO ADDRESS ON FILE ACUTE BRONCHITIS (Primary Dx) Social History Tobacco Use Types Packs/Day Years Used Date Smoking Tobacco: Never Assessed Sex and Gender Information Value Date Recorded Sex Assigned at Not on file 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
--- OUTSIDE RECORDS SUMMARY | 2025-09-07 16:58 | XMS_ITS | Encounter Summary ---
Author Organization [facility] Address [address] [place] [address] Care Team Providers Care Battery Plate Assembler Name Role Phone Franky Starkey MD Primary Care Provider [phone] [phone] Encounter Details Date Type Department Care Team (Latest Contact Info) Description 08/08/[address] 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
--- OUTSIDE RECORDS SUMMARY | 2025-09-07 16:58 | XMS_ITS | Encounter Summary ---
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
--- OUTSIDE RECORDS SUMMARY | 2025-09-07 16:58 | XMS_ITS | Encounter Summary ---
Author Organization [facility] Address [address] [place] [address] Care Team Providers Care Bath Tester Name Role Phone Franky Starkey MD Primary Care Provider [phone] Encounter Details Date Type Department Care Team (Latest Contact Info) Description 01/01/2005 Outpatient Historical [facility] Medicine [place] [address] [phone] Nevin Hinojosa MD NO ADDRESS ON FILE ACUTE URI NOS (Primary Dx) Social History Tobacco Use Types Packs/Day Years Used Date Smoking Tobacco: Never Assessed Sex and Gender Information Value Date Recorded Sex Assigned at Not on file 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
--- OUTSIDE RECORDS SUMMARY | 2025-09-07 16:58 | XMS_ITS | Encounter Summary ---
Author Organization [facility] Address [address] [place] [address] Care Team Providers Care Commercial Production Editor Name Role Phone Franky Starkey MD Primary Care Provider [phone] Encounter Details Date Type Department Care Team (Latest Contact Info) Description 12/22/2001 Outpatient Historical [facility] Medicine [place] [address] [phone] Nevin Hinojosa MD NO ADDRESS ON FILE OTITIS MEDIA NOS (Primary Dx); INFEC OTITIS EXTERNA NOS Social History Tobacco Use Types Packs/Day Years Used Date Smoking Tobacco: Never Assessed Sex and Gender Information Value Date Recorded Sex Assigned at Not on file 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
--- NOTE | 2025-09-07 17:11 | W.ED.OVERDOS ---
Documented by User: ACACIA Fink 09/10/25 12:54 HPI - Overdose General: Chief Complaint: Overdose Stated Complaint: intentional overdose Time Seen by Provider: 09/07/25 16:55 Source: patient Mode of arrival: EMS Limitations: no limitations History of Present Illness: Patient is a 25-year-old male who presents to ED today via EMS after an intentional overdose. Patient states he intentionally took 24 tablets of 400 mg gabapentin in a suicide attempt. Ingestion was roughly around 3pm. Upon arrival he is somewhat somnolent but alert and oriented. MD complaint: intentional overdose Onset (ago): hour(s) Time: 15:00 Intent: suicide attempt Associated symptoms: depression Treatments Prior to Arrival: none Related Data Home Medications ?Medication ?Instructions ?Recorded ?Confirmed benztropine 2 mg tablet 2 mg PO Q8H PRN dystonia 09/08/25 09/08/25 bupropion HCl 150 mg tablet,12 hr 150 mg PO TID 09/08/25 09/08/25 sustained-release gabapentin 400 mg capsule 400 mg PO TID 09/08/25 09/08/25 risperidone 2 mg tablet 2 mg PO TID 09/08/25 09/08/25 trazodone 150 mg tablet 150 mg PO BEDTIME 09/08/25 09/08/25 Allergies Allergy/AdvReac Type Severity Reaction Status Date / Time No Known Allergies Allergy Verified 07/25/25 18:27 Review of Systems Eyes: Denies: change in vision, blurry vision, photophobia, floaters or seeing flashes Card: Denies: chest pain, palpitations, irregular heart rhythm, lightheadedness or syncope Resp: Denies: dyspnea GI: Denies: abdominal pain, nausea, vomiting or diarrhea Neuro: Denies: headache(s), numbness in extremities, weakness in extremities, sensory changes, difficulty walking, confusion, difficulty communicating thoughts or seizure-like activity Physical Exam Const: COMMON NORMALS: average body habitus, patient oriented x3, healthy appearing, alert and well nourished GENERAL APPEARANCE: cooperative ORIENTATION/CONSCIOUSNESS: Yes awake, Yes oriented to person, Yes oriented to place and Yes oriented to time OTHER: somnolent/drowsy-he does awaken easily, was able to change his close in his room, answers all questions appropriately HENMT: COMMON NORMALS: normocephalic and atraumatic HEAD & SCALP: normal to inspection, normocephalic and atraumatic FACE & SINUS: normal facial exam Eye: GENERAL EYE: appearance normal, both eyes and all related structures and normal light reflex DIRECT OPHTHALMOSCOPY: Yes normal light reflex OTHER: mild ocular clonus Resp: COMMON NORMALS: normal respiratory effort and clear to auscultation bilaterally AUSCULTATION: clear to auscultation bilaterally Cardio: COMMON NORMALS: regular rate and regular rhythm RATE: regular rate RHYTHM: regular rhythm Extremity: GENERAL: Yes normal exam except as noted Neuro: ANASTACIA COMA SCALE: document GCS findings [place] coma scale eye opening: Spontaneous [place] coma scale verbal response: Orientated [place] coma scale motor response: Obey commands [place] coma scale total score: 15 COMMON NORMALS: patient oriented x3, CN's II-XII intact bilaterally, moves all extremities, no focal motor deficits, no sensory deficits noted and gait normal SENSORIUM/ORIENTATION: Yes alert, Yes oriented to person, Yes oriented to place and Yes oriented to time Psych: COMMON NORMALS: speech normal APPEARANCE: Yes grossly normal ATTITUDE: Yes calm ACTIVITY/MOTOR BEHAVIOR: Yes appropriate eye contact SPEECH: Yes normal speech THOUGHT CONTENT: Yes Suicidality present INSIGHT: Fair insight present (Psych) JUDGEMENT: Fair judgement present (Psych) Course Consultations: Consultation #1: Dr. Luis-will consult on patient while in hospital or at NPU once he is cleared medically and transferred there Consultation #2: Dr. Cline-accepts admission to ICU Vital Signs: Vital signs: Vital Signs Temperature 98.6 F 09/10/25 06:00 Pulse Rate 90 09/10/25 06:00 Respiratory Rate 18 09/10/25 06:00 Blood Pressure 108/71 09/10/25 06:00 Pulse Oximetry 98 09/10/25 06:00 Oxygen Delivery Me thod Room Air 09/10/25 06:00 MDM - Overdose Medical Decision Making Patient is a 25-year-old male who took 24 tablets of 400 mg gabapentin approximately 3 hours ago and an intentional suicide attempt. He arrives drowsy but is able to answer questioning. His vital signs are stable. Did speak to poison control. Peak of this medication is anywhere from 1 to 5 hours. Half-life is anywhere from 5 to 7 hours. 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 I spoke to hospitalist and we will admit to ICU overnight with plan to discharge to NPU tomorrow once medically cleared. He was placed on a 96-hour hold. We will have psych consult on him while in the hospital. Dr. Martinez aware of plan and agrees and will place admit orders. Dr. Cid was also consulted with when patient first arrived to ED and agreed with plan for labs, fluids, conservative management, poison control consult, etc. Differential Diagnosis Likely drug overdose Medical Records I reviewed the patient's medical records. Lab Data I reviewed the patient's lab results. 09/08/25 04:18 09/08/25 04:18 Laboratory Results WBC 7.57 10^3/uL (3.29-11.43) 09/08/25 04:18 RBC 5.09 10^6/uL (3.85-5.65) 09/08/25 04:18 Hgb 16.30 g/dL (11.27-16.99) 09/08/25 04:18 Hct 47.1 % (37-53) 09/08/25 04:18 MCV 92.5 fl (82-101) 09/08/25 04:18 MCH 32.0 pg (27-33) 09/08/25 04:18 MCHC 34.6 g/dL (30-55) 09/08/25 04:18 RDW 12.2 % (12.1-15.1) 09/08/25 04:18 Plt Count 315 10^3/cmm (157-399) 09/08/25 04:18 MPV 8.5 fL (7.4-10.4) 09/08/25 04:18 Neut % (Auto) 57.2 % 09/08/25 04:18 Lymph % (Auto) 24.0 % 09/08/25 04:18 Oxford % (Auto) 14.1 % 09/08/25 04:18 Eos % (Auto) 3.6 % 09/08/25 04:18 Baso % (Auto) 0.8 % 09/08/25 04:18 Neut # (Auto) 4.33 10^3/uL (1.8-7.7) 09/08/25 04:18 Lymph # (Auto) 1.8 10^3/uL (0.8-4.8) 09/08/25 04:18 Oxford # (Auto) 1.1 10^3/uL (0.2-0.9) H 09/08/25 04:18 Eos # (Auto) 0.3 10^3/uL (0.0-0.8) 09/08/25 04:18 Baso # (Auto) 0.1 10^3/uL (0.0-0.1) 09/08/25 04:18 Nucleated RBC % (auto) 0 % 09/08/25 04:18 Nucleated RBCs # 0.0 /100WBC 09/08/25 04:18 Specimen Type Arterial 09/07/25 18:32 Sample Site Radial, right 09/07/25 18:32 ABG pH 7.44 (7.35-7.45) 09/07/25 18:32 ABG pCO2 38.5 mmHg (35-45) 09/07/25 18:32 ABG pO2 96.1 mmHg (80.0-100.0) 09/07/25 18:32 ABG PO2/FiO2 Ratio 457 09/07/25 18:32 ABG HCO3 26.0 mmol/L (22-26) 09/07/25 18:32 ABG O2 Saturation 98.3 09/07/25 18:32 ABG Base Excess 1.8 mmol/L (-2.0-2.0) 09/07/25 18:32 Iggy Test Pos 09/07/25 18:32 A-a O2 Gradient 0.7 mmHg (5-10) L 09/07/25 18:32 Hematocrit 51.5 % (42-52) 09/07/25 18:32 Hgb O2 Saturation 91.2 % (95-100) L 09/07/25 18:32 Carboxyhemoglobin 6.2 %THgb (0.4-20.1) 09/07/25 18:32 Methemoglobin 1.0 % (0.4-1.5) 09/07/25 18:32 Total Hemoglobin 16.8 g/dL (14-18) 09/07/25 18:32 Sodium 139.0 mmol/L (131-143) 09/07/25 18:32 Potassium 3.6 mmol/L (3.5-5.0) 09/07/25 18:32 Glucose 96.0 mg/dL (70-115) 09/07/25 18:32 Ionized Calcium 1.2 mmol/L (1.1-1.4) 09/07/25 18:32 O2 Delivery Device Room air 09/07/25 18:32 FiO2 21.0 % 09/07/25 18:32 Screen Stretcher ID glc 09/07/25 18:32 Sodium 140 mmol/L (136-145) 09/08/25 04:18 Potassium 4.0 mmol/L (3.5-5.1) 09/08/25 04:18 Chloride 104 mmol/L (98-107) 09/08/25 04:18 Carbon Dioxide 24 mmol/L (22-29) 09/08/25 04:18 Anion Gap 16.0 (5-19) 09/08/25 04:18 BUN 16 mg/dL (6-20) 09/08/25 04:18 Creatinine 0.9 mg/dL (0.7-1.2) 09/08/25 04:18 GFR Calculation 102.0 mL/min (90-130) 09/08/25 04:18 Glucose 82 mg/dL (65-115) 09/08/25 04:18 Calculated Osmolality 290 mOsm/kg (285-295) 09/08/25 04:18 Lactic Acid 1.2 mmol/L (0.5-2.2) 09/07/25 17:33 Calcium 8.8 mg/dL (8.5-10.5) 09/08/25 04:18 Phosphorus 4.1 mg/dL (2.5-4.5) 09/08/25 04:18 Magnesium 2.2 mg/dL (1.7-2.3) 09/08/25 04:18 Total Bilirubin 1.0 mg/dL (0.15-1.2) 09/08/25 04:18 AST 13 U/L (0-40) 09/08/25 04:18 ALT 15 U/L (0-41) 09/08/25 04:18 Alkaline Phosphatase 61 U/L (40-130) 09/08/25 04:18 Creatine Kinase 83 U/L (39-308) 09/07/25 17:33 Total Protein 6.5 g/dL (6.6-8.7) L 09/08/25 04:18 Albumin 4.3 g/dL (3.5-5.2) 09/08/25 04:18 Globulin 2.2 g/dL (1.3-4.6) 09/08/25 04:18 Salicylates < 0.3 mg/dL (3-10) L 09/07/25 17:33 Urine Opiates Screen Negative ng/mL (Negative) 09/07/25 19:14 Acetaminophen < 5.0 ug/mL (10-30) L 09/07/25 17:33 Ur Barbiturates Screen Negative ng/mL (Negative) 09/07/25 19:14 Ur Phencyclidine Scrn Negative ng/mL (Negative) 09/07/25 19:14 Ur Amphetamines Screen Positive ng/mL (Negative) H 09/07/25 19:14 U Benzodiazepines Scrn Negative ng/mL (Negative) 09/07/25 19:14 Urine Cocaine Screen Negative ng/mL (Negative) 09/07/25 19:14 U Marijuana (THC) Screen Positive ng/mL (Negative) H 09/07/25 19:14 Ethyl Alcohol < 10 mg/dL (0-10) 09/07/25 17:33 No radiology studies performed this visit Discharge Plan Discharge Patient Disposition: Admitted As Inpatient Admit Provider: Mona Cline Clinical Impression: Intentional overdose of gabapentin, Suicide attempt, Involuntary commitment Condition: Stable Coding Level of Care Code ED Strategy Associate for Chg Fwd Documented by User: Anton Martinez DO 09/08/25 03:06 HPI - Overdose General: Chief Complaint: Overdose Stated Complaint: intentional overdose Time Seen by Provider: 09/07/25 16:55 Related Data Home Medications ?Medication ?Instructions ?Recorded ?Confirmed benztropine 2 mg tablet 2 mg PO Q8H PRN dystonia 09/08/25 09/08/25 bupropion HCl 150 mg tablet,12 hr 150 mg PO TID 09/08/25 09/08/25 sustained-release gabapentin 400 mg capsule 400 mg PO TID 09/08/25 09/08/25 risperidone 2 mg tablet 2 mg PO TID 09/08/25 09/08/25 trazodone 150 mg tablet 150 mg PO BEDTIME 09/08/25 09/08/25 Allergies Allergy/AdvReac Type Severity Reaction Status Date / Time No Known Allergies Allergy Verified 07/25/25 18:27 Physical Exam Neuro: ANASTACIA COMA SCALE: document GCS findings [place] coma scale total score: 15 Course Vital Signs: Vital signs: Vital Signs Temperature 98.6 F 09/10/25 06:00 Pulse Rate 90 09/10/25 06:00 Respiratory Rate 18 09/10/25 06:00 Blood Pressure 108/71 09/10/25 06:00 Pulse Oximetry 98 09/10/25 06:00 Oxygen Delivery Me thod Room Air 09/10/25 06:00 MDM - Overdose Medical Decision Making Patient is a 25-year-old male who took 24 tablets of 400 mg gabapentin approximately 3 hours ago and an intentional suicide attempt. He arrives drowsy but is able to answer questioning. His vital signs are stable. Did speak to poison control. Peak of this medication is anywhere from 1 to 5 hours. Half-life is anywhere from 5 to 7 hours. 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 I spoke to hospitalist and we will admit to ICU overnight with plan to discharge to NPU tomorrow once medically cleared. He was placed on a 96-hour hold. We will have psych consult on him while in the hospital. Dr. Martinez aware of plan and agrees and will place admit orders. Dr. Cid was also consulted with when patient first arrived to ED and agreed with plan for labs, fluids, conservative management, poison control consult, etc. This patient was originally seen by Mrs. Peg PA-C. I agree with her history, evaluation, and management. Lab Data 09/08/25 04:18 09/08/25 04:18 Laboratory Results WBC 7.57 10^3/uL (3.29-11.43) 09/08/25 04:18 RBC 5.09 10^6/uL (3.85-5.65) 09/08/25 04:18 Hgb 16.30 g/dL (11.27-16.99) 09/08/25 04:18 Hct 47.1 % (37-53) 09/08/25 04:18 MCV 92.5 fl (82-101) 09/08/25 04:18 MCH 32.0 pg (27-33) 09/08/25 04:18 MCHC 34.6 g/dL (30-55) 09/08/25 04:18 RDW 12.2 % (12.1-15.1) 09/08/25 04:18 Plt Count 315 10^3/cmm (157-399) 09/08/25 04:18 MPV 8.5 fL (7.4-10.4) 09/08/25 04:18 Neut % (Auto) 57.2 % 09/08/25 04:18 Lymph % (Auto) 24.0 % 09/08/25 04:18 Oxford % (Auto) 14.1 % 09/08/25 04:18 Eos % (Auto) 3.6 % 09/08/25 04:18 Baso % (Auto) 0.8 % 09/08/25 04:18 Neut # (Auto) 4.33 10^3/uL (1.8-7.7) 09/08/25 04:18 Lymph # (Auto) 1.8 10^3/uL (0.8-4.8) 09/08/25 04:18 Oxford # (Auto) 1.1 10^3/uL (0.2-0.9) H 09/08/25 04:18 Eos # (Auto) 0.3 10^3/uL (0.0-0.8) 09/08/25 04:18 Baso # (Auto) 0.1 10^3/uL (0.0-0.1) 09/08/25 04:18 Nucleated RBC % (auto) 0 % 09/08/25 04:18 Nucleated RBCs # 0.0 /100WBC 09/08/25 04:18 Specimen Type Arterial 09/07/25 18:32 Sample Site Radial, right 09/07/25 18:32 ABG pH 7.44 (7.35-7.45) 09/07/25 18:32 ABG pCO2 38.5 mmHg (35-45) 09/07/25 18:32 ABG pO2 96.1 mmHg (80.0-100.0) 09/07/25 18:32 ABG PO2/FiO2 Ratio 457 09/07/25 18:32 ABG HCO3 26.0 mmol/L (22-26) 09/07/25 18:32 ABG O2 Saturation 98.3 09/07/25 18:32 ABG Base Excess 1.8 mmol/L (-2.0-2.0) 09/07/25 18:32 Iggy Test Pos 09/07/25 18:32 A-a O2 Gradient 0.7 mmHg (5-10) L 09/07/25 18:32 Hematocrit 51.5 % (42-52) 09/07/25 18:32 Hgb O2 Saturation 91.2 % (95-100) L 09/07/25 18:32 Carboxyhemoglobin 6.2 %THgb (0.4-20.1) 09/07/25 18:32 Methemoglobin 1.0 % (0.4-1.5) 09/07/25 18:32 Total Hemoglobin 16.8 g/dL (14-18) 09/07/25 18:32 Sodium 139.0 mmol/L (131-143) 09/07/25 18:32 Potassium 3.6 mmol/L (3.5-5.0) 09/07/25 18:32 Glucose 96.0 mg/dL (70-115) 09/07/25 18:32 Ionized Calcium 1.2 mmol/L (1.1-1.4) 09/07/25 18:32 O2 Delivery Device Room air 09/07/25 18:32 FiO2 21.0 % 09/07/25 18:32 Screen Stretcher ID glc 09/07/25 18:32 Sodium 140 mmol/L (136-145) 09/08/25 04:18 Potassium 4.0 mmol/L (3.5-5.1) 09/08/25 04:18 Chloride 104 mmol/L (98-107) 09/08/25 04:18 Carbon Dioxide 24 mmol/L (22-29) 09/08/25 04:18 Anion Gap 16.0 (5-19) 09/08/25 04:18 BUN 16 mg/dL (6-20) 09/08/25 04:18 Creatinine 0.9 mg/dL (0.7-1.2) 09/08/25 04:18 GFR Calculation 102.0 mL/min (90-130) 09/08/25 04:18 Glucose 82 mg/dL (65-115) 09/08/25 04:18 Calculated Osmolality 290 mOsm/kg (285-295) 09/08/25 04:18 Lactic Acid 1.2 mmol/L (0.5-2.2) 09/07/25 17:33 Calcium 8.8 mg/dL (8.5-10.5) 09/08/25 04:18 Phosphorus 4.1 mg/dL (2.5-4.5) 09/08/25 04:18 Magnesium 2.2 mg/dL (1.7-2.3) 09/08/25 04:18 Total Bilirubin 1.0 mg/dL (0.15-1.2) 09/08/25 04:18 AST 13 U/L (0-40) 09/08/25 04:18 ALT 15 U/L (0-41) 09/08/25 04:18 Alkaline Phosphatase 61 U/L (40-130) 09/08/25 04:18 Creatine Kinase 83 U/L (39-308) 09/07/25 17:33 Total Protein 6.5 g/dL (6.6-8.7) L 09/08/25 04:18 Albumin 4.3 g/dL (3.5-5.2) 09/08/25 04:18 Globulin 2.2 g/dL (1.3-4.6) 09/08/25 04:18 Salicylates < 0.3 mg/dL (3-10) L 09/07/25 17:33 Urine Opiates Screen Negative ng/mL (Negative) 09/07/25 19:14 Acetaminophen < 5.0 ug/mL (10-30) L 09/07/25 17:33 Ur Barbiturates Screen Negative ng/mL (Negative) 09/07/25 19:14 Ur Phencyclidine Scrn Negative ng/mL (Negative) 09/07/25 19:14 Ur Amphetamines Screen Positive ng/mL (Negative) H 09/07/25 19:14 U Benzodiazepines Scrn Negative ng/mL (Negative) 09/07/25 19:14 Urine Cocaine Screen Negative ng/mL (Negative) 09/07/25 19:14 U Marijuana (THC) Screen Positive ng/mL (Negative) H 09/07/25 19:14 Ethyl Alcohol < 10 mg/dL (0-10) 09/07/25 17:33 Discharge Plan Discharge Patient Disposition: Admitted As Inpatient Admit Provider: Mona Cline Clinical Impression: Intentional overdose of gabapentin, Suicide attempt, Involuntary commitment Condition: Stable Coding Level of Care Code ED Strategy Associate for Ari Beckman
--- NOTE | 2025-09-07 17:38 | PC.NURSE ---
pt was read his 96 hour hold rights at this time. Security present
[2025-09-07 17:44] LABS: Hematocrit 47.5 % (37-53); Hemoglobin 16.80 g/dL (11.27-16.99); Mean Corpuscular HGB Conc 35.4 g/dL (30-55); Mean Corpuscular Hemoglobin 32.1 pg (27-33); Mean Corpuscular Volume 90.8 fl (82-101); Nucleated Red Blood Cells % 0 %; Platelet Count 365 10^3/cmm (157-399); Red Blood Count 5.23 10^6/uL (3.85-5.65); White Blood Count 10.63 10^3/uL (3.29-11.43)
[2025-09-07 18:07] LABS: Alanine Aminotransferase 20 U/L (0-41); Albumin Level 5.0 g/dL (3.5-5.2); Alkaline Phosphatase 71 U/L (40-130); Anion Gap 18.6 (5-19); Aspartate Amino Transferase 16 U/L (0-40); Blood Urea Nitrogen 16 mg/dL (6-20); Calcium 9.8 mg/dL (8.5-10.5); Carbon Dioxide 23 mmol/L (22-29); Chloride 100 mmol/L (98-107); Creatinine Clr Calc Pharmacy 165.0459; Globulin 2.7 g/dL (1.3-4.6); Glucose 99 mg/dL (65-115); Osmolality Calculated 287 mOsm/kg (285-295); Potassium 3.6 mmol/L (3.5-5.1); Sodium 138 mmol/L (136-145); Total Protein 7.7 g/dL (6.6-8.7)
[2025-09-07 18:08] LABS: Acetaminophen < 5.0 ug/mL (10-30); Alcohol Level < 10 mg/dL (0-10); Salicylate < 0.3 mg/dL (3-10)
[2025-09-07 18:41] LABS: Lactic Sepsis W/Reflex 1.2 mmol/L (0.5-2.2)
[2025-09-07 18:44] LABS: ABG PCO2 38.5 mmHg (35-45); ABG PH Result 7.44 (7.35-7.45); Alveolar-Arterial Oxygen Gradi 0.7 mmHg (5-10); Arterial Blood Gas Hematocrit 51.5 % (42-52); Blood Gas Allen Test Pos; Blood Gas Operator Identificat glc; Blood Gas Sample Site Radial, right; Blood Gas Sample Type Arterial; Carboxyhemoglobin 6.2 %THgb (0.4-20.1); Glucose Level-ABG 96.0 mg/dL (70-115); HCO3 ABG 26.0 mmol/L (22-26); Ionized Calcium Level - ABG 1.2 mmol/L (1.1-1.4); Methemoglobin 1.0 % (0.4-1.5); Oxygen Saturation ABG 98.3; PO2 ABG 96.1 mmHg (80.0-100.0); PO2 FiO2 Ratio Arterial Blood 457; Potassium Level - ABG 3.6 mmol/L (3.5-5.0); Sodium Level - ABG 139.0 mmol/L (131-143)
[2025-09-07 19:32] LABS: PCP Screen Urine Negative (Negative)
--- NOTE | 2025-09-07 19:49 | PM.HP ---
Providers/Chief Complaint Admitting Physician: LATOYA RODRIGUEZ DO--- admitted before 12 midnight Primary Care Provider: Sanjay Freedman Chief Complaint: intentional overdose History of Present Illness Kalia Dillard is a 25 year old male with no medical history significant for psychiatric illness, no history of intentional overdose to commit suicide but this happened this time when the patient had taken 10,000 mg total of gabapentin from some other source for an intention of killing himself. Why did the patient do this? Patient said that the girlfriend cheated on him. He was so devastated that he wanted to take his own life. It was reported that this medication we are taking 3 PM on this day of presentation. Poison control had it half-life of gabapentin is 5 hours. This patient was signed over to Dr. Florez who could not get to the patient into the change of shift and the patient was signed over to me. I have gone to the ED room 7 seeing the patient he was able to talk to me but very very sleepy Patient lives with a father and his mother 10 to 15 years ago he said. Patient is 25 currently and at that time patient was only a teenager. I have at this time consulted psychiatric bethea with psychiatrist for optimization of care of this patient psychiatric decompensation. Patient has no significant medical problem does not have history of high blood pressure hypercholesterolemia no diabetes will have the patient clear of the drug in the system and once fully awake patient should be able to go to psych bethea. 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 Medications/Allergies Allergies Allergy/AdvReac Type Severity Reaction Status Date / Time No Known Allergies Allergy Verified 07/25/25 18:27 Vitals/I&O/Wt Last Vital Signs Temp 97.5 F L 09/07/25 18:04 Pulse 89 09/07/25 19:15 Resp 16 09/07/25 19:15 BP 165/96 09/07/25 19:15 Pulse Ox 98 09/07/25 19:15 O2 Del Method Room Air 09/07/25 19:15 Weight last 48 hrs Weight 92.079 kg Physical Exam Narrative: Generally patient is very sleepy but nice and calm, on agitated HEENT normocephalic atraumatic neck neck is supple cardiovascular heart is regular lungs are pretty much clear abdomen soft nontender nondistended unremarkable extremities are intact no edema has good pulses neurology he has no focality lab studies lab studies reviewed and noted Data 09/07/25 17:33 09/07/25 17:33 A&P Assessment and plan 1. Intentional overdose of gabapentin: 2. Suicide attempt: 3. Involuntary commitment: 4. Infestation by bed bug: Plan: Intentional drug overdose to commit suicide - Admit to intensive care unit to guide against any system embarrassment for care - Gabapentin half-life is 5 hours - Monitor closely - Continue hydration gently Bedbug infestation - Contact isolation is mandatory - Follow protocol to take care of the bedbug for eradication Commitment is involuntary - Psychiatric consulted - I defer suicidal thoughts suicidal ideation suicidal attempts and overdose to commit harm to the psychiatrist And bethea - Patient needs counseling and care in psych bethea - Must transfer to psych bethea once accepted for further care Marginal hypokalemia - Potassium at this time is 3.6 and patient had received IV normal saline, will expect potassium to be lower - Will give oral potassium of 20 mEq orally GI and DVT prophylaxis in place - Continue to treat and optimize PDMP PDMP Reviewed: Not Reviewed Attestations Medical Necessity Statement*: Patient needs at least 23 hours to be optimized to go to psych bethea for further care Coding Level of Care Code 63213 Diagnoses Intentional overdose of gabapentin T42.6X2A Suicide attempt T14.91XA Involuntary commitment Z04.6 Infestation by bed bug B88.8 Time Spent (min) 60
[2025-09-07] MEDS: heparin 5,000 unit/mL INJ 1 mL 5000 UNIT SUBCUT (20:33)
--- OUTSIDE RECORDS SUMMARY | 2025-09-07 21:19 | XMS_ITS | Encounter Summary ---
Author Organization [facility] Address [address] [place] [address] Care Team Providers Care Garage Laborer Name Role Phone Franky Starkey MD Primary Care Provider +1 -[phone] Encounter Details Date Type Department Care Team (Latest Contact Info) Description 10/25/2001 Outpatient Historical [facility] Medicine [place] [address] [address] Car Suazo DO NO ADDRESS ON FILE ACUTE URI NOS (Primary Dx) Social History Tobacco Use Types Packs/Day Years Used Date Smoking Tobacco: Never Assessed Sex and Gender Information Value Date Recorded Sex Assigned at Not on file Legal Sex Male 3:58 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
--- OUTSIDE RECORDS SUMMARY | 2025-09-07 21:19 | XMS_ITS | Encounter Summary ---
Author Organization [facility] Address [address] [place] [address] Care Team Providers Care Admitting Representative Name Role Phone Franky Starkey MD Primary Care Provider +1 [phone] Encounter Details Date Type Department Care Team (Latest Contact Info) Description 09/14/2006 Outpatient Historical [facility] Medicine [place] [address] [phone] Gi Perez, PHILOSOPHY INSTRUCTOR [address] [place] [phone] Acute Upper Respiratory Infections of Unspecified Site (Primary Dx) Social History Tobacco Use Types Packs/Day Years Used Date Smoking Tobacco: Never Assessed Sex and Gender Information Value Date Recorded Sex Assigned at Not on file Legal Sex Male 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
--- OUTSIDE RECORDS SUMMARY | 2025-09-07 21:19 | XMS_ITS | Encounter Summary ---
Author Organization [facility] Address [address] [place] [address] Care Team Providers Care Real Estate Agency Licensee Name Role Phone Franky Starkey MD Primary Care Provider +1 [phone] Encounter Details Date Type Department Care Team (Late st Contact Info) Description 12/23/2005 Outpatient Historical [facility] [place] [address] [place] [phone] Social History Tobacco Use Types Packs/Day Years Used Date Smoking Tobacco: Never Assessed Sex and Gender Information Value Date Recorded Sex Assigned at Not on file Legal Sex Male 3:58 AM BAFFLE MOUNTER Gender Identity Not on file Sexual Orientation Not on file documented as of this encounter Plan of Treatment Not on file documented as of this encounter Visit Diagnoses Not on filedocumented in this encounter Care Teams Real Estate Agency Licensee Relationship Specialty Start Date End Date Franky Starkey MD [address] [facility] [address] [place] [phone] PCP - General Family Practice 03/03/17 09/07/17 documented as of this encounter
--- OUTSIDE RECORDS SUMMARY | 2025-09-07 21:19 | XMS_ITS | Clinical Summary ---
Author Organization [facility] Address [place] [address] Care Team Providers Care Doffer Name Role Phone Unavailable Primary Care Provider [...] on file Legal Sex Male 3:58 AM PICKLING OPERATOR Gender Identity Not on file Sexual Orientation Not on file Occupation Industry Job Start Date Job End Date Not on file Not on file Not on file Not on file Last Filed Vital Signs Vital Sign Reading Time Taken Comments Blood Pressure 151/78 09/15/2020 4:10 PM PICKLING OPERATOR Pulse 94 05/16/2020 3:44 PM CDT Temperature 36.7 C (98 F) 09/15/2020 4:10 PM PICKLING OPERATOR Respiratory Rate 18 09/15/2020 3:30 PM PICKLING OPERATOR Oxygen Saturation 100% 09/15/2020 4:10 PM PICKLING OPERATOR Inhaled Oxygen Concentration - - Weight 81.5 kg (179 lb 9.6 oz) 09/15/2020 3:30 P M PICKLING OPERATOR Height 182.9 cm (6') 09/15/2020 3:30 PM PICKLING OPERATOR Body Mass Index 24.36 09/15/2020 3:30 PM PICKLING OPERATOR Plan of Treatment Health Maintenance Due Date [...] DETECTED Not Detected 05/17/2020 7:06 PM CDT [facility] GC DNA AMPLIFICATION NOT DETECTED Not Detected 05/17/2020 7:06 PM CDT [facility] Urine URINE SPECIMEN / Unknown Collection / Unknown 05/16/2020 4:14 PM CDT 05/16/2020 4:40 PM CDT Narrative [facility] - 05/17/2020 7:06 PM CDT Results should not be used for the evaluation of suspected sexual abuse or for other medico-legal indications. The only legally accepted results are from culture. Results cannot be used to assess therapeutic success or failure since nucleic acids may persist following antimicrobial therapy. Raciel Avelar DO URINE ORDERABLES COM Final Re sult [facility] [id number] [address] [place] [address] from Last 3 Months or Most Recently Relevant to Health Maintenance Insurance [employer] * Guarantor: NATANAEL WHITTAKER Account Type Relation to Patient Date of Phone Billing Address Third Alliance Party Liability Other
--- OUTSIDE RECORDS SUMMARY | 2025-09-07 21:19 | XMS_ITS | Encounter Summary ---
Author Organization [facility] Address [address] [place] [address] Care Team Providers Care Electronic Publications Specialist Name Role Phone Franky Starkey MD Primary Care Provider +1 [phone] Encounter Details Date Type Department Care Team (Latest Contact Info) Description 12/07/2001 Outpatient Historical [facility] Family Medicine- [place] [address] [place] [address] Alfred Vera MD [address] [facility] [address] [place] [phone] OTITIS MEDIA NOS (Primary Dx); OTALGIA NOS; IMPACTED CERUMEN Social History Tobacco Use Types Packs/Day Years Used Date Smoking Tobacco: Never Assessed Sex and Gender Information Value Date Recorded Sex Assigned at Not on file Legal 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
--- OUTSIDE RECORDS SUMMARY | 2025-09-07 21:19 | XMS_ITS | Encounter Summary ---
Author Organization [facility] Address [address] Mondragon: [place] [address] Care Team Providers Care Veterinarian Epidemiologist Name Role Phone Franky Starkey MD Primary Care Provider +1 [phone] Encounter Details Date Type Department Care Team (Late st Contact Info) Description 02/21/2002 Outpatient Historical Nevin Hinojosa MD NO ADDRESS ON FILE Social History Tobacco Use Types Packs/Day Years Used Date Smoking Tobacco: Never Assessed Sex and Gender Information Value Date Recorded Sex Assigned at Not on file Legal Sex Male 3:58 AM SHIPWRIGHT SUPERVISOR Gender Identity Not on file Sexual Orientation Not on file documented as of this encounter Plan of Treatment Not on file documented as of this encounter Visit Diagnoses Not on filedocumented in this encounter Care Teams Veterinarian Epidemiologist Relationship Specialty Start Date End Date Franky Starkey MD [address] [facility] [address] [place] [address] PCP - General Family Practice 03/03/17 09/07/17 documented as of this encounter
--- OUTSIDE RECORDS SUMMARY | 2025-09-07 21:19 | XMS_ITS | Encounter Summary ---
Author Organization [facility] Address [address] [place] [address] Care Team Providers Care Buncher Machine Name Role Phone Franky Starkey MD Primary Care Provider +1 [phone] Encounter Details Date Type Department Care Team (Latest Contact Info) Description 08/04/2007 Outpatient Historical [facility] Medicine [place] [address] [phone] Gi Perez, FASHION PHOTOGRAPHER [address] [place] [phone] Abdominal Pain, Unspecified Site (Primary Dx); Diarrhea Social History Tobacco Use Types Packs/Day Years Used Date Smoking Tobacco: Never Assessed Sex and Gender Information Value Date Recorded Sex Assigned at Not on file Legal Sex Male 3:58 AM ATHLETIC TURF WORKER Gender Identity Not on file Sexual Orientation Not on file documented as of this encounter Plan of Treatment Not on file documented as of this encounter Visit Diagnoses Diagnosis Abdominal pain, unspecified site- Primary Diarrhea documented in this encounter Care Teams Buncher Machine Relationship Specialty Start Date End Date Franky Starkey MD [address] [phone] PCP - General Family Practice 03/03/17 09/07/17 documented as of this encounter
--- OUTSIDE RECORDS SUMMARY | 2025-09-07 21:19 | XMS_ITS | Encounter Summary ---
Author Organization [facility] Address [address] [place] [address] Care Team Providers Care Wire Rigger Name Role Phone Franky Starkey MD Primary Care Provider +1 -[phone] Encounter Details Date Type Department Care Team (Latest Contact Info) Description 08/08/2001 Outpatient Historical [facility] Medicine [place] [address] [phone] Alfred Vera MD [address] [phone] Unspecified otitis media (Primary Dx) Social History Tobacco Use Types Packs/Day Years Used Date Smoking Tobacco: Never Assessed Sex and Gender Information Value Date Recorded Sex Assigned at Not on file Legal Sex Male 3:58 AM FORESTRY ADVISER Gender Identity Not on file Sexual Orientation Not on file documented as of this encounter Plan of Treatment Not on file documented as of this encounter Visit Diagnoses Diagnosis Unspecified otitis media- Primary documented in this encounter Care Teams Wire Rigger Relationship Specialty Start Date End Date Franky Starkey MD [address] [phone] PCP - General Family Practice 03/03/17 09/07/17 documented as of this encounter
--- OUTSIDE RECORDS SUMMARY | 2025-09-07 21:19 | XMS_ITS | Encounter Summary ---
Author Organization [facility] Address [address] [place] [address] Care Team Providers Care Body And Fender Worker Name Role Phone Franky Starkey MD Primary Care Provider +1 -[phone] Encounter Details Date Type Department Care Team (Latest Contact Info) Description 08/22/2001 Outpatient Historical [facility] Medicine [place] [address] [phone] Alfred Vera MD [address] [phone] Unspecified otitis media (Primary Dx) Social History Tobacco Use Types Packs/Day Years Used Date Smoking Tobacco: Never Assessed Sex and Gender Information Value Date Recorded Sex Assigned at Not on file Legal Sex Male 3:58 AM ELECTRICAL POWER ENGINEER Gender Identity Not on file Sexual Orientation Not on file documented as of this encounter Plan of Treatment Not on file documented as of this encounter Visit Diagnoses Diagnosis Unspecified otitis media- Primary documented in this encounter Care Teams Body And Fender Worker Relationship Specialty Start Date End Date Franky Starkey MD [address] [phone] PCP - General Family Practice 03/03/17 09/07/17 documented as of this encounter
--- OUTSIDE RECORDS SUMMARY | 2025-09-07 21:19 | XMS_ITS | Encounter Summary ---
Author Organization [facility] Address [address] [place] [address] Care Team Providers Care Director Of Database Marketing Name Role Phone Franky Starkey MD Primary Care Provider +1 -[phone] Encounter Details Date Type Department Care Team (Latest Contact Info) Description 09/25/2003 Outpatient Historical [facility] Medicine [place] [address] [address] Car Suazo DO NO ADDRESS ON FILE ACUTE BRONCHITIS (Primary Dx); ASTHMA UNSPECIFIED; HYPOVOLEMIA Social History Tobacco Use Types Packs/Day Years Used Date Smoking Tobacco: Never Assessed Sex and Gender Information Value Date Recorded Sex Assigned at Not on file Legal Sex Male 3:58 AM CRITICAL CARE REGISTERED NURSE Gender Identity Not on file Sexual Orientation Not on file documented as of this encounter Plan of Treatment Not on file documented as of this encounter Visit Diagnoses Diagnosis Acute bronchitis- Primary Unspecified asthma(493.90) Unspecified asthma Volume depletion documented in this encounter Care Teams Director Of Database Marketing Relationship Specialty Start Date End Date Franky Starkey MD [address] [address] PCP - General Family Practice 03/03/17 09/07/17 documented as of this encounter
--- OUTSIDE RECORDS SUMMARY | 2025-09-07 21:19 | XMS_ITS | Encounter Summary ---
Author Organization [facility] Address [address] [place] [address] Care Team Providers Care Steam Shovel Operating Engineer Name Role Phone Franky Starkey MD Primary Care Provider +1 [phone] Encounter Details Date Type Department Care Team (Latest Contact Info) Description 12/22/2001 Outpatient Historical [facility] [place] [facility] Medicine [place] [address] [address] Nevin Hinojosa MD NO ADDRESS ON FILE OTITIS MEDIA NOS (Primary Dx); INFEC OTITIS EXTERNA NOS Social History Tobacco Use Types Packs/Day Years Used Date Smoking Tobacco: Never Assessed Sex and Gender Information Value Date Recorded Sex Assigned at Not on file Legal Sex Male 3:58 AM ISSUE CLERK Gender Identity Not on file Sexual Orientation Not on file documented as of this encounter Plan of Treatment Not on file documented as of this encounter Visit Diagnoses Diagnosis Unspecified otitis media- Primary Infective otitis externa, unspecified documented in this encounter Care Teams Steam Shovel Operating Engineer Relationship Specialty Start Date End Date Franky Starkey MD [address] [phone] PCP - General Family Practice 03/03/17 09/07/17 documented as of this encounter
--- OUTSIDE RECORDS SUMMARY | 2025-09-07 21:19 | XMS_ITS | Encounter Summary ---
Author Organization [facility] Address [address] [place] [address] Care Team Providers Care Chaplain Resident Name Role Phone Franky Starkey MD Primary Care Provider +1 -[phone] Encounter Details Date Type Department Care Team (Latest Contact Info) Description 12/06/2006 Outpatient Historical [facility] Medicine [place] [address] [address] Shoshana Mills NP NO ADDRESS ON FILE Acute Pharyngitis (Primary Dx); Cough Social History Tobacco Use Types Packs/Day Years Used Date Smoking Tobacco: Never Assessed Sex and Gender Information Value Date Recorded Sex Assigned at Not on file Legal Sex Male 3:58 AM PIN GAME 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
--- OUTSIDE RECORDS SUMMARY | 2025-09-07 21:19 | XMS_ITS | Encounter Summary ---
Author Organization [facility] Address [address] [place] [address] Care Team Providers Care Client Support Coordinator Name Role Phone Franky Starkey MD Primary Care Provider +1 -[phone] Encounter Details Date Type Department Care Team (Latest Contact Info) Description 01/30/2002 Outpatient Historical [facility] Medicine [place] [address] [phone] Alfred Vera MD [address] [phone] IMPACTED CERUMEN (Primary Dx) Social History Tobacco Use Types Packs/Day Years Used Date Smoking Tobacco: Never Assessed Sex and Gender Information Value Date Recorded Sex Assigned at Not on file Legal Sex Male 3:58 AM RETAIL AND RESTAURANT ASSOCIATE Gender Identity Not on file Sexual Orientation Not on file documented as of this encounter Plan of Treatment Not on file documented as of this encounter Visit Diagnoses Diagnosis Impacted cerumen- Primary documented in this encounter Care Teams Client Support Coordinator Relationship Specialty Start Date End Date Franky Starkey MD [address] [phone] PCP - General Family Practice 03/03/17 09/07/17 documented as of this encounter
--- OUTSIDE RECORDS SUMMARY | 2025-09-07 21:19 | XMS_ITS | Encounter Summary ---
Author Organization [facility] Address [address] [place] [address] Care Team Providers Care Template Reproduction Technician Name Role Phone Franky Starkey MD Primary Care Provider +1 -[phone] Encounter Details Date Type Department Care Team (Latest Contact Info) Description 03/09/2003 Outpatient Historical [facility] Medicine [place] [address] [phone] Nevin Hinojosa MD NO ADDRESS ON FILE DIARRHEA NOS (Primary Dx) Social History Tobacco Use Types Packs/Day Years Used Date Smoking Tobacco: Never Assessed Sex and Gender Information Value Date Recorded Sex Assigned at Not on file Legal Sex Male 3:58 AM RESIDENTIAL DESIGNER Gender Identity Not on file Sexual Orientation Not on file documented as of this encounter Plan of Treatment Not on file documented as of this encounter Visit Diagnoses Diagnosis Diarrhea- Primary documented in this encounter Care Teams Template Reproduction Technician Relationship Specialty Start Date End Date Franky Starkey MD [address] [phone] PCP - General Family Practice 03/03/17 09/07/17 documented as of this encounter
--- OUTSIDE RECORDS SUMMARY | 2025-09-07 21:19 | XMS_ITS | Encounter Summary ---
Author Organization [facility] Address [address] [place] [address] Care Team Providers Care Brand Representative Name Role Phone Franky Starkey MD Primary Care Provider +1 -[phone] Encounter Details Date Type Department Care Team (Latest Contact Info) Description 04/20/2001 Outpatient Historical [facility] Family Medicine- [place] [address] [place] [address] Car Suazo, NO ADDRESS ON FILE Unspecified otitis media (Primary Dx); Acute tonsillitis; Acute sinusitis, unspecified Social History Tobacco Use Types Packs/Day Years Used Date Smoking Tobacco: Never Assessed Sex and Gender Information Value Date Recorded Sex Assigned at Not on file Legal Sex Male 3:58 AM PARKING TECHNICIAN Gender Identity Not on file Sexual Orientation Not on file documented as of this encounter Plan of Treatment Not on file documented as of this encounter Visit Diagnoses Diagnosis Unspecified otitis media- Primary Acute tonsillitis Acute sinusitis, unspecified documented in this encounter Care Teams Brand Representative Relationship Specialty Start Date End Date Franky Starkey MD [address] [facility] [address] [place] [address] PCP - General Family Practice 03/03/17 09/07/17 documented as of this encounter
--- OUTSIDE RECORDS SUMMARY | 2025-09-07 21:19 | XMS_ITS | Encounter Summary ---
Author Organization [facility] Address [address] [place] [address] Care Team Providers Care Unemployment Examiner Name Role Phone Franky Starkey MD Primary Care Provider +1 -[phone] Encounter Details Date Type Department Care Team (Latest Contact Info) Description 12/04/[address] [facility] Medicine [place] [address] [address] Alfred Vera MD [address] [address] INFEC OTITIS EXTERNA NOS (Primary Dx); IMPACTED CERUMEN; SPEECH/LANGUAGE DIS NEC Social History Tobacco Use Types Packs/Day Years Used Date Smoking Tobacco: Never Assessed Sex and Gender Information Value Date Recorded Sex Assigned at Not on file Legal Sex Male 3:58 AM THERAPIST SPEECH Gender Identity Not on file Sexual Orientation Not on file documented as of this encounter Plan of Treatment Not on file documented as of this encounter Visit Diagnoses Diagnosis Infective otitis externa, unspecified- Primary Impacted cerumen Other developmental speech or language disorder documented in this encounter Care Teams Unemployment Examiner Relationship Specialty Start Date End Date Franky Starkey MD [address] [address] PCP - General Family Practice 03/03/17 09/07/17 documented as of this encounter
--- OUTSIDE RECORDS SUMMARY | 2025-09-07 21:19 | XMS_ITS | Encounter Summary ---
Author Organization [facility] Address [address] [place] [address] Care Team Providers Care Ore Washer Name Role Phone Franky Starkey MD Primary Care Provider +1 [phone] Encounter Details Date Type Department Care Team (Latest Contact Info) Description 12/27/2002 Outpatient Historical [facility] Medicine [place] [address] [phone] Alfred Vera MD [address] [address] ACUTE URI NOS (Primary Dx) Social History Tobacco Use Types Packs/Day Years Used Date Smoking Tobacco: Never Assessed Sex and Gender Information Value Date Recorded Sex Assigned at Not on file Legal 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
--- OUTSIDE RECORDS SUMMARY | 2025-09-07 21:19 | XMS_ITS | Encounter Summary ---
Author Organization [facility] Address [address] [place] [address] Care Team Providers Care Senior Sales Operations Manager Name Role Phone Franky Starkey MD Primary Care Provider +1 [phone] Encounter Details Date Type Department Care Team (Latest Contact Info) Description 07/20/2006 Outpatient Historical [facility] Medicine [place] [address] [phone] Gi Perez, MACHINE HEEL SPRAYER [address] [place] [phone] Acute Upper Respiratory Infections of Unspecified Site (Primary Dx) Social History Tobacco Use Types Packs/Day Years Used Date Smoking Tobacco: Never Assessed Sex and Gender Information Value Date Recorded Sex Assigned at Not on file 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
--- OUTSIDE RECORDS SUMMARY | 2025-09-07 21:19 | XMS_ITS | Encounter Summary ---
Author Organization [facility] Address [address] [place] [address] Care Team Providers Care Wafer Fabrication Operator Name Role Phone Franky Starkey MD Primary Care Provider +1 -[phone] Encounter Details Date Type Department Care Team (Latest Contact Info) Description 02/20/2002 Outpatient Historical [facility] Family Medicine- [place] [address] [facility] [place] [address] Nevin Hinojosa MD NO ADDRESS ON FILE ACUTE PHARYNGITIS (Primary Dx) Social History Tobacco Use Types Packs/Day Years Used Date Smoking Tobacco: Never Assessed Sex and Gender Information Value Date Recorded Sex Assigned at Not on file 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
--- OUTSIDE RECORDS SUMMARY | 2025-09-07 21:19 | XMS_ITS | Encounter Summary ---
Author Organization [facility] Address [address] [place] [address] Care Team Providers Care Warranty Manager Name Role Phone Franky Starkey MD Primary Care Provider +1 [phone] Encounter Details Date Type Department Care Team (Latest Contact Info) Description 07/31/2002 Outpatient Historical [facility] Medicine [place] [address] [address] Alfred Vera MD [address] [address] OTITIS MEDIA NOS (Primary Dx); ACUTE BRONCHITIS; IMPACTED CERUMEN Social History Tobacco Use Types Packs/Day Years Used Date Smoking Tobacco: Never Assessed Sex and Gender Information Value Date Recorded Sex Assigned at Not on file Legal 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
--- OUTSIDE RECORDS SUMMARY | 2025-09-07 21:19 | XMS_ITS | Encounter Summary ---
Author Organization [facility] Address [address] [place] [address] Care Team Providers Care Exterminator Termite Name Role Phone Franky Starkey MD Primary Care Provider +1 [phone] Encounter Details Date Type Department Care Team (Latest Contact Info) Description 04/22/2006 Outpatient Historical [facility] Medicine [place] [address] [address] Nevin Hinojosa MD NO ADDRESS ON FILE Dermatitis due to Plant (Primary Dx) Social History Tobacco Use Types Packs/Day Years Used Date Smoking Tobacco: Never Assessed Sex and Gender Information Value Date Recorded Sex Assigned at Not on file Legal Sex Male 3:58 AM HAND TWISTER Gender Identity Not on file Sexual Orientation Not on file documented as of this encounter Plan of Treatment Not on file documented as of this encounter Visit Diagnoses Diagnosis Dermatitis due to plant- Primary Contact dermatitis and other eczema due to plants (except food) documented in this encounter Care Teams Exterminator Termite Relationship Specialty Start Date End Date Franky Starkey MD [address] [phone] PCP - General Family Practice 03/03/17 09/07/17 documented as of this encounter
--- OUTSIDE RECORDS SUMMARY | 2025-09-07 21:20 | XMS_ITS | Encounter Summary ---
Author Organization [facility] Address [address] [place] [address] Care Team Providers Care Railroad Yard Worker Name Role Phone Franky Starkey MD Primary Care Provider +1 [phone] Encounter Details Date Type Department Care Team (Latest Contact Info) Description 12/09/2005 Outpatient Historical [facility] Medicine [place] [address] [address] Nevin Hinojosa MD NO ADDRESS ON FILE Dermatitis due to plant (Primary Dx) Social History Tobacco Use Types Packs/Day Years Used Date Smoking Tobacco: Never Assessed Sex and Gender Information Value Date Recorded Sex Assigned at Not on file Legal 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
--- OUTSIDE RECORDS SUMMARY | 2025-09-07 21:20 | XMS_ITS | Encounter Summary ---
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
--- OUTSIDE RECORDS SUMMARY | 2025-09-07 21:20 | XMS_ITS | Encounter Summary ---
Author Organization [facility] Address [address] [place] [address] Care Team Providers Care Vocational Technical Education Teacher Name Role Phone Franky Starkey MD Primary Care Provider +1 -[phone] Encounter Details Date Type Department Care Team (Latest Contact Info) Description 12/22/2005 Outpatient Historical [facility] Medicine [place] [address] [phone] Gi Perez, GREASE MACHINE WORKER [address] [place] [phone] ACUTE URI NOS (Primary Dx); COUGH Social History Tobacco Use Types Packs/Day Years Used Date Smoking Tobacco: Never Assessed Sex and Gender Information Value Date Recorded Sex Assigned at Not on file Legal 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
--- OUTSIDE RECORDS SUMMARY | 2025-09-07 21:20 | XMS_ITS | Encounter Summary ---
Author Organization [facility] Address [address] [place] [address] Care Team Providers Care Block Paver Name Role Phone Franky Starkey MD Primary Care Provider +1 -[phone] Encounter Details Date Type Department Care Team (Latest Contact Info) Description 01/01/2005 Outpatient Historical [facility] Medicine [place] [address] [address] Nevin Hinojosa MD NO ADDRESS ON FILE ACUTE URI NOS (Primary Dx) Social History Tobacco Use Types Packs/Day Years Used Date Smoking Tobacco: Never Assessed Sex and Gender Information Value Date Recorded Sex Assigned at Not on file Legal Sex Male 3:58 AM CABLE STRANDER Gender Identity Not on file Sexual Orientation Not on file documented as of this encounter Plan of Treatment Not on file documented as of this encounter Visit Diagnoses Diagnosis Acute upper respiratory infections of unspecified site- Primary documented in this encounter Care Teams Block Paver Relationship Specialty Start Date End Date Franky Starkey MD [address] [phone] PCP - General Family Practice 03/03/17 09/07/17 documented as of this encounter
--- OUTSIDE RECORDS SUMMARY | 2025-09-07 21:20 | XMS_ITS | Encounter Summary ---
Author Organization [facility] Address [address] [place] [address] Care Team Providers Care Any Commodity Buyer Name Role Phone Franky Starkey MD Primary Care Provider +1 -[phone] Encounter Details Date Type Department Care Team (Latest Contact Info) Description 03/12/2004 Outpatient Historical [facility] Medicine [place] [address] [address] Nevin Hinojosa MD NO ADDRESS ON FILE ACUTE PHARYNGITIS (Primary Dx); ACUTE BRONCHITIS Social History Tobacco Use Types Packs/Day Years Used Date Smoking Tobacco: Never Assessed Sex and Gender Information Value Date Recorded Sex Assigned at Not on file Legal 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
--- OUTSIDE RECORDS SUMMARY | 2025-09-07 21:20 | XMS_ITS | Encounter Summary ---
Author Organization [facility] Address [address] [place] [address] Care Team Providers Care Molded Rubber Goods Cutter Name Role Phone Franky Starkey MD Primary Care Provider +1 -[phone] Encounter Details Date Type Department Care Team (Latest Contact Info) Description 01/16/2005 Outpatient Historical [facility] Medicine [place] [address] [address] Shoshana Mills NP NO ADDRESS ON FILE Routine child health exam (Primary Dx) Social History Tobacco Use Types Packs/Day Years Used Date Smoking Tobacco: Never Assessed Sex and Gender Information Value Date Recorded Sex Assigned at Not on file Legal 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
--- OUTSIDE RECORDS SUMMARY | 2025-09-07 21:20 | XMS_ITS | Encounter Summary ---
Author Organization [facility] Address [address] [place] [address] Care Team Providers Care Director Of Medicare Name Role Phone Franky Starkey MD Primary Care Provider +1 -[phone] Encounter Details Date Type Department Care Team (Latest Contact Info) Description 02/04/2005 Outpatient Historical [facility] Family Medicine- [place] [address] [facility] [place] [address] Shoshana Mills NP NO ADDRESS ON FILE ACUTE PHARYNGITIS (Primary Dx); ACUTE BRONCHITIS Social History Tobacco Use Types Packs/Day Years Used Date Smoking Tobacco: Never Assessed Sex and Gender Information Value Date Recorded Sex Assigned at Not on file Legal Sex Male 3:58 AM PLANT PROPAGATOR Gender Identity Not on file Sexual Orientation Not on file documented as of this encounter Plan of Treatment Not on file documented as of this encounter Visit Diagnoses Diagnosis Acute pharyngitis- Primary Acute bronchitis documented in this encounter Care Teams Director Of Medicare Relationship Specialty Start Date End Date Franky Starkey MD [address] [facility] [address] [place] [address] PCP - General Family Practice 03/03/17 09/07/17 documented as of this encounter
--- OUTSIDE RECORDS SUMMARY | 2025-09-07 21:20 | XMS_ITS | Encounter Summary ---
Author Organization [facility] Address [address] [place] [address] Care Team Providers Care Air Traffic Controller Center Name Role Phone Franky Starkey MD Primary Care Provider +1 -[phone] Encounter Details Date Type Department Care Team (Latest Contact Info) Description 10/01/2003 Outpatient Historical [facility] Family Medicine- [place] [address] [place] [address] Car Suazo, NO ADDRESS ON FILE PNEUMONIA, ORGANISM NOS (Primary Dx) Social History Tobacco Use Types Packs/Day Years Used Date Smoking Tobacco: Never Assessed Sex and Gender Information Value Date Recorded Sex Assigned at Not on file Legal Sex Male 3:58 AM PILING SETTER Gender Identity Not on file Sexual Orientation Not on file documented as of this encounter Plan of Treatment Not on file documented as of this encounter Visit Diagnoses Diagnosis Pneumonia, organism unspecified(486)- Primary Pneumonia, organism unspecified documented in this encounter Care Teams Air Traffic Controller Center Relationship Specialty Start Date End Date Franky Starkey MD [address] [place] [phone] PCP - General Family Practice 03/03/17 09/07/17 documented as of this encounter
--- OUTSIDE RECORDS SUMMARY | 2025-09-07 21:20 | XMS_ITS | Encounter Summary ---
Author Organization [facility] Address [address] [place] [address] Care Team Providers Care Director Of Rehabilitation And Wellness Name Role Phone Franky Starkey MD Primary Care Provider +1 -[phone] Encounter Details Date Type Department Care Team (Latest Contact Info) Description 10/29/2003 Outpatient Historical [facility] Medicine [place] [address] [address] Car Suazo DO NO ADDRESS ON FILE ACUTE BRONCHITIS (Primary Dx) Social History Tobacco Use Types Packs/Day Years Used Date Smoking Tobacco: Never Assessed Sex and Gender Information Value Date Recorded Sex Assigned at Not on file Legal 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
--- NOTE | 2025-09-07 23:21 | PC.NURSE ---
Poison control called and stated they are closing patient's case on their end and have no further recommendations.
[2025-09-08] VITALS (27 sets, daily range): BP systolic 113–164; BP diastolic 6–87; PULSE 64–109; RESP 12–21; TEMP 36.5–37.1; O2SAT 94–100
[2025-09-08] MEDS: pantoprazole 40 mg SDV IVP (04:20)
[2025-09-08 04:44] LABS: Hematocrit 47.1 % (37-53); Hemoglobin 16.30 g/dL (11.27-16.99); Mean Corpuscular HGB Conc 34.6 g/dL (30-55); Mean Corpuscular Hemoglobin 32.0 pg (27-33); Mean Corpuscular Volume 92.5 fl (82-101); Nucleated Red Blood Cells % 0 %; Platelet Count 315 10^3/cmm (157-399); Red Blood Count 5.09 10^6/uL (3.85-5.65); White Blood Count 7.57 10^3/uL (3.29-11.43)
[2025-09-08 05:10] LABS: Alanine Aminotransferase 15 U/L (0-41); Albumin Level 4.3 g/dL (3.5-5.2); Alkaline Phosphatase 61 U/L (40-130); Anion Gap 16.0 (5-19); Aspartate Amino Transferase 13 U/L (0-40); Blood Urea Nitrogen 16 mg/dL (6-20); Calcium 8.8 mg/dL (8.5-10.5); Carbon Dioxide 24 mmol/L (22-29); Chloride 104 mmol/L (98-107); Creatinine Clr Calc Pharmacy 146.1649; Globulin 2.2 g/dL (1.3-4.6); Glucose 82 mg/dL (65-115); Magnesium 2.2 mg/dL (1.7-2.3); Osmolality Calculated 290 mOsm/kg (285-295); Potassium 4.0 mmol/L (3.5-5.1); Sodium 140 mmol/L (136-145); Total Protein 6.5 g/dL (6.6-8.7)
--- NOTE | 2025-09-08 10:23 | PC.NURSE ---
While rounding, patient was asked if he needed anything or if he was interested in reading or watching TV. Patient states, No, I am really just going along with everything until I can get out of here and do it again. Patient educated on plan of care and encouraged to speak freely with staff and providers.
--- NOTE | 2025-09-08 10:36 | PM.PN ---
Subjective Subjective: Patient was seen in the morning, he was emotional and was teary. He further reported that he still has an intention to kill himself as he is done with his . He further reported that he has no want to support him and does not care to live He was having tears and sobbing while having conversation. Vitals/I&O/Wt Last Vital Signs Temp 98.8 F 09/08/25 08:00 Pulse 79 09/08/25 10:30 Resp 12 09/08/25 10:30 BP 134/83 09/08/25 10:30 Pulse Ox 96 09/08/25 10:30 O2 Del Method Room Air 09/08/25 10:30 09/07/25 09/08/25 09/08/25 22:59 06:59 14:59 Intake Total 1000 / 1000 847.5 / 1847.5 1285 / 1285 Balance 1000 / 1000 847.5 / 1847.5 1285 / 1285 Weight last 48 hrs Weight 91.308 kg Weight 91.308 kg Weight 92.079 kg Physical Exam Narrative: General: Alert and oriented, lying comfortably without any distress HEENT: Normocephalic, atraumatic, grossly unremarkable exam Cardio: normal rate rhythm, normal S1-S2 without any murmurs, rubs, or gallops and JVD normal Respiratory: normal vascular breathing on auscultation without any wheezes, stridor, rhonchi GI: Abdomen soft, nontender, nondistended, normoactive bowel sounds present all 4 quadrants, Neuro: intact cranial nerves motor and sensory and cerebellar/coordination function without any focal neurological deficit Behavior: Appropriate and cooperative Extremities: Adequate palpable pulses, no edema or cyanosis observed Skin: grossly unremarkable exam Data 09/08/25 04:18 09/08/25 04:18 A&P Assessment and plan 1. Suicide attempt: Patient took gabapentin around 10,000 mg / 24 tablets of 400 mg. He was drowsy at the presentation however currently oriented to time place and person and still suicidal with his plans. Patient is cleared medically since that time has already passed for gabapentin half-life and beyond and the patient vital signs, EKG has been unremarkable Patient to be transferred to neuropsych 2. Intentional overdose of gabapentin: Patient has surpassed the half-life of gabapentin without any complication and currently stable clinically and vitally. Cleared medically and to be further managed by psych since he still having suicidal thoughts 3. Infestation by bed bug: It was reported by the assigned nurse in the ER that the patient is having infestation by bedbug. On clinical examination it was not much revealing however continue to have contact precautions PDMP PDMP Reviewed: Not Reviewed Attestations Medical Necessity Statement*: Patient to be transferred to [facility] and will stay over night considering having active suicidal attempt and still having a plan to carry it after discharge Time Spent in Patient Care: 16 - 35 minutes (>than 50% of time spent in counselling and/or direct pt care on unit). Critical Care Time: The high probability of a clinically significant, sudden or life threatening deterioration, as referenced in this documentation, required my full and direct attention, intervention and personal management. The critical care time shown is in addition to time spent performing any reported separately billable procedures and includes the following: [x] Data and vital sign review and interpretation [x] Patient assessment, examination and intervention [x] Medication orders and management [x] Patient/Family updates as able [x] Care Coordination and Documentation. Other Attestations: Patient condition has been discussed at length with the patient/family, I have independently reviewed the chart labs imaging/diagnostics/EKG. the goals of care and code status with the patient/family/NOK/legal guest service representative, and documented accordingly. The patient/family has been informed about the current condition and further plan of care. Agreed with the plan of care and understood without any language barrier. Every effort was made to ensure accuracy of occupational therapy assistant. Any obvious errors or omissions should be clarified with the author of the document. Coding Level of Care Code Acute Code for Chg Fwd Diagnoses Suicide attempt T14.91XA Intentional overdose of gabapentin T42.6X2A Infestation by bed bug B88.8
--- OUTSIDE RECORDS SUMMARY | 2025-09-08 11:14 | XMS_ITS | Encounter Summary ---
Author Organization [facility] Address [address] [place] [address] Care Team Providers Care House Player Name Role Phone Franky Starkey MD Primary Care Provider +1 -[phone] Encounter Details Date Type Department Care Team (Latest Contact Info) Description 02/20/2002 Outpatient Historical [facility] Family Medicine- [place] [address] [place] [address] Nevin Hinojosa MD NO ADDRESS ON FILE ACUTE PHARYNGITIS (Primary Dx) Social History Tobacco Use Types Packs/Day Years Used Date Smoking Tobacco: Never Assessed Sex and Gender Information Value Date Recorded Sex Assigned at Not on file Legal Sex Male 3:58 AM PRINT PRODUCER Gender Identity Not on file Sexual Orientation Not on file documented as of this encounter Plan of Treatment Not on file documented as of this encounter Visit Diagnoses Diagnosis Acute pharyngitis- Primary documented in this encounter Care Teams House Player Relationship Specialty Start Date End Date Franky Starkey MD [address] [facility] [address] [place] [address] PCP - General Family Practice 03/03/17 09/07/17 documented as of this encounter
--- OUTSIDE RECORDS SUMMARY | 2025-09-08 11:14 | XMS_ITS | Encounter Summary ---
Author Organization [facility] Address [address] [place] [address] Care Team Providers Care Farmworker Grain Name Role Phone Franky Starkey MD Primary Care Provider +1 -[phone] Encounter Details Date Type Department Care Team (Latest Contact Info) Description 04/22/2006 Outpatient Historical [facility] Medicine [place] [address] [address] Nevin Hinojosa MD NO ADDRESS ON FILE Dermatitis due to Plant (Primary Dx) Social History Tobacco Use Types Packs/Day Years Used Date Smoking Tobacco: Never Assessed Sex and Gender Information Value Date Recorded Sex Assigned at Not on file Legal 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
--- OUTSIDE RECORDS SUMMARY | 2025-09-08 11:14 | XMS_ITS | Encounter Summary ---
Author Organization [facility] Address [address] [place] [address] Care Team Providers Care First Line Production Supervisor Name Role Phone Franky Starkey MD Primary Care Provider +1 -[phone] Encounter Details Date Type Department Care Team (Latest Contact Info) Description 03/09/2003 Outpatient Historical [facility] Medicine [place] [address] [phone] Nevin Hinojosa MD NO ADDRESS ON FILE DIARRHEA NOS (Primary Dx) Social History Tobacco Use Types Packs/Day Years Used Date Smoking Tobacco: Never Assessed Sex and Gender Information Value Date Recorded Sex Assigned at Not on file Legal 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
--- OUTSIDE RECORDS SUMMARY | 2025-09-08 11:14 | XMS_ITS | Encounter Summary ---
Author Organization [facility] Address [address] [place] [address] Care Team Providers Care Assisted Living Associate Name Role Phone Franky Starkey MD Primary Care Provider +1 -[phone] Encounter Details Date Type Department Care Team (Latest Contact Info) Description 12/09/2005 Outpatient Historical [facility] Medicine [place] [address] [address] Nevin Hinojosa MD NO ADDRESS ON FILE Dermatitis due to plant (Primary Dx) Social History Tobacco Use Types Packs/Day Years Used Date Smoking Tobacco: Never Assessed Sex and Gender Information Value Date Recorded Sex Assigned at Not on file Legal Sex Male 3:58 AM CUFFER Gender Identity Not on file Sexual Orientation Not on file documented as of this encounter Plan of Treatment Not on file documented as of this encounter Visit Diagnoses Diagnosis Dermatitis due to plant- Primary Contact dermatitis and other eczema due to plants (except food) documented in this encounter Care Teams Assisted Living Associate Relationship Specialty Start Date End Date Franky Starkey MD [address] [phone] PCP - General Family Practice 03/03/17 09/07/17 documented as of this encounter
--- OUTSIDE RECORDS SUMMARY | 2025-09-08 11:14 | XMS_ITS | Encounter Summary ---
Author Organization [facility] Address [address] [place] [address] Care Team Providers Care Child Support Specialist Name Role Phone Franky Starkey MD Primary Care Provider +1 -[phone] Encounter Details Date Type Department Care Team (Late st Contact Info) Description 04/12/2004 Outpatient Historical [facility] 06 Daryl Schroeder MD [address] [address] Social History Tobacco Use Types Packs/Day Years Used Date Smoking Tobacco: Never Assessed Sex and Gender Information Value Date Recorded Sex Assigned at Not on file Legal Sex Male 3:58 AM FEDERAL AGENT Gender Identity Not on file Sexual Orientation Not on file documented as of this encounter Plan of Treatment Not on file documented as of this encounter Visit Diagnoses Not on filedocumented in this encounter Care Teams Child Support Specialist Relationship Specialty Start Date End Date Franky Starkey MD [address] [phone] PCP - General Family Practice 03/03/17 09/07/17 documented as of this encounter
--- OUTSIDE RECORDS SUMMARY | 2025-09-08 11:14 | XMS_ITS | Encounter Summary ---
Author Organization [facility] Address 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
--- OUTSIDE RECORDS SUMMARY | 2025-09-08 11:14 | XMS_ITS | Encounter Summary ---
Author Organization [facility] Address [address] [place] [address] Care Team Providers Care Plastics Fabrication Supervisor Name Role Phone Franky Starkey MD Primary Care Provider +1 [phone] Encounter Details Date Type Department Care Team (Latest Contact Info) Description 10/29/2003 Outpatient Historical [facility] Medicine [place] [address] [address] Car Suazo DO NO ADDRESS ON FILE ACUTE BRONCHITIS (Primary Dx) Social History Tobacco Use Types Packs/Day Years Used Date Smoking Tobacco: Never Assessed Sex and Gender Information Value Date Recorded Sex Assigned at Not on file Legal Sex Male 3:58 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
--- OUTSIDE RECORDS SUMMARY | 2025-09-08 11:14 | XMS_ITS | Encounter Summary ---
Author Organization [facility] Address [address] [place] [address] Care Team Providers Care Carrier Packer Name Role Phone Franky Starkey MD Primary Care Provider +1 -[phone] Encounter Details Date Type Department Care Team (Latest Contact Info) Description 12/07/2001 Outpatient Historical [facility] Family Medicine- [place] [address] [place] [address] Alfred Vera MD [address] [facility] [address] [place] [phone] OTITIS MEDIA NOS (Primary Dx); OTALGIA NOS; IMPACTED CERUMEN Social History Tobacco Use Types Packs/Day Years Used Date Smoking Tobacco: Never Assessed Sex and Gender Information Value Date Recorded Sex Assigned at Not on file Legal 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
--- OUTSIDE RECORDS SUMMARY | 2025-09-08 11:14 | XMS_ITS | Encounter Summary ---
Author Organization [facility] Address [address] [place] [address] Care Team Providers Care Supervisor Record Press Name Role Phone Franky Starkey MD Primary Care Provider +1 -[phone] Encounter Details Date Type Department Care Team (Late st Contact Info) Description 12/23/2005 Outpatient Historical [facility] [place] [facility] [place] [address] [place] [phone] Social History Tobacco Use Types Packs/Day Years Used Date Smoking Tobacco: Never Assessed Sex and Gender Information Value Date Recorded Sex Assigned at Not on file Legal Sex Male 3:58 AM TEXTILE DESIGNS SALES 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
--- OUTSIDE RECORDS SUMMARY | 2025-09-08 11:14 | XMS_ITS | Encounter Summary ---
Author Organization [facility] Address [address] [place] [address] Care Team Providers Care Senior Java Data Architect Name Role Phone Franky Starkey MD Primary Care Provider +1 -[phone] Encounter Details Date Type Department Care Team (Latest Contact Info) Description 07/20/2006 Outpatient Historical [facility] Medicine [place] [address] [phone] Gi Perez, EHS TEACHER [address] [place] [phone] Acute Upper Respiratory Infections of Unspecified Site (Primary Dx) Social History Tobacco Use Types Packs/Day Years Used Date Smoking Tobacco: Never Assessed Sex and Gender Information Value Date Recorded Sex Assigned at Not on file Legal Sex Male 3:58 AM CLINIC MD ASSOCIATE Gender Identity Not on file Sexual Orientation Not on file documented as of this encounter Plan of Treatment Not on file documented as of this encounter Visit Diagnoses Diagnosis Acute upper respiratory infections of unspecified site- Primary documented in this encounter Care Teams Senior Java Data Architect Relationship Specialty Start Date End Date Franky Starkey MD [address] [phone] PCP - General Family Practice 03/03/17 09/07/17 documented as of this encounter
--- OUTSIDE RECORDS SUMMARY | 2025-09-08 11:14 | XMS_ITS | Encounter Summary ---
Author Organization [facility] Address [address] [place] [address] Care Team Providers Care Industrial Gas Fitter Name Role Phone Franky Starkey MD Primary Care Provider +1 -[phone] Encounter Details Date Type Department Care Team (Latest Contact Info) Description 08/22/2001 Outpatient Historical [facility] Medicine [place] [address] [phone] Alfred Vera MD [address] [phone] Unspecified otitis media (Primary Dx) Social History Tobacco Use Types Packs/Day Years Used Date Smoking Tobacco: Never Assessed Sex and Gender Information Value Date Recorded Sex Assigned at Not on file Legal Sex Male 3:58 AM EXHAUST AND 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
--- OUTSIDE RECORDS SUMMARY | 2025-09-08 11:14 | XMS_ITS | Encounter Summary ---
Author Organization [facility] Address [address] [place] [address] Care Team Providers Care Oscillograph Technician Name Role Phone Franky Starkey MD Primary Care Provider +1 -[phone] Encounter Details Date Type Department Care Team (Latest Contact Info) Description 10/25/2001 Outpatient Historical [facility] Medicine [place] [address] [address] Car Suazo DO NO ADDRESS ON FILE ACUTE URI NOS (Primary Dx) Social History Tobacco Use Types Packs/Day Years Used Date Smoking Tobacco: Never Assessed Sex and Gender Information Value Date Recorded Sex Assigned at Not on file Legal Sex Male 3:58 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
--- OUTSIDE RECORDS SUMMARY | 2025-09-08 11:14 | XMS_ITS | Encounter Summary ---
Author Organization [facility] Address [address] [place] [address] Care Team Providers Care Watcher Lookout Tower Name Role Phone Franky Starkey MD Primary Care Provider +1 -[phone] Encounter Details Date Type Department Care Team (Latest Contact Info) Description 12/27/2002 Outpatient Historical [facility] Medicine [place] [address] [phone] Alfred Vera MD [address] [address] ACUTE URI NOS (Primary Dx) Social History Tobacco Use Types Packs/Day Years Used Date Smoking Tobacco: Never Assessed Sex and Gender Information Value Date Recorded Sex Assigned at Not on file Legal Sex Male 3:58 AM CREDIT ANALYST Gender Identity Not on file Sexual Orientation Not on file documented as of this encounter Plan of Treatment Not on file documented as of this encounter Visit Diagnoses Diagnosis Acute upper respiratory infections of unspecified site- Primary documented in this encounter Care Teams Watcher Lookout Tower Relationship Specialty Start Date End Date Franky Starkey MD [address] [phone] PCP - General Family Practice 03/03/17 09/07/17 documented as of this encounter
--- OUTSIDE RECORDS SUMMARY | 2025-09-08 11:14 | XMS_ITS | Encounter Summary ---
Author Organization [facility] Address [address] [place] [address] Care Team Providers Care Balancing Machine Operator Name Role Phone Franky Starkey MD Primary Care Provider +1 -[phone] Encounter Details Date Type Department Care Team (Latest Contact Info) Description 01/30/2002 Outpatient Historical [facility] Medicine [place] [address] [phone] Alfred Vera MD [address] [phone] IMPACTED CERUMEN (Primary Dx) Social History Tobacco Use Types Packs/Day Years Used Date Smoking Tobacco: Never Assessed Sex and Gender Information Value Date Recorded Sex Assigned at Not on file Legal Sex Male 3:58 AM MAIL PROCESSOR Gender Identity Not on file Sexual Orientation Not on file documented as of this encounter Plan of Treatment Not on file documented as of this encounter Visit Diagnoses Diagnosis Impacted cerumen- Primary documented in this encounter Care Teams Balancing Machine Operator Relationship Specialty Start Date End Date Franky Starkey MD [address] [phone] PCP - General Family Practice 03/03/17 09/07/17 documented as of this encounter
--- OUTSIDE RECORDS SUMMARY | 2025-09-08 11:14 | XMS_ITS | Encounter Summary ---
Author Organization [facility] Address [address] [place] [address] Care Team Providers Care Professor Of Religion Name Role Phone Franky Starkey MD Primary Care Provider +1 -[phone] Encounter Details Date Type Department Care Team (Latest Contact Info) Description 09/25/2003 Outpatient Historical [facility] Medicine [place] [address] [address] Car Suazo DO NO ADDRESS ON FILE ACUTE BRONCHITIS (Primary Dx); ASTHMA UNSPECIFIED; HYPOVOLEMIA Social History Tobacco Use Types Packs/Day Years Used Date Smoking Tobacco: Never Assessed Sex and Gender Information Value Date Recorded Sex Assigned at Not on file Legal Sex Male 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
--- OUTSIDE RECORDS SUMMARY | 2025-09-08 11:14 | XMS_ITS | Encounter Summary ---
Author Organization [facility] Address [address] [place] [address] Care Team Providers Care Doctor Of Podiatric Medicine Name Role Phone Franky Starkey MD Primary Care Provider +1 -[phone] Encounter Details Date Type Department Care Team (Latest Contact Info) Description 12/22/2005 Outpatient Historical [facility] Medicine [place] [address] [phone] Gi Perez, HEAD OF TALENT MANAGEMENT [address] [place] [phone] ACUTE URI NOS (Primary Dx); COUGH Social History Tobacco Use Types Packs/Day Years Used Date Smoking Tobacco: Never Assessed Sex and Gender Information Value Date Recorded Sex Assigned at Not on file Legal 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
--- OUTSIDE RECORDS SUMMARY | 2025-09-08 11:14 | XMS_ITS | Encounter Summary ---
Author Organization [facility] Address [address] [place] [address] Care Team Providers Care Prawn Trawler Hand Name Role Phone Franky Starkey MD Primary Care Provider +1 -[phone] Encounter Details Date Type Department Care Team (Latest Contact Info) Description 01/01/2005 Outpatient Historical [facility] Medicine [place] [address] [address] Nevin Hinojosa MD NO ADDRESS ON FILE ACUTE URI NOS (Primary Dx) Social History Tobacco Use Types Packs/Day Years Used Date Smoking Tobacco: Never Assessed Sex and Gender Information Value Date Recorded Sex Assigned at Not on file Legal Sex Male 3:58 AM DRILL HAND Gender Identity Not on file Sexual Orientation Not on file documented as of this encounter Plan of Treatment Not on file documented as of this encounter Visit Diagnoses Diagnosis Acute upper respiratory infections of unspecified site- Primary documented in this encounter Care Teams Prawn Trawler Hand Relationship Specialty Start Date End Date Franky Starkey MD [address] [phone] PCP - General Family Practice 03/03/17 09/07/17 documented as of this encounter
--- OUTSIDE RECORDS SUMMARY | 2025-09-08 11:14 | XMS_ITS | Encounter Summary ---
Author Organization [facility] Address [address] [place] [address] Care Team Providers Care Cook Chili Name Role Phone Franky Starkey MD Primary Care Provider +1 -[phone] Encounter Details Date Type Department Care Team (Latest Contact Info) Description 07/31/2002 Outpatient Historical [facility] Medicine [place] [address] [phone] Alfred Vera MD [address] [address] OTITIS MEDIA NOS (Primary Dx); ACUTE BRONCHITIS; IMPACTED CERUMEN Social History Tobacco Use Types Packs/Day Years Used Date Smoking Tobacco: Never Assessed Sex and Gender Information Value Date Recorded Sex Assigned at Not on file Legal Sex Male 3:58 AM FLIGHT MANAGER Gender Identity Not on file Sexual Orientation Not on file documented as of this encounter Plan of Treatment Not on file documented as of this encounter Visit Diagnoses Diagnosis Unspecified otitis media- Primary Acute bronchitis Impacted cerumen documented in this encounter Care Teams Cook Chili Relationship Specialty Start Date End Date Franky Starkey MD [address] [phone] PCP - General Family Practice 03/03/17 09/07/17 documented as of this encounter
--- OUTSIDE RECORDS SUMMARY | 2025-09-08 11:14 | XMS_ITS | Encounter Summary ---
Author Organization [facility] Address [address] [place] [address] Care Team Providers Care Grain I Farmworker Name Role Phone Frakny Starkey MD Primary Care Provider +1 -[phone] Encounter Details Date Type Department Care Team (Latest Contact Info) Description 09/14/2006 Outpatient Historical [facility] Medicine [place] [address] [phone] Gi Perez, COMMUNITY RESOURCE CONSULTANT [address] [place] [phone] Acute Upper Respiratory Infections of Unspecified Site (Primary Dx) Social History Tobacco Use Types Packs/Day Years Used Date Smoking Tobacco: Never Assessed Sex and Gender Information Value Date Recorded Sex Assigned at Not on file Legal Sex Male 3:58 AM HRIS SPECIALIST Gender Identity Not on file Sexual Orientation Not on file documented as of this encounter Plan of Treatment Not on file documented as of this encounter Visit Diagnoses Diagnosis Acute upper respiratory infections of unspecified site- Primary documented in this encounter Care Teams Grain I Farmworker Relationship Specialty Start Date End Date Franky Starkey MD [address] [phone] PCP - General Family Practice 03/03/17 09/07/17 documented as of this encounter
--- OUTSIDE RECORDS SUMMARY | 2025-09-08 11:14 | XMS_ITS | Encounter Summary ---
Author Organization [facility] Address [address] [place] [address] Care Team Providers Care Bail Bond Agent Name Role Phone Franky Starkey MD Primary Care Provider [phone] [phone] Encounter Details Date Type Department Care Team (Latest Contact Info) Description 02/04/2005 Outpatient Historical [facility] Family Medicine- [place] [address] [place] [address] Shoshana Mills NP NO ADDRESS ON FILE ACUTE PHARYNGITIS (Primary Dx); ACUTE BRONCHITIS Social History Tobacco Use Types Packs/Day Years Used Date Smoking Tobacco: Never Assessed Sex and Gender Information Value Date Recorded Sex Assigned at Not on file Legal Sex Male 3:58 AM 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
--- OUTSIDE RECORDS SUMMARY | 2025-09-08 11:14 | XMS_ITS | Clinical Summary ---
Author Organization [facility] Address [address] [place] [address] Care Team Providers Care Industrial Robotics Mechanic Name Role Phone Unavailable Primary Care Provider [...] on file Legal Sex Male 3:58 AM HEALTHCARE SALES REPRESENTATIVE Gender Identity Not on file Sexual Orientation Not on file Occupation Industry Job Start Date Job End Date Not on file Not on file Not on file Not on file Last Filed Vital Signs Vital Sign Reading Time Taken Comments Blood Pressure 151/78 09/15/2020 4:10 PM HEALTHCARE SALES REPRESENTATIVE Pulse 94 05/16/2020 3:44 PM CDT Temperature 36.7 C (98 F) 09/15/2020 4:10 PM HEALTHCARE SALES REPRESENTATIVE Respiratory Rate 18 09/15/2020 3:30 PM HEALTHCARE SALES REPRESENTATIVE Oxygen Saturation 100% 09/15/2020 4:10 PM HEALTHCARE SALES REPRESENTATIVE Inhaled Oxygen Concentration - - Weight 81.5 kg (179 lb 9.6 oz) 09/15/2020 3:30 P M HEALTHCARE SALES REPRESENTATIVE Height 182.9 cm (6') 09/15/2020 3:30 PM HEALTHCARE SALES REPRESENTATIVE Body Mass Index 24.36 09/15/2020 3:30 PM HEALTHCARE SALES REPRESENTATIVE Plan of Treatment Health Maintenance Due Date [...] DETECTED Not Detected 05/17/2020 7:06 PM CDT [facility] GC DNA AMPLIFICATION NOT DETECTED Not Detected 05/17/2020 7:06 PM CDT [facility] Urine URINE SPECIMEN / Unknown Collection / Unknown 05/16/2020 4:14 PM CDT 05/16/2020 4:40 PM CDT Narrative [facility] - 05/17/2020 7:06 PM CDT Results should not be used for the evaluation of suspected sexual abuse or for other medico-legal indications. The only legally accepted results are from culture. Results cannot be used to assess therapeutic success or failure since nucleic acids may persist following antimicrobial therapy. Raciel Avelar DO URINE ORDERABLES COM Final Re sult [facility] [id number] [address] [place] [address] from Last 3 Months or Most Recently Relevant to Health Maintenance Insurance [employer] * Guarantor: NATANAEL WHITTAKER Account Type Relation to Patient Date of Phone Billing Address Third Constitution Party Liability Other
--- OUTSIDE RECORDS SUMMARY | 2025-09-08 11:14 | XMS_ITS | Encounter Summary ---
Author Organization [facility] Address [address] [place] [address] Care Team Providers Care Benzene Washer Name Role Phone Franky Stareky MD Primary Care Provider [phone] [phone] Encounter Details Date Type Department Care Team (Latest Contact Info) Description 12/04/2002 Outpatient Historical [facility] Medicine [place] [address] [address] Alfred Vera MD [address] [address] INFEC OTITIS EXTERNA NOS (Primary Dx); IMPACTED CERUMEN; SPEECH/LANGUAGE DIS NEC Social History Tobacco Use Types Packs/Day Years Used Date Smoking Tobacco: Never Assessed Sex and Gender Information Value Date Recorded Sex Assigned at Not on file 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
--- OUTSIDE RECORDS SUMMARY | 2025-09-08 11:14 | XMS_ITS | Encounter Summary ---
Author Organization [facility] Address [address] [place] [address] Care Team Providers Care As400 Consultant Name Role Phone Franky Starkey MD Primary Care Provider [phone] [phone] Encounter Details Date Type Department Care Team (Latest Contact Info) Description 08/08/2001 Outpatient Historical [facility] Medicine [place] [address] [phone] Alfred Vera MD [address] [phone] Unspecified otitis media (Primary Dx) Social History Tobacco Use Types Packs/Day Years Used Date Smoking Tobacco: Never Assessed Sex and Gender Information Value Date Recorded Sex Assigned at Not on file 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
--- OUTSIDE RECORDS SUMMARY | 2025-09-08 11:14 | XMS_ITS | Encounter Summary ---
Author Organization [facility] Address [address] [place] [address] Care Team Providers Care Manager Credit Collections Name Role Phone Franky Starkey MD Primary Care Provider +1 [phone] Encounter Details Date Type Department Care Team (Latest Contact Info) Description 04/20/2001 Outpatient Historical [facility] Family Medicine- [place] [address] [place] [address] Car Suazo, NO ADDRESS ON FILE Unspecified otitis media (Primary Dx); Acute tonsillitis; Acute sinusitis, unspecified Social History Tobacco Use Types Packs/Day Years Used Date Smoking Tobacco: Never Assessed Sex and Gender Information Value Date Recorded Sex Assigned at Not on file 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
--- OUTSIDE RECORDS SUMMARY | 2025-09-08 11:14 | XMS_ITS | Encounter Summary ---
Author Organization [facility] Address [address] [place] [address] Care Team Providers Care Drapery Rod Assembler Name Role Phone Franky Starkey MD Primary Care Provider +1 [phone] Encounter Details Date Type Department Care Team (Latest Contact Info) Description 10/01/2003 Outpatient Historical [facility] Family Medicine- [place] [address] [place] [address] Car Suazo, NO ADDRESS ON FILE PNEUMONIA, ORGANISM NOS (Primary Dx) Social History Tobacco Use Types Packs/Day Years Used Date Smoking Tobacco: Never Assessed Sex and Gender Information Value Date Recorded Sex Assigned at Not on file 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
--- OUTSIDE RECORDS SUMMARY | 2025-09-08 11:14 | XMS_ITS | Encounter Summary ---
Author Organization [facility] Address [address] [place] [address] Care Team Providers Care Shell Fisherman Name Role Phone Franky Starkey MD Primary Care Provider [phone] [phone] Encounter Details Date Type Department Care Team (Latest Contact Info) Description 01/16/2005 Outpatient Historical [facility] Medicine [place] [address] [address] Shoshana Mills NP NO ADDRESS ON FILE Routine child health exam (Primary Dx) Social History Tobacco Use Types Packs/Day Years Used Date Smoking Tobacco: Never Assessed Sex and Gender Information Value Date Recorded Sex Assigned at Not on file 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
--- OUTSIDE RECORDS SUMMARY | 2025-09-08 11:14 | XMS_ITS | Encounter Summary ---
Author Organization [facility] Address [address] [place] [address] Care Team Providers Care Survey Researcher Name Role Phone Franky Starkey MD Primary Care Provider [phone] [phone] Encounter Details Date Type Department Care Team (Latest Contact Info) Description 12/06/2006 Outpatient Historical [facility] Medicine [place] [address] [address] Shoshana Mills NP NO ADDRESS ON FILE Acute Pharyngitis (Primary Dx); Cough Social History Tobacco Use Types Packs/Day Years Used Date Smoking Tobacco: Never Assessed Sex and Gender Information Value Date Recorded Sex Assigned at Not on file 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
--- OUTSIDE RECORDS SUMMARY | 2025-09-08 11:14 | XMS_ITS | Encounter Summary ---
Author Organization [facility] Address [address] [place] [address] Care Team Providers Care Crew Leader Name Role Phone Franky Starkey MD Primary Care Provider +1 [phone] Encounter Details Date Type Department Care Team (Latest Contact Info) Description 12/22/2001 Outpatient Historical [facility] Medicine [place] [address] [address] Nevin Hinojosa MD NO ADDRESS ON FILE OTITIS MEDIA NOS (Primary Dx); INFEC OTITIS EXTERNA NOS Social History Tobacco Use Types Packs/Day Years Used Date Smoking Tobacco: Never Assessed Sex and Gender Information Value Date Recorded Sex Assigned at Not on file 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
--- OUTSIDE RECORDS SUMMARY | 2025-09-08 11:14 | XMS_ITS | Encounter Summary ---
Author Organization [facility] Address [address] [place] [address] Care Team Providers Care Telephoto Installer Name Role Phone Franky Starkey MD Primary Care Provider +1 [phone] Encounter Details Date Type Department Care Team (Latest Contact Info) Description 08/04/2007 Outpatient [facility] [place] [address] [phone] Gi Perez, SERVICE ASSOCIATE [address] [place] [phone] Abdominal Pain, Unspecified Site (Primary Dx); Diarrhea Social History Tobacco Use Types Packs/Day Years Used Date Smoking Tobacco: Never Assessed Sex and Gender Information Value Date Recorded Sex Assigned at Not on file 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
--- OUTSIDE RECORDS SUMMARY | 2025-09-08 11:15 | XMS_ITS | Encounter Summary ---
Author Organization [facility] Address [address] [place] [address] Care Team Providers Care Underground Miner Name Role Phone Franky Starkey MD Primary Care Provider +1 [phone] Encounter Details Date Type Department Care Team (Latest Contact Info) Description 03/12/2004 Outpatient Historical [facility] Medicine [place] [address] [address] Nevin Hinojosa MD NO ADDRESS ON FILE ACUTE PHARYNGITIS (Primary Dx); ACUTE BRONCHITIS Social History Tobacco Use Types Packs/Day Years Used Date Smoking Tobacco: Never Assessed Sex and Gender Information Value Date Recorded Sex Assigned at Not on file 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
--- NOTE | 2025-09-08 11:30 | PC.NURSE ---
Patient transported to NPU via wheelchair with Security present. All patient belongings sent with patient in sealed yellow bag. Paper chart left with FREIDA Hoyos at front end mechanic.
--- NOTE | 2025-09-08 11:42 | W.PM.NPUH&PS ---
Providers/Chief Complaint Admitting Physician: Mona Cline MD Primary Care Provider: Sanjay Freedman Chief Complaint: intentional overdose HPI NPU History of Present Illness Kalia Dillard is a 25 year old male with a history of multiple inpatient psychiatric hospitalizations who presented to the emergency department after he reported taking approximately 10,000 mg of gabapentin in an effort to kill himself. The patient was admitted to the intensive care unit and observed over the next 12 hours and was transferred to the neuropsychiatric unit for further evaluation and treatment. The patient is on an involuntary hold. He reports that he had recently been discharged from [facility] after a 7-day stay there approximately 9 days ago. He had reported having overdosed on medications at that time. He reports when asked why he was here in the hospital he stated that he had not taken enough gabapentin to kill himself. He reports that he continues to use methamphetamines despite adverse consequences. His urine drug screen was positive for amphetamines on admission to the hospital. He reports that he has been using methamphetamine for several years and states having a past history of increased anger and agitation associated with its use. He denied any psychotic symptoms at this time. He had reported having last used yesterday. He reports that he has not been able to sleep for more than 20 to 30 minutes for the last 4 days. He reports that he is currently homeless and stated that he found out that his girlfriend of 2 years had cheated on him and he reported having strong urges to want to kill himself. The patient had endorsed having periods of racing thoughts and reports having periods of intense irritability with overlapping depressive symptoms and increased tearfulness. He reports that he has had problems with worsening depression beginning approximately 4 years ago. He reports having struggles with concentration. The patient states that he is now looking at serving 7 years in [facility] as he had violated some agreement that he had to go to a support program called [employer] builders to residing continue on a path of sobriety off of drugs. He states that he no longer wants to do that and simply wants to kill himself when he leaves the hospital. He endorses that he is anxious and states that he has had periods where he is excessively euphoric and impulsive that originally was associated with the use of methamphetamine. He was uncertain as to the longest period of time he had been sober off of any drugs although he had stated that he had recently completed a 21-day stay through [facility] inpatient substance abuse rehabilitation facility. Inpatient psychiatric history: The patient has at least 4 other inpatient hospitalizations and states that the first time he was admitted was 4 years ago and [place] after he had overdosed on Tylenol. He had been admitted 2 times recently over the past month at [facility] for suicidal ideation and overdose as well. Outpatient psychiatric history: The patient reports that that he has not had any significant outpatient follow-up for his mental health issues. He reports that shortly after his discharge from psychiatric facilities he stopped taking his medications. Substance abuse history: Patient reports marijuana use for several years since adolescence. He also reports methamphetamine use frequently beginning in adolescence as well. He reports 21 days is the longest period of sobriety off of methamphetamines. The patient has reported having been at several sobriety living situations including [facility] and [facility] he had reported inpatient stay for substance abuse treatment recently. Medical history: None Surgical history: None Allergies: No known drug allergies Medications: Risperidone 2 mg 3 times a day, trazodone 150 mg at night, gabapentin 400 mg 3 times a day, Wellbutrin 150 mg 3 times a day (Patient reports noncompliance to medications since discharge) Legal history: He reports some particular charges for possession. history: None Family psychiatric history: None reported Social history: The patient reports that he was raised by his parents. His mother when he was 15 years old. He had reported no prior history of sexual physical or emotional abuse. He has 1 brother. He had completed high school in [facility]. He reports that he was working in a [employer] company in [place] [facility]. He reports that he had a relationship with his now ex-girlfriend for about 2-1/2 years. He has no children and has never been . He describes currently being homeless and reports having some support from his father. Meds NPU Home Medications ?Medication ?Instructions ?Recorded ?Confirmed ?Last Taken ?Type benztropine 2 mg tablet 2 mg PO Q8H PRN dystonia 09/08/25 09/08/25 Unknown History bupropion HCl 150 mg tablet,12 hr 150 mg PO TID 09/08/25 09/08/25 Unknown History sustained-release gabapentin 400 mg capsule 400 mg PO TID 09/08/25 09/08/25 09/07/25 History risperidone 2 mg tablet 2 mg PO TID 09/08/25 09/08/25 Unknown History trazodone 150 mg tablet 150 mg PO BEDTIME 09/08/25 09/08/25 Unknown History Allergies Allergy/AdvReac Type Severity Reaction Status Date / Time No Known Allergies Allergy Verified 07/25/25 18:27 Mental Status Exam MSE Comments: Casually dressed healthy male with poor hygiene and normal gait with no evidence of any abnormal involuntary motor movements, tics, or tremors. There was substantial psychomotor agitation. His speech was normal in rate, rhythm, and prosody. His mood was described as depressed. His affect was labile with periods of intense anger and intense tearfulness. His thought process was linear, logical, and goal-directed. His thought content showed evidence of suicidal ideation with an active plan and intent on overdosing again. He denied any homicidal ideation. There was no evidence of delusional thinking. He did not appear to be responding to internal stimuli. He was alert and oriented to person, place, time, and situation. His insight was impaired. His judgment is impaired. His impulse control appeared poor. His recent and remote memory were not tested. Did at times appear somewhat paranoid. He was nihilistic. Vitals/I&O/Wt Last Vital Signs Temp 98.8 F 09/08/25 08:00 Pulse 79 09/08/25 10:30 Resp 12 09/08/25 10:30 BP 134/83 09/08/25 10:30 Pulse Ox 96 09/08/25 10:30 O2 Del Method Room Air 09/08/25 10:30 09/07/25 09/08/25 09/08/25 22:59 06:59 14:59 Intake Total 1000 / 1000 847.5 / 1847.5 1700 / 1700 Balance 1000 / 1000 847.5 / 1847.5 1700 / 1700 Weight last 48 hrs Weight 91.308 kg Weight 91.308 kg Weight 92.079 kg Data NPU 09/08/25 04:18 09/08/25 04:18 A&P Assessment and plan 1. Bipolar affective, mixed, unspec: 2. Methamphetamine-induced mood disorder: 3. Suicide attempt: 4. Intentional overdose of gabapentin: Plan: 25-year-old male with methamphetamine use who presents with mixed mood symptoms as well actively suicidal after having overdosed multiple times over the past month. #1.? Engage patient in individual milieu and group therapy. #2?? Recommend sober living treatment at the highest level of care to which the patient is willing to commit #3??? Will start Abilify oral to target manic symptoms with plan for abilify maintena. Seroquel at night for sleep. ??? #4?? TO-15 minute checks? #5?? Will attempt to gather collateral information, will hold trazodone, risperidone, gabapentin for now along with trazodone. PDMP PDMP Reviewed: Not Reviewed Attestations NPU Medical Necessity Statement*: Inpatient hospitalization is medically necessary and be clinically appropriate intervention at this time.? We will monitor/initiate medications and make changes as indicated.? He will be in the hospital for over 2 midnights.? The patient's likely length of stay 7-10 days. Coding Level of Care Code Acute Code for g Fwd Diagnoses Bipolar affective, mixed, unspec F31.60 Methamphetamine-induced mood disorder F15.94 Suicide attempt T14.91XA Intentional overdose of gabapentin T42.6X2A
[2025-09-09 02:13] VITALS: BMI 27.7
[2025-09-09 06:00] VITALS: BP 135/83; PULSE 81; RESP 14; TEMP 36.7; O2SAT 100
[2025-09-09 14:00] VITALS: BP 119/70; PULSE 79; RESP 18; TEMP 37.1; O2SAT 97
--- NOTE | 2025-09-09 15:59 | P.NPUPN_ITS ---
Subjective NPU 2 Subjective: 25-year-old male with bipolar disorder w ith mixed mood symptoms admitted with suicidal ideation and a history of noncompliance with his medications. Patient continued to isolate himself on the milieu. He had refused Abilify this morning. He had continued to report that he was good . Stating that he simply planned on overdosing on his medications and completing suicide after he was discharged from the hospital. Patient had continued to be noncompliant while reporting not having slept last night. Patient reported continued feelings of hopelessness. He endorsed some feelings of worthlessness. Mental Status Exam 2 MSE Comments: Casually dressed healthy male with poor hygiene and normal gait with no evidence of any abnormal involuntary motor movements, tics, or tremors. There was psychomotor agitation. His speech was normal in rate, rhythm, and prosody. His mood was described as depressed. His affect was restricted today. His thought process was linear, logical, and goal-directed. His thought content showed evidence of suicidal ideation with an active plan and intent on overdosing again. He denied any homicidal ideation. There was no evidence of delusional thinking. He did not appear to be responding to internal stimuli. He was alert and oriented to person, place, time, and situation. His insight was impaired. His judgment is impaired. His impulse control appeared poor. His recent and remote memory were not tested. Did at times appear somewhat paranoid. He was nihilistic. Vitals/I&O/Wt Last Vital Signs Temp 98.8 F 09/09/25 14:00 Pulse 79 09/09/25 14:00 Resp 18 09/09/25 14:00 BP 119/70 09/09/25 14:00 Pulse Ox 97 09/09/25 14:00 O2 Del Method Room Air 09/09/25 14:00 Weight last 48 hrs Weight 92.76 kg Weight 92.76 kg Weight 91.308 kg Weight 91.308 kg Weight 92.079 kg Data NPU 09/08/25 04:18 09/08/25 04:18 A&P Assessment and plan 1. Bipolar affective, mixed, unspec: 2. Methamphetamine-induced mood disorder: 3. Suicide attempt: 4. Intentional overdose of gabapentin: Plan: 25-year-old male with methamphetamine use who presents with mixed mood symptoms as well actively suicidal after having overdosed multiple times over the past month. #1.? Engage patient in individual milieu and group therapy. #2?? Recommend sober living treatment at the highest level of care to which the patient is willing to commit #3??? Hold on abilify. Continue Seroquel at night at 300mg at night with plan to titrate upward for mixed mood symptoms. ??? #4?? TO-15 minute checks? #5?? Will attempt to gather collateral information, will hold trazodone, risperidone, gabapentin for now along with trazodone. PDMP PDMP Reviewed: Not Reviewed Involuntary Hold Information 2 Hold Status: Legal Status: 96 Hour Hold Date/Time Hold Expires: 09/13 @1663 Attestations NPU 2 Medical Necessity Statement*: Inpatient hospitalization is medically necessary and be clinically appropriate intervention at this time.? We will monitor/initiate medications and make changes as indicated.? He will be in the hospital for over 2 midnights.? The patient's likely length of stay 7-10 days. Coding Level of Care Code Acute Code for [facility] Fwd Diagnoses Bipolar affective, mixed, unspec F31.60 Methamphetamine-induced mood disorder F15.94 Suicide attempt T14.91XA Intentional overdose of gabapentin T42.6X2A
--- NOTE | 2025-09-09 16:06 | PC.NURSE ---
Dr. Luis gave a verbal order to discontinue one to one sitter. [place] that it was safe to discontinue as long as he is close to nurses station and within eye sight.
[2025-09-09 20:00] VITALS: BP 116/71; PULSE 69; RESP 18; TEMP 36.7; O2SAT 99
[2025-09-10 06:00] VITALS: BP 108/71; PULSE 90; RESP 18; TEMP 37; O2SAT 98
[2025-09-10 14:00] VITALS: BP 110/76; PULSE 80; RESP 18; TEMP 37.1; O2SAT 96
--- NOTE | 2025-09-10 16:11 | P.NPUPN_ITS ---
Subjective NPU 2 Subjective: 25-year-old male with bipolar disorder w ith mixed mood symptoms admitted with suicidal ideation and a history of noncompliance with his medications. The patient had been sleeping better and apparently had been taking his Seroquel at night. He continued to refuse any daytime medications and stated that he was simply waiting here and stated that upon leaving here he would kill himself. He had been isolating himself on the milieu. He had shown little evidence of any motivation to care for himself. He had reported difficulties with feeling hopeless and stated that he was going to senior care for 7 years and he did not care about receiving any treatment for his substance use. Mental Status Exam 2 MSE Comments: Casually dressed healthy male with poor hygiene and normal gait with no evidence of any abnormal involuntary motor movements, tics, or tremors. There was psychomotor agitation. His speech was normal in rate, rhythm, and prosody. His mood was described as depressed. His affect was restricted today. His thought process was linear, logical, and goal-directed. His thought content showed evidence of suicidal ideation with an active plan and intent on overdosing again. He denied any homicidal ideation. There was no evidence of delusional thinking. He did not appear to be responding to internal stimuli. He was alert and oriented to person, place, time, and situation. His insight was impaired. His judgment is impaired. His impulse control appeared poor. His recent and remote memory were not tested. Did at times appear somewhat paranoid. He was nihilistic in thinking pattern. Vitals/I&O/Wt Last Vital Signs Temp 98.7 F 09/10/25 14:00 Pulse 80 09/10/25 14:00 Resp 18 09/10/25 14:00 BP 110/76 09/10/25 14:00 Pulse Ox 96 09/10/25 14:00 O2 Del Method Room Air 09/10/25 14:00 Weight last 48 hrs Weight 92.76 kg Weight 92.76 kg Data NPU 09/08/25 04:18 09/08/25 04:18 A&P Assessment and plan 1. Bipolar affective, mixed, unspec: 2. Methamphetamine-induced mood disorder: 3. Suicide attempt: 4. Intentional overdose of gabapentin: Plan: 25-year-old male with methamphetamine use who presents with mixed mood symptoms as well actively suicidal after having overdosed multiple times over the past month. #1.? Engage patient in individual milieu and group therapy. #2?? Recommend sober living treatment at the highest level of care to which the patient is willing to commit #3??? Hold on abilify. Increase seroquel to 400mg at night with plan to titrate upward for mixed mood symptoms. ??? #4?? TO-15 minute checks? #5?? Will attempt to gather collateral information, will hold trazodone, risperidone, gabapentin for now along with trazodone. PDMP PDMP Reviewed: Not Reviewed Involuntary Hold Information 2 Hold Status: Legal Status: 96 Hour Hold Date/Time Hold Expires: 09/13 @8338 Attestations NPU 2 Medical Necessity Statement*: Inpatient hospitalization is medically necessary and be clinically appropriate intervention at this time.? We will monitor/initiate medications and make changes as indicated.? The patient's likely length of stay 7-10 days. Coding Level of Care Code Acute Code for Chg Fwd Diagnoses Bipolar affective, mixed, unspec F31.60 Methamphetamine-induced mood disorder F15.94 Suicide attempt T14.91XA Intentional overdose of gabapentin T42.6X2A
[2025-09-10 19:20] VITALS: BP 131/70; PULSE 67; RESP 18; TEMP 37; O2SAT 98
[2025-09-11 06:00] VITALS: BP 123/71; PULSE 68; RESP 16; TEMP 37.1; O2SAT 98
[2025-09-11 13:52] VITALS: BP 135/79; PULSE 96; RESP 16; TEMP 37.1; O2SAT 99
--- NOTE | 2025-09-11 14:55 | P.NPUPN_ITS ---
Subjective NPU 2 Subjective: 25-year-old male with bipolar disorder w ith mixed mood symptoms admitted with suicidal ideation and a history of noncompliance with his medications with continued use of methamphetamine. The patient continued to isolate himself on the milieu. He was taking Seroquel at night and stated that his sleep was a little better. He continued to endorse a sense of hopelessness and stated that he had already given up and would simply kill himself when he left the hospital. The patient reported no significant problems with methamphetamine use despite the patient reporting that he had struggled with maintaining sobriety off of methamphetamine. He had also reported marijuana use. He continued to state that he was not planning on going to detention but was planning on overdosing on his medications when discharged. Patient reported having periods of intense irritability and also reported having periods where he did not require sleep for several days in a row. He had minimized any racing thoughts today. Mental Status Exam 2 MSE Comments: Casually dressed healthy male with poor hygiene and normal gait with no evidence of any abnormal involuntary motor movements, tics, or tremors. He was lying in bed and appeared disinterested and unmotivated. There was evidence of mild psychomotor retardation. His speech was normal in rate, rhythm, and prosody. His mood was described as okay. His affect was restricted in range and mood incongruent. His thought process was linear, logical, and goal-directed. His thought content showed evidence of suicidal ideation with an active plan and intent on overdosing again. He denied any homicidal ideation. There was no evidence of delusional thinking. He did not appear to be responding to internal stimuli. He was alert and oriented to person, place, time, and situation. His insight was impaired. His judgment is impaired. His impulse control appeared poor. His recent and remote memory were not tested. He continued to be somewhat guarded on interview. He was nihilistic in thinking pattern. Vitals/I&O/Wt Last Vital Signs Temp 98.7 F 09/11/25 13:52 Pulse 96 09/11/25 13:52 Resp 16 09/11/25 13:52 BP 135/79 09/11/25 13:52 Pulse Ox 99 09/11/25 13:52 O2 Del Method Room Air 09/11/25 06:00 Data NPU 09/08/25 04:18 09/08/25 04:18 A&P Assessment and plan 1. Bipolar affective, mixed, unspec: 2. Methamphetamine-induced mood disorder: 3. Suicide attempt: 4. Intentional overdose of gabapentin: Plan: 25-year-old male with methamphetamine use who presents with mixed mood symptoms as well actively suicidal after having overdosed multiple times over the past month. #1.? Engage patient in individual milieu and group therapy. #2?? Recommend sober living treatment at the highest level of care to which the patient is willing to commit #3???Continue seroquel at 400mg at night with plan to titrate upward for mixed mood symptoms. ??? #4?? TO-15 minute checks? #5?? Will attempt to gather collateral information, as patient remains on hold at this time. PDMP PDMP Reviewed: Not Reviewed Involuntary Hold Information 2 Hold Status: Legal Status: 96 Hour Hold Date/Time Hold Expires: 09/13 @1725 Attestations NPU 2 Medical Necessity Statement*: Inpatient hospitalization is medically necessary and be clinically appropriate intervention at this time.? We will monitor/initiate medications and make changes as indicated.? The patient's likely length of stay 7-10 days. Coding Level of Care Code Acute Code for [facility] Fwd Diagnoses Bipolar affective, mixed, unspec F31.60 Methamphetamine-induced mood disorder F15.94 Suicide attempt T14.91XA Intentional overdose of gabapentin T42.6X2A
[2025-09-11 20:02] VITALS: BP 132/68; PULSE 95; RESP 16; TEMP 36.9; O2SAT 100
[2025-09-12 06:00] VITALS: BP 111/72; PULSE 63; RESP 16; TEMP 36.6; O2SAT 97
[2025-09-12 14:00] VITALS: BP 132/79; PULSE 65; RESP 16; TEMP 36.9; O2SAT 97
--- NOTE | 2025-09-12 15:36 | P.NPUPN_ITS ---
Subjective NPU 2 Subjective: 25-year-old male with bipolar disorder w ith mixed mood symptoms admitted with suicidal ideation and a history of noncompliance with his medications with continued use of methamphetamine. Patient refusing medications or any particular support while refusing to engage in ADL's. The patient continued to report that he had a plan to overdose again on all of his medications when leaving here. He had reported that he has given up. He has a history of multiple suicide attempts. He had acknowledged the use of methamphetamine. He had stated that he had no intention on attending substance abuse treatment. He had endorsed no racing thoughts today but continued to report feelings of hopelessness. He had reported that he was not sleeping well although staff had noted that the patient had slept throughout the night without any incident. Mental Status Exam 2 MSE Comments: Casually dressed healthy male with poor hygiene and normal gait with no evidence of any abnormal involuntary motor movements, tics, or tremors. He was lying in bed and appeared disinterested and unmotivated. There was evidence of moderate psychomotor retardation. His speech was normal in rate, rhythm, and prosody. His mood was described as depressed. His affect was restricted in range and mood incongruent. His thought process was linear, logical, and goal-directed. His thought content showed evidence of suicidal ideation with an active plan and intent on overdosing again. He denied any homicidal ideation. There was no evidence of delusional thinking. He did not appear to be responding to internal stimuli. He was alert and oriented to person, place, time, and situation. His insight was impaired. His judgment is impaired. His impulse control appeared poor. His recent and remote memory were not tested. He continued to be somewhat guarded on interview. He was nihilistic in thinking pattern. Vitals/I&O/Wt Last Vital Signs Temp 98.5 F 09/12/25 14:00 Pulse 65 09/12/25 14:00 Resp 16 09/12/25 14:00 BP 132/79 09/12/25 14:00 Pulse Ox 97 09/12/25 14:00 O2 Del Method Room Air 09/12/25 06:00 Data NPU 09/08/25 04:18 09/08/25 04:18 A&P Assessment and plan 1. Bipolar affective, mixed, unspec: 2. Methamphetamine-induced mood disorder: 3. Suicide attempt: 4. Intentional overdose of gabapentin: Plan: 25-year-old male with methamphetamine use who presents with mixed mood symptoms as well actively suicidal after having overdosed multiple times over the past month. #1.? Engage patient in individual milieu and group therapy. #2?? Recommend sober living treatment at the highest level of care to which the patient is willing to commit #3???Continue seroquel to 400mg at night with plan to titrate upward for mixed mood symptoms. ??? #4?? TO-15 minute checks; patient having continued depressed mood. ? #5?? Will attempt to gather collateral information, as patient remains on hold at this time. PDMP PDMP Reviewed: Not Reviewed Involuntary Hold Information 2 Hold Status: Legal Status: 96 Hour Hold Date/Time Hold Expires: 09/13 @4501 Attestations NPU 2 Medical Necessity Statement*: Inpatient hospitalization is medically necessary and be clinically appropriate intervention at this time.? We will monitor/initiate medications and make changes as indicated.? The patient's likely length of stay 7-10 days. Coding Level of Care Code Acute Code for Chg Fwd Diagnoses Bipolar affective, mixed, unspec F31.60 Methamphetamine-induced mood disorder F15.94 Suicide attempt T14.91XA Intentional overdose of gabapentin T42.6X2A
[2025-09-12 20:06] VITALS: BP 127/69; PULSE 68; RESP 16; TEMP 36.5; O2SAT 99
[2025-09-13 06:00] VITALS: BP 104/64; PULSE 55; RESP 16; TEMP 36.7; O2SAT 99
[2025-09-13 14:00] VITALS: BP 122/74; PULSE 71; RESP 16; TEMP 36.9; O2SAT 100
--- NOTE | 2025-09-13 14:34 | P.NPUPN_ITS ---
Subjective NPU 2 Subjective: 25-year-old male with bipolar disorder w ith mixed mood symptoms admitted with suicidal ideation and a history of noncompliance with his medications with continued use of methamphetamine. Patient continued to report suicidal ideation with a plan to kill himself by overdosing on his medications. He had continued to be somewhat isolative and staying in bed most of the day. He had reported a history of mixed mood symptoms. He had reported struggles with concentration. Mental Status Exam 2 MSE Comments: Casually dressed healthy male with poor hygiene and normal gait with no evidence of any abnormal involuntary motor movements, tics, or tremors. He was lying in bed and appeared disinterested and unmotivated. There was evidence of moderate psychomotor retardation. His speech was normal in rate, rhythm, and prosody. His mood was described as the same. His affect was restricted in range and mood incongruent. His thought process was linear, logical, and goal-directed. His thought content showed evidence of suicidal ideation with an active plan and intent on overdosing again. He denied any homicidal ideation. There was no evidence of delusional thinking. He did not appear to be responding to internal stimuli. He was alert and oriented to person, place, time, and situation. His insight was impaired. His judgment is impaired. His impulse control appeared poor. His recent and remote memory were not tested. He continued to be somewhat guarded on interview. He was nihilistic in thinking pattern. Vitals/I&O/Wt Last Vital Signs Temp 98.0 F 09/13/25 06:00 Pulse 55 L 09/13/25 06:00 Resp 16 09/13/25 06:00 BP 104/64 09/13/25 06:00 Pulse Ox 99 09/13/25 06:00 O2 Del Method Room Air 09/13/25 06:00 Data NPU 09/08/25 04:18 09/08/25 04:18 A&P Assessment and plan 1. Bipolar affective, mixed, unspec: 2. Methamphetamine-induced mood disorder: 3. Suicide attempt: 4. Intentional overdose of gabapentin: Plan: 25-year-old male with methamphetamine use who presents with mixed mood symptoms as well actively suicidal after having overdosed multiple times over the past month. #1.? Engage patient in individual milieu and group therapy. #2?? Recommend sober living treatment at the highest level of care to which the patient is willing to commit #3???Increase seroquel 500mg at night. ??? #4?? TO-15 minute checks; patient having continued depressed mood. ? #5??Filed for 21 day hearing, hearing naun. PDMP PDMP Reviewed: Not Reviewed Involuntary Hold Information 2 Hold Status: Legal Status: 96 Hour Hold Date/Time Hold Expires: 09/13 @4592 Attestations NPU 2 Medical Necessity Statement*: Inpatient hospitalization is medically necessary and be clinically appropriate intervention at this time.? We will monitor/initiate medications and make changes as indicated.? The patient's likely length of stay 7-10 days. Coding Level of Care Code Acute Code for Chg Fwd Diagnoses Bipolar affective, mixed, unspec F31.60 Methamphetamine-induced mood disorder F15.94 Suicide attempt T14.91XA Intentional overdose of gabapentin T42.6X2A
[2025-09-13 20:09] VITALS: BP 120/62; PULSE 65; RESP 16; TEMP 36.4; O2SAT 98
[2025-09-14 06:00] VITALS: BP 115/67; PULSE 64; RESP 18; TEMP 36.5; O2SAT 98
[2025-09-14 14:00] VITALS: BP 126/68; PULSE 72; RESP 18; TEMP 36.9; O2SAT 96
--- NOTE | 2025-09-14 14:17 | P.NPUPN_ITS ---
Subjective NPU 2 Subjective: Patient presented today reporting that he is doing okay. He was initially discussing going through the 21-day hold hearing today but we had a lengthy conversation about the actual 21-day hold process and the fact that it is no more than 21 days but there is no least amount of time that has to be assigned. We also discussed Dr. Luis's concern surrounding him reporting a as recently as yesterday that he still plan to overdose. He reported some kind of epiphany and that he is 25 years old and needs to not kill himself. He reported that there was a sober living place he was going to go to and that he confirmed he was supposed to go there the day after he attempted to kill himself. We discussed getting that number and asked contacting down to vet his report. We discussed the plan to pursue the 21-day hold while we obtain some assurance that he will be safe. He denied any side effects of his medication. Mental Status Exam 2 MSE Comments: Casually dressed healthy male with poor hygiene and normal gait with no evidence of any abnormal involuntary motor movements, tics, or tremors. He was lying in bed and appeared disinterested and unmotivated. There was evidence of moderate psychomotor retardation. His speech was normal in rate, rhythm, and prosody. His mood was described as the same. His affect was restricted in range and mood incongruent. His thought process was linear, logical, and goal-directed. His thought content showed evidence of suicidal ideation with an active plan and intent on overdosing again as he struggled to answer the question differently than he had yesterday. He denied any homicidal ideation. There was no evidence of delusional thinking. He did not appear to be responding to internal stimuli. He was alert and oriented to person, place, time, and situation. His insight was impaired. His judgment is impaired. His impulse control appeared poor. His recent and remote memory were not tested. He continued to be somewhat guarded on interview. He was nihilistic in thinking pattern. Vitals/I&O/Wt Last Vital Signs Temp 97.7 F 09/14/25 06:00 Pulse 64 09/14/25 06:00 Resp 18 09/14/25 06:00 BP 115/67 09/14/25 06:00 Pulse Ox 98 09/14/25 06:00 O2 Del Method Room Air 09/14/25 06:00 Data NPU 09/08/25 04:18 09/08/25 04:18 A&P Assessment and plan 1. Bipolar affective, mixed, unspec: 2. Methamphetamine-induced mood disorder: 3. Suicide attempt: 4. Intentional overdose of gabapentin: Plan: 25-year-old male with methamphetamine use who presents with mixed mood symptoms as well actively suicidal after having overdosed multiple times over the past month. #1.? Engage patient in individual milieu and group therapy. #2?? Recommend sober living treatment at the highest level of care to which the patient is willing to commit #3??? Continue seroquel 500mg at night. ??? #4?? TO-15 minute checks; patient having continued depressed mood. ? #5?? 21 day hearing, hearing later today. PDMP PDMP Reviewed: Not Reviewed Involuntary Hold Information 2 Hold Status: Legal Status: 96 Hour Hold Date/Time Hold Expires: 09/13 @3322 Attestations NPU 2 Medical Necessity Statement*: Inpatient hospitalization is medically necessary and be clinically appropriate intervention at this time.? We will monitor/initiate medications and make changes as indicated.? The patient's likely length of stay 6-9 days. Coding Level of Care Code Acute Code for Chg Fwd Diagnoses Bipolar affective, mixed, unspec F31.60 Methamphetamine-induced mood disorder F15.94 Suicide attempt T14.91XA Intentional overdose of gabapentin T42.6X2A
--- NOTE | 2025-09-14 16:08 | PC.NURSE ---
Patient given the number to [facility]. Contact at site is Wayne [place]. Phone number is [phone]
[2025-09-14 21:27] VITALS: BP 138/74; PULSE 70; RESP 18; TEMP 36.6; O2SAT 98
[2025-09-15 06:00] VITALS: BP 114/70; PULSE 81; RESP 18; TEMP 36.4; O2SAT 99
[2025-09-15 14:00] VITALS: BP 125/80; PULSE 93; RESP 18; TEMP 37; O2SAT 99
--- NOTE | 2025-09-15 15:36 | P.NPUPN_ITS ---
Subjective NPU 2 Subjective: Patient presented today reporting that he was doing fine and was lobbying for discharge. He got very irritable and we ended up in a discussion about the fact that the information he gave about where he was gone was met by people in the program saying they did not know who he was. Then he changed his story and identified that there was another place that he had gone to and then he went on to say that he does not have the number for the place that he is going to and I will just have to go home and get it. We discussed him possibly asking his father for the number he says that his father is not answering his calls. He was very upset because he felt the right option was to discharge him and trust that he would take care of things when he left. He denied any side effects to the medication. Mental Status Exam 2 MSE Comments: Casually dressed healthy male with poor hygiene and normal gait with no evidence of any abnormal involuntary motor movements, tics, or tremors. He was lying in bed and appeared disinterested and unmotivated. There was evidence of moderate psychomotor retardation. His speech was normal in rate, rhythm, and prosody. His mood was described as anxious, I am about to go off. His affect was irritable and at times agitated. His thought process was linear, logical, and goal-directed. His thought content showed evidence of suicidal ideation with an active plan and intent on overdosing again as he struggled to answer the question differently than he had yesterday. He denied any homicidal ideation. There was no evidence of delusional thinking. He did not appear to be responding to internal stimuli. He was alert and oriented to person, place, time, and situation. His insight was impaired. His judgment is impaired. His impulse control appeared poor. His recent and remote memory were not tested. He continued to be somewhat guarded on interview. He was nihilistic in thinking pattern. Vitals/I&O/Wt Last Vital Signs Temp 97.6 F 09/15/25 06:00 Pulse 81 09/15/25 06:00 Resp 18 09/15/25 06:00 BP 114/70 09/15/25 06:00 Pulse Ox 99 09/15/25 06:00 O2 Del Method Room Air 09/15/25 06:00 Data NPU 09/08/25 04:18 09/08/25 04:18 A&P Assessment and plan 1. Bipolar affective, mixed, unspec: 2. Methamphetamine-induced mood disorder: 3. Suicide attempt: 4. Intentional overdose of gabapentin: Plan: 25-year-old male with methamphetamine use who presents with mixed mood symptoms as well actively suicidal after having overdosed multiple times over the past month. #1.? Engage patient in individual milieu and group therapy. #2?? Recommend sober living treatment at the highest level of care to which the patient is willing to commit #3??? Continue seroquel 500mg at night. ??? #4?? TO-15 minute checks; patient having continued depressed mood. ? #5?? 21 day hearing yesterday. He was placed on a 21-day hold. PDMP PDMP Reviewed: Not Reviewed Involuntary Hold Information 2 Hold Status: Legal Status: 96 Hour Hold Date/Time Hold Expires: 09/13 @0840 Attestations NPU 2 Medical Necessity Statement*: Inpatient hospitalization is medically necessary and be clinically appropriate intervention at this time.? We will monitor/initiate medications and make changes as indicated.? The patient's likely length of stay 6-9 days. Coding Level of Care Code Acute Code for [facility] Fwd Diagnoses Bipolar affective, mixed, unspec F31.60 Methamphetamine-induced mood disorder F15.94 Suicide attempt T14.91XA Intentional overdose of gabapentin T42.6X2A
--- NOTE | 2025-09-15 15:44 | PC.NURSE ---
Left message on your father Elian Dillard to return call [phone].
--- NOTE | 2025-09-15 15:59 | PC.NURSE ---
Patient request for removal of his father Elian Dillard from his contact list.
--- NOTE | 2025-09-15 16:08 | PC.NURSE ---
Patient was previously at the nurses station requesting that I contact his father regarding a request that the physician had made for us to discuss discharge plans with plans for sober living. Patient became agitated and confrontational regarding this RN contacting his father because he wasn't able to leave a message on the current line and that his dad will not answer. Patient was previously given a phone number for [facility] in [place]. Patient reports that he attempted to contact them and no one answered. Patient now rescinds his prior authorization for us to speak to any contacts and that he no longer wants sober living on discharge.
[2025-09-15 21:42] VITALS: BP 124/70; PULSE 80; RESP 18; TEMP 36.6; O2SAT 99
--- NOTE | 2025-09-16 01:07 | PC.NURSE ---
15 minute rounding appears duplicate due to daylight savings from [id number]
[2025-09-16 06:00] VITALS: BP 122/66; PULSE 71; RESP 17; TEMP 37.1; O2SAT 98; BMI 28.4
--- NOTE | 2025-09-16 11:09 | PC.NURSE ---
Patient assessment complete. He was cooperative with the assessment. He denies depression, SI/HI/AVH. He endorses anxiety rated 8/10. He was given Zyprexa 5 mg sl for this. He has a bizarre affect with smile at times. He laughs after each question stated thats because I want to get out of here.
[2025-09-16 14:00] VITALS: BP 129/76; PULSE 71; RESP 16; TEMP 36.6; O2SAT 99
--- NOTE | 2025-09-16 17:27 | P.NPUPN_ITS ---
Subjective NPU 2 Subjective: Patient presented today reporting that he is doing okay. He expressed understanding why a person who says they still want to kill themselves after they leave on would not be discharged on Wednesday but he has some frustration about this administrative underwriter following up on the reported sober living places he was exploring. He is now reporting that he does not want to discuss these places because he feels that this will make him have to stay longer. We discussed taking a day at a time and really wanting to speak with his father but he reports his father is unreachable. We discussed working with the social work team tomorrow to try to accomplish that. He denied any side effects to his medication. Mental Status Exam 2 MSE Comments: Casually dressed healthy male with poor hygiene and normal gait with no evidence of any abnormal involuntary motor movements, tics, or tremors. He was lying in bed and appeared disinterested and unmotivated. There was evidence of moderate psychomotor retardation. His speech was normal in rate, rhythm, and prosody. His mood was described as anxious, I am about to go off. His affect was irritable and at times agitated. His thought process was linear, logical, and goal-directed. His thought content showed evidence of suicidal ideation with an active plan and intent on overdosing again as he struggled to answer the question differently than he had yesterday. He denied any homicidal ideation. There was no evidence of delusional thinking. He did not appear to be responding to internal stimuli. He was alert and oriented to person, place, time, and situation. His insight was impaired. His judgment is impaired. His impulse control appeared poor. His recent and remote memory were not tested. He continued to be somewhat guarded on interview. He was nihilistic in thinking pattern. Vitals/I&O/Wt Last Vital Signs Temp 97.6 F 09/16/25 20:35 Pulse 58 L 09/16/25 20:35 Resp 17 09/16/25 20:35 BP 114/73 09/16/25 20:35 Pulse Ox 98 09/16/25 20:35 O2 Del Method Room Air 09/16/25 20:35 Weight last 48 hrs Weight 95.028 kg Data NPU 09/08/25 04:18 09/08/25 04:18 A&P Assessment and plan 1. Bipolar affective, mixed, unspec: 2. Methamphetamine-induced mood disorder: 3. Suicide attempt: 4. Intentional overdose of gabapentin: Plan: 25-year-old male with methamphetamine use who presents with mixed mood symptoms as well actively suicidal after having overdosed multiple times over the past month. #1.? Engage patient in individual milieu and group therapy. #2?? Recommend sober living treatment at the highest level of care to which the patient is willing to commit #3??? Continue seroquel 500mg at night. ??? #4?? TO-15 minute checks.. ? #5?? 21 day hearing yesterday. He was placed on a 21-day hold. PDMP PDMP Reviewed: Not Reviewed Involuntary Hold Information 2 Hold Status: Legal Status: 96 Hour Hold Date/Time Hold Expires: 09/13 @9340 Attestations NPU 2 Medical Necessity Statement*: Inpatient hospitalization is medically necessary and be clinically appropriate intervention at this time.? We will monitor/initiate medications and make changes as indicated.? The patient's likely length of stay 3-6 days. Coding Level of Care Code Acute Code for [facility] Fwd Diagnoses Bipolar affective, mixed, unspec F31.60 Methamphetamine-induced mood disorder F15.94 Suicide attempt T14.91XA Intentional overdose of gabapentin T42.6X2A
[2025-09-16 20:35] VITALS: BP 114/73; PULSE 58; RESP 17; TEMP 36.4; O2SAT 98
[2025-09-17 06:00] VITALS: BP 123/70; PULSE 112; RESP 19; TEMP 36.3; O2SAT 98
--- NOTE | 2025-09-17 13:22 | PC.NURSE ---
Pt. irritable and argumentative about not being discharged. He does not want to go straight to a sober living house from NPU. He says he will just stay here the 21 days.
--- NOTE | 2025-09-17 13:30 | PC.NURSE ---
Pt. has been up to the nurses desk several times over the past 5-10 min obsessing over being DC without going straight to the sober living house. Pt. keeps making scenarios saying well what if . Signee let pt. know he needs to discuss the DC plan and sober living arrangements with SS.
[2025-09-17 14:00] VITALS: PULSE 111; RESP 20; TEMP 37.1; O2SAT 96
--- NOTE | 2025-09-17 18:35 | P.NPUPN_ITS ---
Subjective NPU 2 Subjective: Patient presented today reporting that things are getting better. We discussed the fact that we were able to contact his father who said that he was open to him returning home as long as he was committed to his sobriety. We discussed needing to ensure that there were no guns in the home and attempting to support his reported desire to go to a sober living place. He endorsed that previous sober living attempts have had some challenges because some of these [facility] facilities a can be overwhelming as he reported having to get up early for work and so he had to get up earlier than that to do Bible study and things like that there were demanded by these programs. He endorses he is going to do what ever it takes however he denied any side effects to medication. We discussed the tentative plan for discharge tomorrow. Mental Status Exam 2 MSE Comments: This is a well-nourished well-developed white male in hospital scrubs with adequate grooming and eye contact. No abnormal movements except for mild psychomotor retardation. Cooperative with exam in no acute distress. Speech was mostly normal rate and volume. Mood described as better, affect congruent. Thought process organized. Thought content: Patient denied suicidal or homicidal ideation, there were no delusions reported or noted, he denied any auditory or visual hallucinations. Attention and concentration were intact and memory was mostly reliable but none were formally tested. He is alert and oriented x 3. Insight and judgment are improving and impulse control is limited but improving. Vitals/I&O/Wt Last Vital Signs Temp 98.4 F 09/17/25 19:39 Pulse 82 09/17/25 19:39 Resp 18 09/17/25 19:39 BP 149/98 09/17/25 19:39 Pulse Ox 99 09/17/25 19:39 O2 Del Method Room Air 09/17/25 19:39 Data NPU 09/08/25 04:18 09/08/25 04:18 A&P Assessment and plan 1. Bipolar affective, mixed, unspec: 2. Methamphetamine-induced mood disorder: 3. Suicide attempt: 4. Intentional overdose of gabapentin: Plan: 25-year-old male with methamphetamine use who presents with mixed mood symptoms as well actively suicidal after having overdosed multiple times over the past month. #1.? Engage patient in individual milieu and group therapy. #2?? Recommend sober living treatment at the highest level of care to which the patient is willing to commit #3??? Continue seroquel 500mg at night. ??? #4?? TO-15 minute checks.. ? #5?? 21 day hearing yesterday. He was placed on a 21-day hold. PDMP PDMP Reviewed: Not Reviewed Involuntary Hold Information 2 Hold Status: Legal Status: 21 Day Hold Date/Time Hold Expires: 21 day hold ^10-05-25 Attestations NPU 2 Medical Necessity Statement*: Inpatient hospitalization is medically necessary and the clinically appropriate intervention at this time.? We will monitor/initiate medications and make changes as indicated.? The patient's likely length of stay 1-3 days. Coding Level of Care Code Acute Code for [facility] Fwd Diagnoses Bipolar affective, mixed, unspec F31.60 Methamphetamine-induced mood disorder F15.94 Suicide attempt T14.91XA Intentional overdose of gabapentin T42.6X2A
[2025-09-17 19:39] VITALS: BP 149/98; PULSE 82; RESP 18; TEMP 36.9; O2SAT 99
[2025-09-18 06:00] VITALS: BP 121/62; PULSE 82; RESP 18; TEMP 36.5; O2SAT 98
--- NOTE | 2025-09-18 08:55 | P.NPUDS_ITS ---
Diagnoses at Discharge Discharge Diagnosis 1. Bipolar affective, mixed, unspec: 2. Methamphetamine-induced mood disorder: 3. Suicide attempt: 4. Intentional overdose of gabapentin: Reason for Visit Reason for Visit: intentional overdose Involuntary Hold Information Hold Status: Legal Status: Hold Date/Time Hold Expires: hold ^10-05-25 Mental Status Exam MSE Comments: This is a well-nourished well-developed white male in hospital scrubs with dee dee quate grooming and eye contact. No abnormal movements except for mild psychomotor retardation. Cooperative with exam in no acute distress. Speech was mostly normal rate and volume. Mood described as better, affect congruent. Thought process organized. Thought content: Patient denied suicidal or homicidal ideation, there were no delusions reported or noted, he denied any auditory or visual hallucinations. Attention and concentration were intact and memory was mostly reliable but none were formally tested. He is alert and oriented x 3. Insight and judgment are improving and impulse control is limited but improving. Discharge Data Studies Completed and Pending: Laboratory Results WBC 7.57 10^3/uL (3.2 9-11.43) 09/08/25 04:18 RBC 5.09 10^6/uL (3.8 5-5.65) 09/08/25 04:18 Hgb 16.30 g/dL (11.27 -16.99) 09/08/25 04:18 Hct 47.1 % (37-53) 09/08/25 04:18 MCV 92.5 fl (82-101) 09/08/25 04:18 MCH 32.0 pg (27-33) 09/08/25 04:18 MCHC 34.6 g/dL (30-55) 09/08/25 04:18 RDW 12.2 % (12.1-15.1 ) 09/08/25 04:18 Plt Count 315 10^3/cmm (157 -399) 09/08/25 04:18 MPV 8.5 fL (7.4-10.4) 09/08/25 04:18 Neut % (Auto) 57.2 % 09/08/25 04:18 Lymph % (Auto) 24.0 % 09/08/25 04:18 Kaufman % (Auto) 14.1 % 09/08/25 04:18 Eos % (Auto) 3.6 % 09/08/25 04:18 Baso % (Auto) 0.8 % 09/08/25 04:18 Neut # (Auto) 4.33 10^3/uL (1.8 -7.7) 09/08/25 04:18 Lymph # (Auto) 1.8 10^3/uL (0.8- 4.8) 09/08/25 04:18 Kaufman # (Auto) 1.1 10^3/uL (0.2- 0.9) H 09/08/25 04:18 Eos # (Auto) 0.3 10^3/uL (0.0- 0.8) 09/08/25 04:18 Baso # (Auto) 0.1 10^3/uL (0.0- 0.1) 09/08/25 04:18 Nucleated RBC % (a uto) 0 % 09/08/25 04:18 Nucleated RBCs # 0.0 /100WBC 09/08/25 04:18 Specimen Type Arterial 09/07/25 18:32 Sample Site Radial, right 09/07/25 18:32 ABG pH 7.44 (7.35-7.45) 09/07/25 18:32 ABG pCO2 38.5 mmHg (35-45) 09/07/25 18:32 ABG pO2 96.1 mmHg (80.0-1 00.0) 09/07/25 18:32 ABG PO2/FiO2 Ratio 457 09/07/25 18:32 ABG HCO3 26.0 mmol/L (22-2 6) 09/07/25 18:32 ABG O2 Saturation 98.3 09/07/25 18:32 ABG Base Excess 1.8 mmol/L (-2.0- 2.0) 09/07/25 18:32 Iggy Test Pos 09/07/25 18:32 A-a O2 Gradient 0.7 mmHg (5-10) L 09/07/25 18:32 Hematocrit 51.5 % (42-52) 09/07/25 18:32 Hgb O2 Saturation 91.2 % (95-100) L 09/07/25 18:32 Carboxyhemoglobin 6.2 %THgb (0.4-20 .1) 09/07/25 18:32 Methemoglobin 1.0 % (0.4-1.5) 09/07/25 18:32 Total Hemoglobin 16.8 g/dL (14-18) 09/07/25 18:32 Sodium 139.0 mmol/L (131 -143) 09/07/25 18:32 Potassium 3.6 mmol/L (3.5-5 .0) 09/07/25 18:32 Glucose 96.0 mg/dL (70-11 5) 09/07/25 18:32 Ionized Calcium 1.2 mmol/L (1.1-1 .4) 09/07/25 18:32 O2 Delivery Device Room air 09/07/25 18:32 FiO2 21.0 % 09/07/25 18:32 Washer And Crusher Tender ID glc 09/07/25 18:32 Sodium 140 mmol/L (136-1 45) 09/08/25 04:18 Potassium 4.0 mmol/L (3.5-5 .1) 09/08/25 04:18 Chloride 104 mmol/L (98-10 7) 09/08/25 04:18 Carbon Dioxide 24 mmol/L (22-29) 09/08/25 04:18 Anion Gap 16.0 (5-19) 09/08/25 04:18 BUN 16 mg/dL (6-20) 09/08/25 04:18 Creatinine 0.9 mg/dL (0.7-1. 2) 09/08/25 04:18 GFR Calculation 102.0 mL/min (90- 130) 09/08/25 04:18 Glucose 82 mg/dL (65-115) 09/08/25 04:18 Calculated Osmolal ity 290 mOsm/kg (285- 295) 09/08/25 04:18 Lactic Acid 1.2 mmol/L (0.5-2 .2) 09/07/25 17:33 Calcium 8.8 mg/dL (8.5-10 .5) 09/08/25 04:18 Phosphorus 4.1 mg/dL (2.5-4. 5) 09/08/25 04:18 Magnesium 2.2 mg/dL (1.7-2. 3) 09/08/25 04:18 Total Bilirubin 1.0 mg/dL (0.15-1 .2) 09/08/25 04:18 AST 13 U/L (0-40) 09/08/25 04:18 ALT 15 U/L (0-41) 09/08/25 04:18 Alkaline Phosphata se 61 U/L (40-130) 09/08/25 04:18 Creatine Kinase 83 U/L (39-308) 09/07/25 17:33 Total Protein 6.5 g/dL (6.6-8.7 ) L 09/08/25 04:18 Albumin 4.3 g/dL (3.5-5.2 ) 09/08/25 04:18 Globulin 2.2 g/dL (1.3-4.6 ) 09/08/25 04:18 Salicylates < 0.3 mg/dL (3-10 ) L 09/07/25 17:33 Urine Opiates Scre en Negative ng/mL (N egative) 09/07/25 19:14 Acetaminophen < 5.0 ug/mL (10-3 0) L 09/07/25 17:33 Ur Barbiturates Sc reen Negative ng/mL (N egative) 09/07/25 19:14 Ur Phencyclidine S crn Negative ng/mL (N egative) 09/07/25 19:14 Ur Amphetamines Sc reen Positive ng/mL (N egative) H 09/07/25 19:14 U Benzodiazepines Scrn Negative ng/mL (N egative) 09/07/25 19:14 Urine Cocaine Scre en Negative ng/mL (N egative) 09/07/25 19:14 U Marijuana (THC) Screen Positive ng/mL (N egative) H 09/07/25 19:14 Ethyl Alcohol < 10 mg/dL (0-10) 09/07/25 17:33 Vitals: Last Vital Signs Temp 97.7 F 09/18/25 06:00 Pulse 82 09/18/25 06:00 Resp 18 09/18/25 06:00 BP 121/62 09/18/25 06:00 Pulse Ox 98 09/18/25 06:00 O2 Del Method Room Air 09/18/25 06:00 Discharge Plan Discharge Patient Disposition: Home Condition: Stable Prescriptions: New hydroxyzine pamoate 25 mg Capsule 50 mg PO Q6H PRN (Reason: Anxiety) 30 Days Qty: 120 1RF quetiapine 200 mg tablet 200 mg PO BEDTIME 30 Days Qty: 30 1RF Rx Instructions: Take with 300mg for 500mg total quetiapine 300 mg Tablet 300 mg PO BEDTIME 30 Days Qty: 30 1RF Rx Instructions: Take with 200mg for 500 mg total trazodone 50 mg Tablet 50 mg PO BEDTIME PRN (Reason: insomnia) 30 Days Qty: 30 1RF olanzapine 5 mg Tablet,Disintegrating 5 mg PO DAILY PRN (Reason: Agitation/Psychosis) 30 Days Qty: 30 1RF Discontinued bupropion HCl 150 mg tablet sustained-release 12 hr 150 mg PO TID gabapentin 400 mg capsule 400 mg PO TID risperidone 2 mg tablet 2 mg PO TID trazodone 150 mg tablet 150 mg PO BEDTIME benztropine 2 mg tablet 2 mg PO Q8H PRN (Reason: dystonia) Discharge Order = DC NOW: Discharge Order (Routine); Ordered 09/18/25 Ordered By: Jermaine Arreola Referrals: Sanjay Freedman, LONG TERM ACUTE CARE REGISTERED NURSE [Primary Care Provider, [facility]] Discharge Diet: Regular Discharge Activity: Resume usual activity Patient Instructions: Opioid Safety, Patient Portal & Fausto Instructions Discharge Attestations NPU Time Spent in Discharge Care*: less than 30 min Specific Discharge Activities: Specific discharge activities: educating patient, discussing with case monitor/social workers/dc planners, documenting/other paperwork and evaluating patient/reviewing data Coding Level of Care Code Acute Code for [facility] Fwd Diagnoses Bipolar affective, mixed, unspec F31.60 Methamphetamine-induced mood disorder F15.94 Suicide attempt T14.91XA Intentional overdose of gabapentin T42.6X2A
[2025-09-18 12:40] VITALS: BP 147/85; PULSE 102; RESP 16; TEMP 36.7; O2SAT 97
[2025-09-18 13:38] VITALS: BP 147/85; PULSE 102; RESP 16; TEMP 36.7; O2SAT 97
--- NOTE | 2025-09-18 14:51 | PC.NURSE ---
Pt is discharging to home address [address] [facility]. Medicaid ride hasn't shown up and calling Find my ride , pt is becoming upset with the process, pt is dressed out and ready for picking supervisor. This nurse is currently on hold with the broadcast transmitter operator.
== END 2025-09-18 15:40 | disposition home or self-care (01) | DRG 817 ==
LOC: ER 19:44 → ER IP 20:54 → ICU 09-08 01:40 → NP 09-08 12:12
PROVIDERS: Emergency Medicine; Internal Medicine; Admitting Provider Student in an Organized Health Care Education/Training Program; Emergency Provider Physician Assistant; PCP Nurse Practitioner Family; Visit Provider Psychiatry & Neurology Psychiatry
DX: T42.6X2A Poisoning by other antiepileptic and sedative-hypnotic drugs, intentional self-harm, initial encounter (principal); B88.8 Other specified infestations; E87.6 Hypokalemia; Z63.0 Problems in relationship with spouse or partner; Z59.00 Homelessness unspecified; F31.60 Bipolar disorder, current episode mixed, unspecified; F15.94 Other stimulant use, unspecified with stimulant-induced mood disorder; Z91.51 Personal history of suicidal behavior; Y92.9 Unspecified place or not applicable
CPT/HCPCS: 36415; 36600; 80051; 80053; 80306; 80307; 82330; 82550; 82805; 83605; 83735; 84100; 85025; 93005; 96372; 97150; 97165; 99285; G0378; J1644; J2470; J7030; J9999